=== PATIENT | male | born 1950 | race Caucasian/White ===

== ENCOUNTER 2025-01-19 19:59 | Emergency (ER) | payer OTHER ==
[~2025-01-19] VITALS: Ht 175.3 cm; Wt 90.9 kg
--- NOTE | 2025-01-19 20:23 | ED.PDOC ---
HPI (NEURO) HPI Comments 74-year-old male came to ER via EMS for altered level of consciousness. Per EMS, patient was found unresponsive, altered, lying in the floor of his house. Patient was last seen normal by family members 2 days ago. On arrival paramedics, patient was seen lying on the ground, urinary incontinent, with left-sided weakness/numbness, left facial asymmetry, slurred speech, appears confused and disoriented. Blood sugar on scene was 168. Per family patient has no history of seizures or strokes. Chief Complaint: Altered level of consciousness Time Seen by MD: 20:22 Reviewed Notes: Trekking Guide Notes Information Source: Emergency Med Personnel Mode of Arrival: EMS Severity: Moderate Dizziness/Weakness Severity: Unable to do activities Timing: Days Duration: Since onset Prehospital treatment: Accucheck Weakness Location: (L) Sided Numbness Location: (L) Sided Circumstances: Spontaneous History of: Hypertension Associated Signs and Symptoms: Altered Mental Status, Weakness, Numbness Past Medical History PAST MEDICAL HISTORY: HTN Surgical History: Pacemaker Family History Family History: Pt Confused Social History Smoker: Pt Confused Alcohol: Pt Confused Drugs: Pt Confused Lives In: Home Constitutional: denies: chills, diaphoresis, fatigue, fever, malaise, sweats, weakness, others EENTM: denies: blurred vision, double vision, ear bleeding, ear discharge, ear drainage, ear pain, ear ringing, eye pain, eye redness, hearing loss, mouth pain, mouth swelling, nasal discharge, nose bleeding, nose congestion, nose pain, photophobia, tearing, throat pain, throat swelling, voice changes, others Respiratory: denies: cough, hemoptysis, orthopnea, SOB at rest, shortness of breath, SOB with excertion, stridor, wheezing, others Cardiovascular: denies: chest pain, dizzy spells, diaphoresis, Dyspnea on exertion, edema, irregular heart beat, left arm pain, lightheadedness, pal pitations, PND, syncope, others Gastrointestinal: denies: abdomen distended, abdominal pain, blood streaked bowels, constipated, diarrhea, dysphagia, difficulty swallowing, hematemesis, melena, nausea, poor appetite, poor fluid intake, rectal bleeding, rectal pain, vomiting, others Genitourinary: denies: burning, dysuria, flank pain, frequency, hematuria, incontinence, penile discharge, penile sore, pain, testicle pain, testicle swelling, urgency, others Neurological: reports: left sided numbness, left sided weakness, speech problems, others (Left facial asymmetry); denies: dizziness, fainting, headache, numbness, paresthesia, pre-existing deficit, right sided numbness, right sided weakness, seizure, tingling, tremors, weakness Musculoskeletal: denies: back pain, gout, joint pain, joint swelling, muscle pain, muscle stiffness, neck pain, others Integumetry: denies: bruises, change in color, change in hair/nails, dryness, laceration, lesions, lumps, rash, wounds, others Allergic/Immunocompromised: denies: Difficulty Healing, Frequent Infections, Hives, Itching, others Hematologic/Lymphatic: denies: anemia, blood clots, easy bleeding, easy bruising, swollen glands, others Endocrine: denies: excessive hunger, excessive sweating, excessive thirst, excessive urination, flushing, intolerance to cold, intolerance to heat, unexplained weight gain, unexplained weight loss, others Psychiatric: denies: anxiety, bipolar disorder, depression, hopeless, panic disorder, schizophrenia, sleepless, suicidal, others Physical Exam General Appearance: No Apparent Distress, Normal HEENT: Normal ENT Inspection, Pharynx Normal, TMs Normal Neck: Full Range of Motion, Non-Tender, Normal, Normal Inspection Respiratory: Chest Non-Tender, Lungs Clear, No Accessory Muscle Use, No Respiratory Distress, Normal Breath Sounds Cardiovascular: No Edema, No JVD, No Murmur, No Gallop, Normal Peripheral Pu lses, Regular Rate/Rhythm Breast Exam: Deferred Gastrointestinal: No Organomegaly, Non Tender, No Pulsatile Mass, Normal Bowel Sounds, Soft Genitalia: Deferred Pelvic: Deferred Rectal: Deferred Extremities: No calf tenderness, Normal capillary refill, Normal inspection, Normal range of motion, Non-tender, No pedal edema Musculoskeletal : Apperance: Normal Neurologic: Alert, deputy manager II-XII nml as Tested, No Motor Deficits, Normal Affect, Normal Mood, No Sensory Deficits Cerebellar Function: Normal Reflexes: Normal Skin: Dry, Normal Color, Warm Lymphatic: No Adenopathy Was a procedure done? Was a procedure done?: No Differential Diagnosis (SZ) Seizure: CVA/TIA, Hypoxemia, Idiopathic, Mass Lesion, Syncope, Encephalopathy, Epilepsy-Break Through, Epilepsy-Status CVA: CVA, Encephalopathy X-Ray, Labs, Meds, VS Vital Signs Date Time Temp Pulse Resp B/P (MAP) Pulse Ox O2 Delivery O2 Flow Rate FiO2 01/19/25 20:10 62 01/19/25 20:08 99.0 90 22 130/59 (82) 90 99.0 Lab Test 01/19/25 22:53 01/19/25 21:48 01/19/25 21:11 01/19/25 20:15 Range/Units Troponin I High Sensitivity 813 *H 839 *H 757 *H </=54 ng/L Urine Color Light-orange Yellow Urine Clarity Turbid H Clear Urine pH 5.5 5.0-9.0 Urine Specific [place] 1.032 1.001-1.035 Urine Protein 1+ H Negative Urine Ketones Trace Negative Urine Blood 3+ H Negative /uL Urine Nitrite Negative Negative Urine Bilirubin Negative Negative Urine Urobilinogen Normal Negative mg/dL Urine Leukocyte Esterase Negative Negative /uL Urine RBC 16 0 - 3 /hpf Urine Microscopic WBC 7 H 0-3 /HPF Urine Squamous Epithelial Cells Few <5 /hpf Urine Bacteria None seen None Seen /hpf Urine Mucus Few None Seen Urine Glucose Normal Normal mg/dL Urine Opiates Screen Neg NEGATIVE Urine Fentanyl Screen Neg NEGATIVE Urine Barbiturates Screen Neg NEGATIVE Urine Phencyclidine Screen Neg NEGATIVE Urine Amphetamines Screen Neg NEGATIVE Urine Benzodiazepines Screen Neg NEGATIVE Urine Cocaine Screen Neg NEGATIVE Urine Cannabinoids Screen Neg NEGATIVE Prothrombin Time 11.6 9.3-11.8 sec Prothrombin Time INR 1.11 0.9-1.15 Activated Partial Thromboplast Time 24.2 L 24.5-34.5 SEC Creatine Kinase 10316 H 46-171 U/L White Blood Count 15.2 H 4.4-10.8 10^3/uL Red Blood Count 4.93 4.5-5.90 10^6/uL Hemoglobin 13.7 13.5-17.5 g/dL Hematocrit 42.9 41.0-53.0 % Mean Corpuscular Volume 87.0 80.0-100.0 fL Mean Corpuscular Hemoglobin 27.8 L 28.0-32.0 pg Mean Corpuscular Hemoglobin Concent 31.9 L 32.0-36.0 g/dL Red Cell Distribution Width 16.6 H 11.8-14.3 % Platelet Count 165 140-450 10^3/uL Mean Platelet Volume 8.2 6.9-10.8 fL Neutrophils (%) (Auto) 88.2 H 37.0-80.0 % Lymphocytes (%) (Auto) 4.2 L 10.0-50.0 % Monocytes (%) (Auto) 6.8 0.0-12.0 % Eosinophils (%) (Auto) 0.1 0.0-7.0 % Basophils (%) (Auto) 0.7 0.0-2.0 % Neutrophils # (Auto) 13.4 H 1.6-8.6 10 ^3/uL Lymphocytes # (Auto) 0.6 0.4-5.4 10 ^3/uL Monocytes # (Auto) 1.0 0-1.3 10 ^3/uL Eosinophils # (Auto) 0 0-0.8 10 ^3/uL Basophils # (Auto) 0.1 0-0.2 10 ^3/uL Nucleated Red Blood Cells 0.0 % Sodium Level 141 136-145 mmol/L Potassium Level 5.5 H 3.5-5.1 mmol/L Chloride Level 109 H 98-107 mmol/L Carbon Dioxide Level 21 20-31 mmol/L Anion Gap 11 5-15 Blood Urea Nitrogen 25 H 9-23 mg/dL Creatinine 1.36 H 0.700-1.30 mg/dL Glomerular Filtration Rate Calc 55 >90 mL/min BUN/Creatinine Ratio 18.4 10.0-20.0 Serum Glucose 133 H 74-106 mg/dL Calcium Level 9.6 8.7-10.4 mg/dL Magnesium Level 1.9 1.6-2.6 mg/dL Total Bilirubin 0.8 0.2-1.0 mg/dL Aspartate Amino Transferase (AST) 300 H 13-40 U/L Alanine Aminotransferase (ALT) 67 H 7-40 U/L Alkaline Phosphatase 105 46-116 U/L B-Type Natriuretic Peptide 1687.35 0-100 pg/mL Total Protein 7.0 5.7-8.2 g/dL Albumin 4.3 3.2-4.8 g/dL Plasma/Serum Blood Alcohol < 3.0 <10 mg/dL Current Medications Medications (Trade) Dose Ordered Sig/[place] Route Start Time Stop Time Status Last Admin Aspirin 300 mg ONCE ONCE [place] 01/19/25 22:00 01/19/25 22:01 DC 01/19/25 22:00 Sodium Chloride 1,000 ml @ 1,000 mls/hr Q1H ONCE IV 01/19/25 22:00 01/19/25 22:59 DC 01/19/25 22:00 EXAM: CT STROKE CTH HISTORY: left sided weakness, left facial droop COMPARISON: None TECHNIQUE: Axial images were obtained and reformatted in coronal and sagittal planes. All CT scans at this medical facility are performed using dose modulation techniques as appropriate to a performed exam including the following: Automated exposure control was utilized; adjustment of the MA and/or KV according to patient size; and use of iterative reconstruction technique. CT Dose: CTDI volume is 55 mGy. Dose-length product is 968 mGy*cm FINDINGS: Supratentorial Region: Large right MCA territorial infarcts involving the frontal, parietal and temporal lobes as well as the right caudate head and lentiform nucleus. 5 mm [id number] midline shift noted. Mild subfalcine herniation. No intracranial hemorrhage is noted. Posterior Fossa: No acute abnormality. Brainstem: Unremarkable. Sellar/Suprasellar Region: Unremarkable. Ventricles, Cisterns, Sulci: Age-appropriate. Orbits: Unremarkable. Paranasal Sinuses: Unremarkable. Mastoid Air Cells: Unremarkable. Vasculature: Dense right MCA reflecting thrombosis. Bones/Soft Tissues: No acute abnormality. Other: None. IMPRESSION: 1. Large acute right MCA territorial infarct involving the right frontal, parietal and temporal lobes as well as the right caudate head and lentiform nucleus with evidence of thrombosis of the M1 segment of the right MCA. 5 mm [id number] midline shift and mild subfalcine herniation noted. No intracranial hemorrhage. CHEST RADIOGRAPH Indication: weakness Technique: Single frontal view of the chest was obtained Comparison: None FINDINGS: Lines and Tubes: Dual-chamber pacemaker in place with pulse generator over the left chest. Lungs: No focal consolidation. Pleura: No effusion. No pneumothorax. Cardiomediastinal contours: Cardiac size enlarged. Bones: No acute osseous abnormality. IMPRESSION: 1. No acute cardiopulmonary disease. Time of 1ST Reevaluation: 20:19 Reevaluation 1ST: Unchanged Patient Education/Counseling: Diagnosis, Treatment Family Education/Counseling: No Family Present Departure 1 Departure Time of Disposition: 23:45 Impression: Primary Impression: Ischemic stroke Additional Impressions: Rhabdomyolysis Dehydration Intermediate coronary syndrome Disposition: 09 ADMITTED INPATIENT Admit to: Tele Condition: Critical Comments Acute Right MCA Stroke with Left-sided Weakness Chief Complaint: Found down with left-sided weakness and facial droop History of Present Illness: 74-year-old male with history of hypertension and prior pacemaker placement who was found down at his residence by family members. Patient was last known well approximately two days ago. Upon discovery, patient was noted to have new onset left facial droop, left-sided weakness, and expressive aphasia. Due to unknown time of onset exceeding tPA window (last known well >48 hours ago), patient was not a candidate for thrombolytic therapy. Initial evaluation revealed evidence of large acute right MCA stroke on imaging, accompanied by laboratory abnormalities including elevated troponins and acute kidney injury, likely related to prolonged down time. Review of Systems: Constitutional: Found down for prolonged period Neurological: Positive for left facial droop, left-sided weakness, expressive aphasia Other systems: Limited by patient's communication difficulties Medications: Not available due to patient's condition Allergies: Not available due to patient's condition Past Medical History: 1. Hypertension 2. Cardiac history requiring pacemaker Physical Exam: Neurological: - Left facial droop present - Left-sided weakness - Expressive aphasia noted Lab Results: WBC: 15.2, elevated Troponin trend: 757 ? 839 ? 813 Creatinine: 25.1 (severely elevated) Potassium: 5.5 (elevated) Evidence of rhabdomyolysis noted Imaging and Other Relevant Results: CT Head: Large acute right MCA stroke Chest X-ray: No acute pathology Medical Decision Making: Summary Statement: 74-year-old male with history of hypertension and pacemaker found down after approximately 48 hours with evidence of large right MCA stroke, complicated by acute kidney injury and rhabdomyolysis. Problem List: 1. Acute right MCA stroke 2. Acute kidney injury 3. Rhabdomyolysis 4. Hyperkalemia 5. Elevated troponin Differential Diagnosis: 1. Cardioembolic stroke 2. Large vessel atherosclerotic disease 3. Watershed infarct 4. Hemorrhagic conversion ED Course: Patient received IV fluids and rectal aspirin. Not a candidate for tPA due to unknown time of onset >48 hours. Admission planned for further management. Assessment and Plan: 1. Acute Right MCA Stroke: - Admit to Stroke Unit - Neurology consultation - Continue aspirin - Initiate stroke workup 2. Acute Kidney Injury and Rhabdomyolysis: - Aggressive IV fluid hydration - Serial creatinine and CK monitoring - Nephrology consultation 3. Hyperkalemia (K 5.5): - Close monitoring - Medical management as per nephrology recommendations 4. Elevated Troponin: - Cardiology consultation - Serial troponin monitoring - Evaluate for acute coronary syndrome vs. demand ischemia Billing Information: ICD-10: I63.411 - Cerebral infarction due to embolism of right middle cerebral artery ICD-10: N17.9 - Acute kidney failure, unspecified ICD-10: M62.82 - Rhabdomyolysis ICD-10: E87.5 - Hyperkalemia Critical Care Note Critical Care Time?: Yes (35 min-critical care time only) Critical care comment: CVA Total critical care time: Approximately 36 minutes Due to a high probability of clinically significant, life threatening deterioration, the patient required my highest level of preparedness to intervene emergently and I personally spent this critical care time directly and personally managing the patient. This critical care time included obtaining a history; examining the patient; pulse oximetry; ordering and review of studies; arranging urgent treatment with development of a management plan; evaluation of patient's response to treatment; frequent reassessment; and, discussions with other providers. This critical care time was performed to assess and manage the high probability of imminent, life-threatening deterioration that could result in multi-organ failure. It was exclusive of separately billable procedures and treating other patients. Stability Stability form required: No Heart Score Heart Score: Heart Score Response (Comments) Value History Slightly Suspicious 0 EKG Repolarization Disturb 1 Age >65 2 Risk Factors 1 or 2 risk factors 1 Troponin >3 x's Normal limit 2 Total 6 I personally scribed for MATILDA WISEMAN MD ([email or web address]) on 01/19/25 at 20:23. Electronically submitted by Vincent Rolle ([email or web address]). I personally scribed for MATILDA WISEMAN MD ([email or web address]) on 01/19/25 at 22:33. Electronically submitted by Vincent Rolle ([email or web address]). MATILDA WISEMAN MD January 19, 2025 20:23
[2025-01-19 20:42] LABS: Basophils # (auto) 0.1 10 ^3/uL (0-0.2); Basophils % (auto) 0.7 % (0.0-2.0); Eosinophils # (auto) 0 10 ^3/uL (0-0.8); Eosinophils % (auto) 0.1 % (0.0-7.0); Hematocrit 42.9 % (41.0-53.0); Hemoglobin 13.7 g/dL (13.5-17.5); Lymphocytes # (auto) 0.6 10 ^3/uL (0.4-5.4); Lymphocytes % (auto) 4.2 % (10.0-50.0); Mean Corpuscular Hemoglobin 27.8 pg (28.0-32.0); Mean Corpuscular Hgb Conc. 31.9 g/dL (32.0-36.0); Monocytes % (auto) 6.8 % (0.0-12.0); Neutrophils # (auto) 13.4 10 ^3/uL (1.6-8.6); Neutrophils % (auto) 88.2 % (37.0-80.0); Platelet Count (auto) 165 10^3/uL (140-450); Red Blood Cells 4.93 10^6/uL (4.5-5.90); Red Cell Distribution Width 16.6 % (11.8-14.3); White Blood Cell 15.2 10^3/uL (4.4-10.8)
[2025-01-19 20:52] LABS: Albumin 4.3 g/dL (3.2-4.8); Alkaline Phosphatase 105 U/L (46-116); Anion Gap 11 (5-15); BUN/Creatinine Ratio 18.4 (10.0-20.0); Bilirubin, Total 0.8 mg/dL (0.2-1.0); Calcium 9.6 mg/dL (8.7-10.4); Carbon Dioxide 21 mmol/L (20-31); Magnesium 1.9 mg/dL (1.6-2.6); Sodium 141 mmol/L (136-145)
[2025-01-19 20:55] LABS: Alanine Aminotransferase 67 U/L (7-40); Aspartate Aminotransferase 300 U/L (13-40); Blood Urea Nitrogen 25 mg/dL (9-23); Chloride 109 mmol/L (98-107); Glucose 133 mg/dL (74-106); Potassium 5.5 mmol/L (3.5-5.1)
--- NOTE | 2025-01-19 21:13 | DVH ---
CHEST RADIOGRAPH Indication: weakness Technique: Single frontal view of the chest was obtained Comparison: None FINDINGS: Lines and Tubes: Dual-chamber pacemaker in place with pulse generator over the left chest. Lungs: No focal consolidation. Pleura: No effusion. No pneumothorax. Cardiomediastinal contours: Cardiac size enlarged. Bones: No acute osseous abnormality. IMPRESSION: 1. No acute cardiopulmonary disease.
--- NOTE | 2025-01-19 21:21 | DVH ---
EXAM: CT STROKE CTH HISTORY: left sided weakness, left facial droop COMPARISON: None TECHNIQUE: Axial images were obtained and reformatted in coronal and sagittal planes. All CT scans at this medical facility are performed using dose modulation techniques as appropriate t o a performed exam including the following: Automated exposure control was utilized; adjustment of th e MA and/or KV according to patient size; and use of iterative reconstruction technique. CT Dose: CTDI volume is 55 mGy. Dose-length product is 968 mGy*cm FINDINGS: Supratentorial Region: Large right MCA territorial infarcts involving the frontal, parietal and temp oral lobes as well as the right caudate head and lentiform nucleus. 5 mm [id number] midline shift noted. Mild subfalcine herniation. No intracranial hemorrhage is noted. Posterior Fossa: No acute abnormality. Brainstem: Unremarkable. Sellar/Suprasellar Region: Unremarkable. Ventricles, Cisterns, Sulci: Age-appropriate. Orbits: Unremarkable. Paranasal Sinuses: Unremarkable. Mastoid Air Cells: Unremarkable. Vasculature: Dense right MCA reflecting thrombosis. Bones/Soft Tissues: No acute abnormality. Other: None. IMPRESSION: 1. Large acute right MCA territorial infarct involving the right frontal, parietal and temporal lobes as well as the right caudate head and lentiform nucleus with evidence of thrombosis of the M1 segmen t of the right MCA. 5 mm [id number] midline shift and mild subfalcine herniation noted. No intracr anial hemorrhage. Critical Result: Stroke Alert Findings discussed with Dr. Robertson , at 01/19/2025 09:15 PM, and acknowledged receipt and understandi ng of the findings. ..
[2025-01-19 21:34] LABS: INR 1.11 (0.9-1.15); Partial Thromboplastin Time 24.2 SEC (24.5-34.5); Prothrombin Time 11.6 sec (9.3-11.8)
[2025-01-19 21:50] VITALS: PULSE 60; RESP 30; O2SAT 95
[2025-01-19] MEDS: SODIUM CHLORIDE 0.9% 1,000 ML IV ONE (22:00)
[2025-01-19] MEDS: ASPirin 300 MG RECTAL SUPP PR ONE ×2 (22:00→22:03)
[2025-01-19 22:01] LABS: Urine Bacteria None Seen /hpf (None Seen)
[2025-01-19 22:15] LABS: Urine Blood 3+ /uL (Negative); Urine Clarity Turbid (Clear); Urine Color Light-Orange (Yellow); Urine Mucus FEW (None Seen); Urine Protein, UAD 1+ (Negative); Urine Specific Gravity 1.032 (1.001-1.035); Urine Squamous Epithelial Cell FEW /hpf (<5); Urine Urobilinogen Normal (Negative); Urine WBC 7 /HPF (0-3); Urine pH 5.5 (5.0-9.0)
[2025-01-19 22:27] LABS: Amphetamine Screen, Urine Neg (NEGATIVE); Barbiturate Scree,Urine Neg (NEGATIVE); Benzodiazephine Screen, Urine Neg (NEGATIVE); Cannabinoid Screen, Urine Neg (NEGATIVE); Cocaine Screen, Urine Neg (NEGATIVE); Opiate Scree,Urine Neg (NEGATIVE); Phencyclidine Screen, Urine Neg (NEGATIVE)
[2025-01-20] MEDS: IOHEXOL 350 MG/ML 100ML IJ ONE (00:10)
--- NOTE | 2025-01-20 00:53 | DVH ---
INDICATION: left sided weakness COMPARISON: None TECHNIQUE: CTA head without and with intravenous contrast. CTA neck with intravenous contrast. 3D image postprocessing was performed on a dedicated workstation and images were used for interpretation and reporting. Radiation Dose Information: CT Dose: CTDI volume is 22 mGy. Dose-length product is 871 mGy*cm FINDINGS: Left-sided cardiac device with partially visualized leads. CTA head: There is normal enhancement of the visualized distal internal carotid, anterior and middle cerebral a rteries. There is a normal anterior communicating artery complex. There are bilateral posterior com municating arteries. The vertebral, basilar, cerebellar and posterior cerebral arteries are within n ormal limits. The early parenchymal enhancement is grossly unremarkable. The visualized intracrania l venous structures are grossly unremarkable. CTA neck: The visualized thoracic aortic arch and proximal great vessels are unremarkable. The left common, internal and external carotid arteries are within normal limits. The right common, internal and external carotid arteries are within normal limits. The cervical segments of the right and left vertebral arteries are within normal limits. The biapical lungs demonstrate prominent interstitial opacities diffusely which may represent pulmona ry edema versus chronic interstitial disease. The surrounding soft tissues and osseous structures ar e otherwise unremarkable. IMPRESSION: No evidence of hemodynamically significant intracranial stenosis, proximal occlusion or aneurysm. No evidence of hemodynamically significant cervical stenosis or dissection. All CT scans at this medical facility are performed using dose modulation techniques as appropriate t o a performed exam including the following: Automated exposure control was utilized; adjustment of th e MA and/or KV according to patient size; and use of iterative reconstruction technique.
[2025-01-20 02:20] VITALS: BP 162/56; PULSE 60; RESP 27; TEMP 98.2; O2SAT 97
--- NOTE | 2025-01-20 06:09 | ECG ---
[facility] Test Date: 2025-01-19 Test Time: 20:10:29 Pat Name: DENTON GOYAL Department: ED Room: Gender: M Systems Architect: : [id number] Requested By: MATILDA WISEMAN Order Number: [id number] Reading MD: Rufino Hendricks Measurements Intervals [place] Rate: 62 P: 0 [place]: 53 QRS: -69 QRSD: 151 T: 81 QT: 456 QTc: 463 Interpretive Statements Ventricular-paced rhythm No further analysis attempted due to paced rhythm Electronically Signed On 01-20-2025 21:04:19 PDT by Rufino Hendricks Please click the below link to view image of tracing.
== END 2025-01-20 01:18 | disposition short-term general hospital (02) ==
LOC: ER 19:59 → EDBD 19:59 → ER 01-20 01:18
DX: M62.82 Rhabdomyolysis (principal); I63.9 Cerebral infarction, unspecified; E86.0 Dehydration; I20.0 Unstable angina; I10 Essential (primary) hypertension; Z95.0 Presence of cardiac pacemaker
CPT/HCPCS: 36415; 70450; 70496; 70498; 71045; 80053; 80307; 80320; 81001; 82550; 83735; 83880; 84484; 85025; 85610; 85730; 93005; 96360; 96361; 99285; J7030; Q9967

== ENCOUNTER 2025-07-10 18:20 | Inpatient (IN) | payer OTHER ==
[~2025-07-10] VITALS: Ht 170.2 cm; Wt 93.5 kg
[2025-07-10 18:44] VITALS: PULSE 79; RESP 27; O2SAT 94
--- NOTE | 2025-07-10 19:00 | ED.PDOC ---
Altered Mental Status HPI Comments 74-year-old male with a history of prior CVA resides at home with family but is on a trach and vent at baseline now brought in by ambulance after decreased mental status over the last 2 days. Family stated to EMS that the patient is usually alert and interactive but over the last couple of days his then somnolent and not responding well Chief Complaint: ALOC Time Seen by MD: 18:47 Allergies: Coded Allergies: NO KNOWN ALLERGIES (Unverified , 01/19/25) Information Source: Emergency Med Personnel Mode of Arrival: EMS Severity: Severe Timing: Days Duration: Since onset Past Medical History PAST MEDICAL HISTORY: CVA, HTN Surgical History: Pacemaker Surgical History (Other): Tracheostomy Family History Family History: Pt Confused Social History Smoker: Pt Confused Alcohol: Pt Confused Drugs: Pt Confused Lives In: Home Unable to Obtain due to: Altered Mental Status Physical Exam Exam Comments Appears chronically ill and bed-bound General Appearance: Mild Distress HEENT: Normal ENT Inspection, Pharynx Normal, TMs Normal Neck: Other (Trach in place, currently on vent with no air leaks noted) Respiratory: Chest Non-Tender, Lungs Clear, No Accessory Muscle Use, No Respiratory Distress, Normal Breath Sounds Cardiovascular: No Edema, No JVD, No Murmur, No Gallop, Normal Peripheral Pulses, Regular Rate/Rhythm Breast Exam: Deferred Gastrointestinal: No Organomegaly, Non Tender, No Pulsatile Mass, Normal Bowel Sounds, Soft Genitalia: Deferred Pelvic: Deferred Rectal: Deferred Extremities: No calf tenderness, Normal capillary refill, Normal inspection, Normal range of motion, Non-tender, No pedal edema Musculoskeletal : Apperance: Normal Neurologic: Other (Obtunded, nonverbal) Cerebellar Function: NOT DONE Reflexes: Normal Skin: Dry, Normal Color, Warm Lymphatic: No Adenopathy EKG EKG : Cardiac Rhythm: Aflutter Comments A flutter noted, normal rate Was a procedure done? Was a procedure done?: No Differential Diagnosis (ALOC) Differential Diagnosis: Dehydration, Hypoglycemia, Encephalopathy, Meningitis, Sepsis, Seizure, CVA, SAH, Drug Overdose, ETOH Intoxication, Heart Failure, Renal Failure, Other X-Ray, Labs, Meds, VS Vital Signs Date Time Temp Pulse Resp B/P (MAP) Pulse Ox O2 Delivery O2 Flow Rate FiO2 07/10/25 23:54 60 18 100/43 (62) 99 07/10/25 23:13 60 18 125/32 (63) 99 07/10/25 22:51 62 15 98 Trach Collar 10 100 100 07/10/25 22:43 60 14 111/39 (63) 100 07/10/25 22:30 60 18 127/31 (63) 98 35 07/10/25 22:00 70 122/40 (67) 100 07/10/25 21:45 62 18 122/40 (67) 07/10/25 21:30 60 18 120/40 (66) 100 07/10/25 21:15 60 18 121/29 (59) 100 07/10/25 21:00 60 18 127/31 (63) 100 07/10/25 20:45 61 18 119/40 (66) 100 07/10/25 20:30 60 18 82/37 (52) 98 07/10/25 20:15 60 15 94/43 (60) 97 07/10/25 20:00 60 18 96/45 (62) 100 50 07/10/25 20:00 63 07/10/25 19:45 61 13 96/45 (62) 100 07/10/25 19:30 61 18 100 Mechanical Ventilator+ 100 100 07/10/25 19:30 61 18 81/39 (53) 100 07/10/25 19:00 98.4 59 13 79/26 (43) 100 98.4 07/10/25 18:56 60 07/10/25 18:44 79 27 94 Trach Collar 10 100 100 07/10/25 18:44 79 27 86/47 (60) 94 07/10/25 18:25 62 18 86/47 (60) 100 100 Lab Test 07/10/25 23:48 07/10/25 23:45 07/10/25 22:11 07/10/25 20:45 Range/Units Urine Color Yellow Yellow Urine Clarity Clear Clear Urine pH 6.5 5.0-9.0 Urine Specific [place] 1.027 1.001-1.035 Urine Protein Negative Negative Urine Ketones Negative Negative Urine Blood Negative Negative /uL Urine Nitrite Negative Negative Urine Bilirubin Negative Negative Urine Urobilinogen 2 H Negative mg/dL Urine Leukocyte Esterase Negative Negative /uL Urine RBC None seen 0 - 3 /hpf Urine Microscopic WBC 1 0-3 /HPF Urine Squamous Epithelial Cells Few <5 /hpf Urine Bacteria None seen None Seen /hpf Urine Hyaline Casts Few 0 - 2 /lpf Urine Glucose Normal Normal mg/dL Urine Opiates Screen Pos NEGATIVE Urine Fentanyl Screen Neg NEGATIVE Urine Barbiturates Screen Neg NEGATIVE Urine Phencyclidine Screen Neg NEGATIVE Urine Amphetamines Screen Neg NEGATIVE Urine Benzodiazepines Screen Neg NEGATIVE Urine Cocaine Screen Neg NEGATIVE Urine Cannabinoids Screen Neg NEGATIVE Troponin I High Sensitivity 463 *H </=54 ng/L White Blood Count 7.2 4.4-10.8 10^3/uL Red Blood Count 3.82 L 4.5-5.90 10^6/uL Hemoglobin 10.7 L 13.5-17.5 g/dL Hematocrit 34.5 L 41.0-53.0 % Mean Corpuscular Volume 90.3 80.0-100.0 fL Mean Corpuscular Hemoglobin 28.0 28.0-32.0 pg Mean Corpuscular Hemoglobin Concent 31.0 L 32.0-36.0 g/dL Red Cell Distribution Width 18.3 H 11.8-14.3 % Platelet Count 68 L 140-450 10^3/uL Mean Platelet Volume 12.2 H 6.9-10.8 fL Neutrophils (%) (Auto) 76.7 37.0-80.0 % Lymphocytes (%) (Auto) 13.7 10.0-50.0 % Monocytes (%) (Auto) 7.5 0.0-12.0 % Eosinophils (%) (Auto) 1.9 0.0-7.0 % Basophils (%) (Auto) 0.2 0.0-2.0 % Neutrophils # (Auto) 5.5 1.6-8.6 10 ^3/uL Lymphocytes # (Auto) 1.0 0.4-5.4 10 ^3/uL Monocytes # (Auto) 0.5 0-1.3 10 ^3/uL Eosinophils # (Auto) 0.1 0-0.8 10 ^3/uL Basophils # (Auto) 0 0-0.2 10 ^3/uL Nucleated Red Blood Cells 0.1 % Platelet Estimate Decreased Large Platelets Few Anisocytosis (manual) Slight Test 07/10/25 20:07 07/10/25 19:22 07/10/25 19:15 Range/Units Troponin I High Sensitivity 445 *H 455 *H </=54 ng/L Blood Gas Specimen Type Arterial Blood Gas Sample Site Right radial Blood Gas Patient Temperature 37.0 Arterial Blood Date Drawn [id number] Arterial Blood pH 7.472 H 7.350-7.450 Arterial Blood Partial Pressure CO2 42.3 35.0-48.0 mmHg Arterial Blood Partial Pressure O2 402.6 *H 83.0-108.0 mmHg Arterial Blood HCO3 30.2 H 21.0-28.0 mmol/L Arterial Blood Oxygen Saturation 99.8 H 94.0-98.0 % Arterial Blood Base Excess 6.0 H -2.0-3.0 mmol/L Arterial Blood Oxyhemoglobin 98.7 H 94.0-98.0 % Arterial Blood Carboxyhemoglobin 0.6 0.5-1.5 % Arterial Blood Methemoglobin 0.5 0.0-1.5 % Shawn Test Modified Blood Gas Total Hemoglobin 13.30 L 13.5-17.5 g/dL Blood Gas Set Respiration Rate 18.0 Blood Gas Modality Vent - ac Blood Gas Spontaneous Rate 18 FiO2 % 100.0 Blood Gas Tidal Volume 500.0 Blood Gas Spontaneous Tidal Volume 582 Blood Gas Inspiratory Pressure 22.0 Blood Gas PEEP or CPAP 5.0 Bl Gas Inspiratory/Expiratory Ratio 1:2 Blood Gas Critical Value Read Back Yes Blood Gas Notified Whom katty Loyola Blood Gas Notified Time [id number] Blood Gas Notified By michelle Melissa Prothrombin Time 11.4 9.3-11.8 sec Prothrombin Time INR 1.08 0.9-1.15 Activated Partial Thromboplast Time 24.6 24.5-34.5 SEC Sodium Level 171 *H 136-145 mmol/L Potassium Level 4.7 3.5-5.1 mmol/L Chloride Level 125 H 98-107 mmol/L Carbon Dioxide Level 35 H 20-31 mmol/L Anion Gap 11 5-15 Blood Urea Nitrogen 58 H 9-23 mg/dL Creatinine 1.17 0.700-1.30 mg/dL Glomerular Filtration Rate Calc 66 >90 mL/min BUN/Creatinine Ratio 49.6 H 10.0-20.0 Serum Glucose 121 H 74-106 mg/dL Lactic Acid Level 1.9 0.4-2.0 mmol/L Calcium Level 9.1 8.7-10.4 mg/dL Magnesium Level 2.7 H 1.6-2.6 mg/dL Total Bilirubin 0.2 0.2-1.0 mg/dL Aspartate Amino Transferase (AST) 157 H 13-40 U/L Alanine Aminotransferase (ALT) 363 H 7-40 U/L Alkaline Phosphatase 133 H 46-116 U/L Total Protein 6.4 5.7-8.2 g/dL Albumin 3.5 3.2-4.8 g/dL Plasma/Serum Blood Alcohol < 3.0 <10 mg/dL Current Medications Medications (Trade) Dose Ordered Sig/Dayna Route Start Time Stop Time Status Last Admin Sodium Chloride 1,000 ml @ 1,000 mls/hr Q1H ONCE IVB 07/10/25 19:00 07/10/25 19:59 DC 07/10/25 19:36 Sodium Chloride 1,000 ml @ 1,000 mls/hr Q1H ONCE IV 07/10/25 20:45 07/10/25 21:44 DC 07/10/25 20:30 Piperacillin Sod/ Tazobactam Sod 100 ml @ 100 mls/hr ONCE ONCE IV 07/10/25 20:45 07/10/25 21:44 DC 07/11/25 00:00 Vancomycin HCl 250 ml @ 250 mls/hr ONCE ONCE IV 07/10/25 20:45 07/10/25 21:44 DC 07/10/25 21:02 Time of 1ST Reevaluation: 18:58 Reevaluation 1ST: Unchanged Patient Education/Counseling: Other, Pt Unresponsive Family Education/Counseling: No Family Present SEPSIS Sepsis Screen Date sepsis recognized/suspect: Jul 10, 2025 Time Sepsis recognized/suspect: 1824 Recent Procedure: No On Antibiotic Therapy: No Respiratory Rate >20: Yes Heart Rate >90: No Temp<36 C (96.8 F) or >38.3 C: No SBP <90 or MAP <65 mmHG: No New Acute Mental Status Change: Yes Is the patient on CPAP, BIPAP,: Yes Physician Orders Chest Portable (07/10/25 18:51) Head Without Contrast (07/10/25 18:51) Antique Repairer (07/10/25 18:51) Blood Culture (07/10/25 18:51) Ventilator Orders (07/10/25 19:30) Abg W/ Co-Ox (07/10/25 19:30) Respiratory Culture W/ Gs (07/10/25 19:30) Norepinephrine 8 Mg/250ml Kit (Levophed) (07/10/25 20:45) Insert/Manage Urinary Catheter QSHIFT (07/10/25 20:57) Vital Signs Date Time Temp Pulse Resp B/P (MAP) Pulse Ox O2 Delivery O2 Flow Rate FiO2 07/10/25 23:54 60 18 100/43 (62) 99 07/10/25 23:13 60 18 125/32 (63) 99 07/10/25 22:51 62 15 98 Trach Collar 10 100 100 07/10/25 22:43 60 14 111/39 (63) 100 07/10/25 22:30 60 18 127/31 (63) 98 35 07/10/25 22:00 70 122/40 (67) 100 07/10/25 21:45 62 18 122/40 (67) 07/10/25 21:30 60 18 120/40 (66) 100 07/10/25 21:15 60 18 121/29 (59) 100 07/10/25 21:00 60 18 127/31 (63) 100 07/10/25 20:45 61 18 119/40 (66) 100 07/10/25 20:30 60 18 82/37 (52) 98 07/10/25 20:15 60 15 94/43 (60) 97 07/10/25 20:00 60 18 96/45 (62) 100 50 07/10/25 20:00 63 07/10/25 19:45 61 13 96/45 (62) 100 07/10/25 19:30 61 18 100 Mechanical Ventilator+ 100 100 07/10/25 19:30 61 18 81/39 (53) 100 07/10/25 19:00 98.4 59 13 79/26 (43) 100 98.4 07/10/25 18:56 60 07/10/25 18:44 79 27 94 Trach Collar 10 100 100 07/10/25 18:44 79 27 86/47 (60) 94 07/10/25 18:25 62 18 86/47 (60) 100 100 Laboratory Tests Test 07/10/25 19:15 07/10/25 20:45 Lactic Acid Level 1.9 mmol/L (0.4-2.0) White Blood Count 7.2 10^3/uL (4.4-10.8) Medications Medications Dose Ordered Sig/Dayna Route Start Time Stop Time Status Last Admin Dose Admin Piperacillin Sod/ Tazobactam Sod 100 ml @ 100 mls/hr ONCE ONCE IV 07/10/25 20:45 07/10/25 21:44 DC 07/11/25 00:00 Sodium Chloride 1,000 ml @ 1,000 mls/hr Q1H ONCE IV 07/10/25 20:45 07/10/25 21:44 DC 07/10/25 20:30 Sodium Chloride 1,000 ml @ 1,000 mls/hr Q1H ONCE IVB 07/10/25 19:00 07/10/25 19:59 DC 07/10/25 19:36 Vancomycin HCl 250 ml @ 250 mls/hr ONCE ONCE IV 07/10/25 20:45 07/10/25 21:44 DC 07/10/25 21:02 Departure 1 Departure Time of Disposition: 21:00 Impression: Primary Impression: Metabolic encephalopathy Additional Impressions: Altered mental status Severe dehydration Hypernatremia Hypotension Disposition: ADMITTED INPATIENT Admit to: Tele Condition: Guarded Comments 74-year-old male with a history of prior stroke on a vent at home now with decreased mental status. On lab review the patient appears very dehydrated with a severe hypernatremia 167. Troponin elevated at 455. BUN creatinine and elevated 38 and 1.03. Patient was given IV fluids and IV antibiotics. His blood pressure improved. Patient will need to be admitted for supportive care and further workup. Critical Care Note Critical Care Time?: Yes (35 min-critical care time only) Critical care comment: Total critical care time: Approximately 36 minutes Due to a high probability of clinically significant, life threatening deterioration, the patient required my highest level of preparedness to intervene emergently and I personally spent this critical care time directly and personally managing the patient. This critical care time included obtaining a history; examining the patient; pulse oximetry; ordering and review of studies; arranging urgent treatment with development of a management plan; evaluation of patient's response to treatment; frequent reassessment; and, discussions with other providers. This critical care time was performed to assess and manage the high probability of imminent, life-threatening deterioration that could result in multi-organ failure. It was exclusive of separately billable procedures and treating other patients. Stability Stability form required: No Heart Score Heart Score: Heart Score Response (Comments) Value History Slightly Suspicious 0 EKG Repolarization Disturb 1 Age >65 2 Risk Factors 1 or 2 risk factors 1 Troponin Normal limit 0 Total 4 MATILDA WISEMAN MD Jul 10, 2025 19:00
--- NOTE | 2025-07-10 19:04 | ECG ---
[facility] Test Date: 2025-07-10 Test Time: 18:56:46 Pat Name: DENTON GOYAL Department: ED Room: 0204T Gender: M Bradder: gary : 1950 Requested By: MATILDA WISEMAN Order Number: [id number] Reading MD: Rufino Hendricks Measurements Intervals [place] Rate: 60 P: 0 CT: 0 QRS: 264 QRSD: 143 T: 98 QT: 503 QTc: 503 Interpretive Statements Afib/flutter and ventricular-paced rhythm No further analysis attempted due to paced rhythm Baseline wander in lead(s) II,III,aVF Electronically Signed On 07-16-2025 10:06:40 PST by Rufino Hendricks Please click the below link to view image of tracing.
[2025-07-10 19:30] VITALS: PULSE 61; RESP 18; O2SAT 100
[2025-07-10] MEDS: SODIUM CHLORIDE 0.9% 1,000 ML IVB ONE (19:36)
[2025-07-10 19:42] LABS: INR 1.08 (0.9-1.15); Partial Thromboplastin Time 24.6 SEC (24.5-34.5); Prothrombin Time 11.4 sec (9.3-11.8)
[2025-07-10 19:45] LABS: Albumin 3.5 g/dL (3.2-4.8); Anion Gap 11 (5-15); BUN/Creatinine Ratio 49.6 (10.0-20.0); Calcium 9.1 mg/dL (8.7-10.4); Potassium 4.7 mmol/L (3.5-5.1); Total Protein 6.4 g/dL (5.7-8.2)
[2025-07-10 20:00] VITALS: BP 96/45; PULSE 60; RESP 18; O2SAT 100
[2025-07-10 20:01] LABS: Base Excess 6.0 mmol/L (-2.0-3.0)
[2025-07-10] MEDS: SODIUM CHLORIDE 0.9% 1,000 ML IV ONE (20:30)
[2025-07-10 20:37] LABS: Alanine Aminotransferase 363 U/L (7-40); Alkaline Phosphatase 133 U/L (46-116); Bilirubin, Total 0.2 mg/dL (0.2-1.0); Blood Urea Nitrogen 58 mg/dL (9-23); Carbon Dioxide 35 mmol/L (20-31); Chloride 125 mmol/L (98-107); Glucose 121 mg/dL (74-106); Magnesium 2.7 mg/dL (1.6-2.6)
[2025-07-10 20:40] LABS: Sodium 171 mmol/L (136-145)
[2025-07-10] MEDS: NOREPINEPHRINE 8 MG/250ML KIT 250 ML IV SCH (20:45)
[2025-07-10] MEDS: PIPERACILLIN-TAZOB 3.375GM 100 ML IV ONE ×2 (20:45)
--- NOTE | 2025-07-10 20:51 | DVH ---
CHEST RADIOGRAPH Indication: SOB Technique: Single frontal view of the chest was obtained Comparison: XY CHEST XRAY 1 VIEW on DOS: 01/19/25 FINDINGS: Lines and Tubes: Tracheostomy tube in place. Pacemaker in place Lungs: No focal consolidation. Pleura: No effusion. No pneumothorax. Cardiomediastinal contours: Cardiomegaly with small left pleural effusion Bones: No acute osseous abnormality. IMPRESSION: 1. Stable cardiomegaly with pulse generator over the left chest. 2. Tracheostomy tube in place. 3. Small left pleural effusion.
[2025-07-10] MEDS: VANCOMYCIN 1GM/250ML KIT 250 ML IV ONE ×2 (21:02→21:06)
[2025-07-10 21:38] LABS: Hematocrit 34.5 % (41.0-53.0); Hemoglobin 10.7 g/dL (13.5-17.5); Mean Corpuscular Hemoglobin 28.0 pg (28.0-32.0); Mean Corpuscular Volume 90.3 fL (80.0-100.0); Nucleated Red Blood Cells % 0.1 %
[2025-07-10 21:54] LABS: Anisocytosis Slight
[2025-07-10 22:30] VITALS: BP 127/31; PULSE 60; RESP 18; O2SAT 98
[2025-07-10 22:51] VITALS: PULSE 62; RESP 15; O2SAT 98
--- NOTE | 2025-07-10 23:07 | DVH ---
EXAM: CT HEAD WITHOUT CONTRAST INDICATION: ALOC TECHNIQUE: CT of the head without intravenous contrast. Radiation Dose Information: CT Dose: CTDI volume is 53.54 mGy. Dose-length product is 967.11 mGy*cm The dose indicators for CT are the volume Computed Tomography (CT) Dose Index (CTDIvol) and the Dose Length Product (DLP), and are measured in units of mGy and mGy-cm, respectively. These indicators are not patient dose, but values generated from the CT scanner acquisition factors. The report includes radiation exposure data for exposures received during this examination. COMPARISON: CT ANGIO HEAD/NECK on DOS: 01/20/25, CT STROKE CTH on DOS: 01/19/25 FINDINGS: There is no evidence of acute intracranial hemorrhage, extra-axial collection, mass effect, midline shift, herniation or hydrocephalus. The ventricles, sulci and cisterns are age appropriate. Large remote infarct throughout of the right temporal lobe extending into the inferior frontal and inferior parietal lobes. Patchy periventricular and subcortical white matter hypoattenuation is nonspecific but may be related to small vessel ischemic disease. The visualized paranasal sinuses and mastoid air cells are clear. The surrounding soft tissues and osseous structures are unremarkable. IMPRESSION: No acute intracranial abnormality.
[2025-07-11] VITALS (42 sets, daily range): BP systolic 97–125; BP diastolic 40–78; PULSE 60–71; RESP 8–21; TEMP 97.9–98.4; O2SAT 97–100
[2025-07-11] MEDS ORDERED: MORPHINE SULFATE INJ 2 MG/ml SYRG IV PRN
[2025-07-11] MEDS ORDERED: NITROGLYCERIN 0.4 MG SL TAB SL PRN
[2025-07-11 00:14] LABS: Amphetamine Screen, Urine Neg (NEGATIVE); Barbiturate Scree,Urine Neg (NEGATIVE); Benzodiazephine Screen, Urine Neg (NEGATIVE); Cannabinoid Screen, Urine Neg (NEGATIVE); Cocaine Screen, Urine Neg (NEGATIVE); Opiate Scree,Urine Pos (NEGATIVE); Phencyclidine Screen, Urine Neg (NEGATIVE)
[2025-07-11 00:27] LABS: Urine Protein, UAD Negative (Negative)
[2025-07-11] MEDS ORDERED: ALBUTEROL SULF 2.5 MG/0.5ML(0.5%) NEB SOLN NEB PRN (00:30)
[2025-07-11] MEDS ORDERED: ONDANSETRON HCL 4 MG/2 ML VIAL IV PRN (00:30)
[2025-07-11] MEDS ORDERED: ACETAMINOPHEN 325 MG TAB PO PRN (00:30)
[2025-07-11] MEDS: D5W/SOD CHL 0.45% 1,000 ML IV SCH (03:00)
[2025-07-11 04:40] LABS: Potassium 4.0 mmol/L (3.5-5.1)
[2025-07-11 04:41] LABS: Calcium 9.3 mg/dL (8.7-10.4); Chloride 127 mmol/L (98-107)
[2025-07-11 04:42] LABS: Sodium 167 mmol/L (136-145)
[2025-07-11 04:46] LABS: BUN/Creatinine Ratio 36.9 (10.0-20.0); Blood Urea Nitrogen 38 mg/dL (9-23); Glucose 112 mg/dL (74-106)
--- NOTE | 2025-07-11 05:01 | DVHHP2 ---
Review of Systems Allergies: Coded Allergies: NO KNOWN ALLERGIES (Unverified , 01/19/25) Medications Current Medications Medications Dose Ordered Sig/Dayna Route Start Time Stop Time Status Last Admin Dose Admin Norepinephrine Bitartrate 250 ml @ 3.75 mls/hr Q24H IV 07/10/25 20:45 Nitroglycerin 0.4 mg Q5MINP PRN SL 07/11/25 00:00 Morphine Sulfate 2 mg Q30M PRN IV 07/11/25 00:00 Dextrose/Sodium Chloride 1,000 ml @ 85 mls/hr [id number] IV 07/11/25 00:30 07/11/25 03:00 85 MLS/HR Albuterol 2.5 mg Q6HPRN PRN NEB 07/11/25 00:30 Ceftriaxone Sodium 50 ml @ 100 mls/hr DAILY@09 IV 07/11/25 09:00 Exam Vital Signs Vital Signs Date Time Temp Pulse Resp B/P (MAP) Pulse Ox O2 Delivery O2 Flow Rate FiO2 07/11/25 04:36 60 21 104/41 (62) 97 30 07/11/25 04:36 Mechanical Ventilator+ 07/11/25 01:00 98.4 98.4 07/10/25 22:51 10 Labs/Xrays Labs Test 07/11/25 04:12 07/10/25 23:48 07/10/25 23:45 07/10/25 22:11 Range/Units Sodium Level 167 *H 136-145 mmol/L Potassium Level 4.0 3.5-5.1 mmol/L Chloride Level 127 H 98-107 mmol/L Blood Urea Nitrogen 38 #H 9-23 mg/dL Creatinine 1.03 0.700-1.30 mg/dL Glomerular Filtration Rate Calc 77 >90 mL/min BUN/Creatinine Ratio 36.9 H 10.0-20.0 Serum Glucose 112 H 74-106 mg/dL Calcium Level 9.3 8.7-10.4 mg/dL Urine Color Yellow Yellow Urine Clarity Clear Clear Urine pH 6.5 5.0-9.0 Urine Specific [place] 1.027 1.001-1.035 Urine Protein Negative Negative Urine Ketones Negative Negative Urine Blood Negative Negative /uL Urine Nitrite Negative Negative Urine Bilirubin Negative Negative Urine Urobilinogen 2 H Negative mg/dL Urine Leukocyte Esterase Negative Negative /uL Urine RBC None seen 0 - 3 /hpf Urine Microscopic WBC 1 0-3 /HPF Urine Squamous Epithelial Cells Few <5 /hpf Urine Bacteria None seen None Seen /hpf Urine Hyaline Casts Few 0 - 2 /lpf Urine Glucose Normal Normal mg/dL Urine Opiates Screen Pos NEGATIVE Urine Fentanyl Screen Neg NEGATIVE Urine Barbiturates Screen Neg NEGATIVE Urine Phencyclidine Screen Neg NEGATIVE Urine Amphetamines Screen Neg NEGATIVE Urine Benzodiazepines Screen Neg NEGATIVE Urine Cocaine Screen Neg NEGATIVE Urine Cannabinoids Screen Neg NEGATIVE Troponin I High Sensitivity 463 *H </=54 ng/L Test 07/10/25 20:45 07/10/25 19:22 07/10/25 19:15 Range/Units White Blood Count 7.2 4.4-10.8 10^3/uL Red Blood Count 3.82 L 4.5-5.90 10^6/uL Hemoglobin 10.7 L 13.5-17.5 g/dL Hematocrit 34.5 L 41.0-53.0 % Mean Corpuscular Volume 90.3 80.0-100.0 fL Mean Corpuscular Hemoglobin 28.0 28.0-32.0 pg Mean Corpuscular Hemoglobin Concent 31.0 L 32.0-36.0 g/dL Red Cell Distribution Width 18.3 H 11.8-14.3 % Platelet Count 68 L 140-450 10^3/uL Mean Platelet Volume 12.2 H 6.9-10.8 fL Neutrophils (%) (Auto) 76.7 37.0-80.0 % Lymphocytes (%) (Auto) 13.7 10.0-50.0 % Monocytes (%) (Auto) 7.5 0.0-12.0 % Eosinophils (%) (Auto) 1.9 0.0-7.0 % Basophils (%) (Auto) 0.2 0.0-2.0 % Neutrophils # (Auto) 5.5 1.6-8.6 10 ^3/uL Lymphocytes # (Auto) 1.0 0.4-5.4 10 ^3/uL Monocytes # (Auto) 0.5 0-1.3 10 ^3/uL Eosinophils # (Auto) 0.1 0-0.8 10 ^3/uL Basophils # (Auto) 0 0-0.2 10 ^3/uL Nucleated Red Blood Cells 0.1 % Platelet Estimate Decreased Large Platelets Few Anisocytosis (manual) Slight Blood Gas Specimen Type Arterial Blood Gas Sample Site Right radial Blood Gas Patient Temperature 37.0 Arterial Blood Date Drawn [id number] Arterial Blood pH 7.472 H 7.350-7.450 Arterial Blood Partial Pressure CO2 42.3 35.0-48.0 mmHg Arterial Blood Partial Pressure O2 402.6 *H 83.0-108.0 mmHg Arterial Blood HCO3 30.2 H 21.0-28.0 mmol/L Arterial Blood Oxygen Saturation 99.8 H 94.0-98.0 % Arterial Blood Base Excess 6.0 H -2.0-3.0 mmol/L Arterial Blood Oxyhemoglobin 98.7 H 94.0-98.0 % Arterial Blood Carboxyhemoglobin 0.6 0.5-1.5 % Arterial Blood Methemoglobin 0.5 0.0-1.5 % Shawn Test Modified Blood Gas Total Hemoglobin 13.30 L 13.5-17.5 g/dL Blood Gas Set Respiration Rate 18.0 Blood Gas Modality Vent - ac Blood Gas Spontaneous Rate 18 FiO2 % 100.0 Blood Gas Tidal Volume 500.0 Blood Gas Spontaneous Tidal Volume 582 Blood Gas Inspiratory Pressure 22.0 Blood Gas PEEP or CPAP 5.0 Bl Gas Inspiratory/Expiratory Ratio 1:2 Blood Gas Critical Value Read Back Yes Blood Gas Notified Whom katty [place] Blood Gas Notified Time [id number] Blood Gas Notified By michelle Melissa Prothrombin Time 11.4 9.3-11.8 sec Prothrombin Time INR 1.08 0.9-1.15 Activated Partial Thromboplast Time 24.6 24.5-34.5 SEC Lactic Acid Level 1.9 0.4-2.0 mmol/L Magnesium Level 2.7 H 1.6-2.6 mg/dL Total Bilirubin 0.2 0.2-1.0 mg/dL Aspartate Amino Transferase (AST) 157 H 13-40 U/L Alanine Aminotransferase (ALT) 363 H 7-40 U/L Alkaline Phosphatase 133 H 46-116 U/L Total Protein 6.4 5.7-8.2 g/dL Albumin 3.5 3.2-4.8 g/dL Plasma/Serum Blood Alcohol < 3.0 <10 mg/dL SEPSIS Sepsis Screen Date sepsis recognized/suspect: Jul 10, 2025 Time Sepsis recognized/suspect: 2250 Recent Procedure: No On Antibiotic Therapy: Yes Respiratory Rate >20: No Heart Rate >90: No Temp<36 C (96.8 F) or >38.3 C: No SBP <90 or MAP <65 mmHG: No New Acute Mental Status Change: No Is the patient on CPAP, BIPAP,: Yes Physician Orders Admit (07/10/25 23:58) Nitroglycerin Sublingual (Ntrostat Subli (07/11/25 00:00) Morphine Sulfate Injection (07/11/25 00:00) Stat Ekg For Chest Pain (07/10/25 23:58) Notify Md Of Changes From Base (07/10/25 23:58) Station Captain For 24 Hours (07/10/25:58) Emergency Dysrhythmia Protocol (07/10/2558) Rhythm Strips Once Every Shift (07/10/25 23:58) Oxygen By Nasal Cannula (07/10/25 23:58) D5w/Sod Chl 0.45% (D5w 1/2ns) (07/11/25 00:30) * Cardiology Consult (07/11/25 00:18) Albuterol Medneb (Ventolin Medneb) (07/11/25 00:30) Basic Metabolic Panel (07/11/25 04:00) Ceftriaxone 1gm/50ml (Rocephin) (07/11/25 09:00) Complete Blood Count (07/12/25 04:00) Comprehensive Metabolic Panel (07/12/25 04:00) Condition: Unstable (07/11/25 00:18) Maintain Bed Rest (07/11/25 00:18) Sequential Compression Device (07/11/25 ) Sodium (07/11/25 12:00) Sodium (07/11/25 18:00) Transfer Orders (07/11/25 00:26) Ventilator Orders (07/11/25 00:36) Vital Signs Date Time Temp Pulse Resp B/P (MAP) Pulse Ox O2 Delivery O2 Flow Rate FiO2 07/11/25 04:36 60 21 104/41 (62) 97 30 07/11/25 04:36 97 Mechanical Ventilator+ 30 30 07/11/25 04:36 97 Mechanical Ventilator 07/11/25 02:01 60 17 98 Mechanical Ventilator+ 30 30 07/11/25 01:53 71 16 111/40 (63) 99 30 07/11/25 01:43 60 17 101/40 (60) 98 07/11/25 01:43 60 17 101/40 (60) 98 07/11/25 01:00 98.4 60 18 100/43 99 30 98.4 07/11/25 00:10 64 18 114/43 (66) 98 30 07/10/25 23:54 60 18 100/43 (62) 99 07/10/25 23:13 60 18 125/32 (63) 99 07/10/25 22:51 62 15 98 Trach Collar 10 100 100 07/10/25 22:43 60 14 111/39 (63) 100 07/10/25 22:30 60 18 127/31 (63) 98 35 07/10/25 22:00 70 122/40 (67) 100 07/10/25 21:45 62 18 122/40 (67) 07/10/25 21:30 60 18 120/40 (66) 100 07/10/25 21:15 60 18 121/29 (59) 100 Laboratory Tests Test 07/10/25 19:15 07/10/25 20:45 Lactic Acid Level 1.9 mmol/L (0.4-2.0) White Blood Count 7.2 10^3/uL (4.4-10.8) Medications Medications Dose Ordered Sig/Dayna Route Start Time Stop Time Status Last Admin Dose Admin Dextrose/Sodium Chloride 1,000 ml @ 85 mls/hr [id number] IV 07/11/25 00:30 07/11/25 03:00 85 MLS/HR Piperacillin Sod/ Tazobactam Sod 100 ml @ 100 mls/hr ONCE ONCE IV 07/10/25 20:45 07/10/25 21:44 DC 07/11/25 00:00 100 MLS/HR Sodium Chloride 1,000 ml @ 1,000 mls/hr Q1H ONCE IV 07/10/25 20:45 07/10/25 21:44 DC 07/10/25 20:30 1,000 MLS/HR Sodium Chloride 1,000 ml @ 1,000 mls/hr Q1H ONCE IVB 07/10/25 19:00 07/10/25 19:59 DC 07/10/25 19:36 1,000 MLS/HR Vancomycin HCl 250 ml @ 250 mls/hr ONCE ONCE IV 07/10/25 20:45 07/10/25 21:44 DC 07/10/25 21:02 250 MLS/HR Assessment/Plan My Orders Orders - SUYAPA QUINTERO Procedure Category Date Status Time Admit ADMIT 07/10/25 Transmitted 23:58 Nitroglycerin PHA 07/11/25 In Process Sublingual (Ntrostat 00:00 Morphine Sulfate PHA 07/11/25 In Process Injection 00:00 Stat Ekg For Chest [place] 07/10/25 In Process Pain 23:58 Notify Of Changes [facility] 07/10/25 In Process From Base 23:58 Station Captain For [facility] 07/10/25 In Process 24 Hours 23:58 Emergency Dysrhythmia [facility] 07/10/25 In Process Protocol 23:58 Rhythm Strips Once [facility] 07/10/25 In Process Every Shift 23:58 Oxygen By Nasal RT 07/10/25 Transmitted Cannula 23:58 D5w/Sod Chl 0.45% PHA 07/11/25 In Process (D5w 1/2ns) 00:30 * Cardiology Consult CONS 07/11/25 Transmitted 00:18 Albuterol Medneb PHA 07/11/25 In Process (Ventolin Medneb) 00:30 Basic Metabolic Panel LAB 07/11/25 In Process 04:00 Ceftriaxone 1gm/50ml PHA 07/11/25 In Process (Rocephin) 09:00 Complete Blood Count LAB 07/12/25 Verified 04:00 Comprehensive LAB 07/12/25 Verified Metabolic Panel 04:00 Condition: Unstable [place] 07/11/25 In Process 00:18 Maintain Bed Rest [facility] 07/11/25 In Process 00:18 Sequential [place] 07/11/25 In Process Compression Device Sodium LAB 07/11/25 Logged 12:00 Sodium LAB 07/11/25 Logged 18:00 Transfer Orders XFER 07/11/25 Transmitted 00:26 Date of Service: Jul 10, 2025 Billing Provider: SUYAPA QUINTERO Common Visit Codes: [id number] CARE 30-74 MIN SUYAPA QUINTERO Jul 11, 2025 05:01
--- NOTE | 2025-07-11 05:11 | DVHHP2 ---
History of Present Illness Reason for Visit: Altered mental status History of Present Illness 74-year-old male presents for evaluation of altered mental status. Patient with a history of CVAs bed ridden and nonverbal. Patient noted by family members to be less alert over the past couple of days. so they brought him in for further evaluation. No family at bedside to provide further history. Past Medical History CVA, hypertension Past Surgical History Pacemaker, tracheostomy Family History Noncontributory Smoke: No ALCOHOL: none Drugs: None Lives: with Family Review of Systems Review of Systems Review of systems can not be completed patient is nonverbal Allergies: Coded Allergies: NO KNOWN ALLERGIES (Unverified , 01/19/25) Medications Current Medications Medications Dose Ordered Sig/Dayna Route Start Time Stop Time Status Last Admin Dose Admin Norepinephrine Bitartrate 250 ml @ 3.75 mls/hr Q24H IV 07/10/25 20:45 Nitroglycerin 0.4 mg Q5MINP PRN SL 07/11/25 00:00 Morphine Sulfate 2 mg Q30M PRN IV 07/11/25 00:00 Dextrose/Sodium Chloride 1,000 ml @ 85 mls/hr [id number] IV 07/11/25 00:30 07/11/25 03:00 85 MLS/HR Albuterol 2.5 mg Q6HPRN PRN NEB 07/11/25 00:30 Ceftriaxone Sodium 50 ml @ 100 mls/hr DAILY@09 IV 07/11/25 09:00 Exam Vital Signs Vital Signs Date Time Temp Pulse Resp B/P (MAP) Pulse Ox O2 Delivery O2 Flow Rate FiO2 07/11/25 04:36 60 21 104/41 (62) 97 30 07/11/25 04:36 Mechanical Ventilator+ 07/11/25 01:00 98.4 98.4 07/10/25 22:51 10 Exam Gen: 74-year-old male in mild distress. Skin: Warm, dry, normal color and texture, no rash. HEENT: Normocephalic atraumatic, mucous membranes moist and pink. Neck: Cervical and supraclavicular nodes normal without enlargement, trachea is midline, thyroid gland is normal without masses. Pulmonary: Tracheostomy, diminished breath sounds Cardiac: Regular rate and rhythm. No murmur Abdomen: Soft, nontender, nondistended, bowel sounds present all 4 quadrants, no guarding, no rigidity, no organomegaly. Extremities: No cyanosis, clubbing, no edema Neuro: Cranial nerves II through XII grossly intact, normal affect and speech, no focal motor deficits. Labs/Xrays ORDERING PHYSICIAN: MATILDA WISEMAN MD PROCEDURE(s): CXRP - CHEST PORTABLE REASON: SOB ORDER NUMBER(s): [id number], ACCESSION NUMBER(s): [id number] CHEST RADIOGRAPH Indication: SOB Technique: Single frontal view of the chest was obtained Comparison: XY CHEST XRAY 1 VIEW on DOS: 01/19/25 FINDINGS: Lines and Tubes: Tracheostomy tube in place. Pacemaker in place Lungs: No focal consolidation. Pleura: No effusion. No pneumothorax. Cardiomediastinal contours: Cardiomegaly with small left pleural effusion Bones: No acute osseous abnormality. IMPRESSION: 1. Stable cardiomegaly with pulse generator over the left chest. 2. Tracheostomy tube in place. 3. Small left pleural effusion. Electronically Signed by: Demond Loomis at ORDERING PHYSICIAN: MATILDA WISEMAN MD PROCEDURE(s): HWOCT - HEAD WITHOUT CONTRAST REASON: ALOC ORDER NUMBER(s): [id number], ACCESSION NUMBER(s): [id number] EXAM: CT HEAD WITHOUT CONTRAST INDICATION: ALOC TECHNIQUE: CT of the head without intravenous contrast. Radiation Dose Information: CT Dose: CTDI volume is 53.54 mGy. Dose-length product is 967.11 mGy*cm The dose indicators for CT are the volume Computed Tomography (CT) Dose Index (CTDIvol) and the Dose Length Product (DLP), and are measured in units of mGy and mGy-cm, respectively. These indicators are not patient dose, but values generated from the CT scanner acquisition factors. The report includes radiation exposure data for exposures received during this examination. COMPARISON: CT ANGIO HEAD/NECK on DOS: 01/20/25, CT STROKE CTH on DOS: 01/19/25 FINDINGS: There is no evidence of acute intracranial hemorrhage, extra-axial collection, mass effect, midline shift, herniation or hydrocephalus. The ventricles, sulci and cisterns are age appropriate. Large remote infarct throughout of the right temporal lobe extending into the inferior frontal and inferior parietal lobes. Patchy periventricular and subcortical white matter hypoattenuation is nonspecific but may be related to small vessel ischemic disease. The visualized paranasal sinuses and mastoid air cells are clear. The surrounding soft tissues and osseous structures are unremarkable. IMPRESSION: No acute intracranial abnormality. Labs Test 07/11/25 04:12 07/10/25 23:48 07/10/25 23:45 07/10/25 22:11 Range/Units Sodium Level 167 *H 136-145 mmol/L Potassium Level 4.0 3.5-5.1 mmol/L Chloride Level 127 H 98-107 mmol/L Blood Urea Nitrogen 38 #H 9-23 mg/dL Creatinine 1.03 0.700-1.30 mg/dL Glomerular Filtration Rate Calc 77 >90 mL/min BUN/Creatinine Ratio 36.9 H 10.0-20.0 Serum Glucose 112 H 74-106 mg/dL Calcium Level 9.3 8.7-10.4 mg/dL Urine Color Yellow Yellow Urine Clarity Clear Clear Urine pH 6.5 5.0-9.0 Urine Specific [place] 1.027 1.001-1.035 Urine Protein Negative Negative Urine Ketones Negative Negative Urine Blood Negative Negative /uL Urine Nitrite Negative Negative Urine Bilirubin Negative Negative Urine Urobilinogen 2 H Negative mg/dL Urine Leukocyte Esterase Negative Negative /uL Urine RBC None seen 0 - 3 /hpf Urine Microscopic WBC 1 0-3 /HPF Urine Squamous Epithelial Cells Few <5 /hpf Urine Bacteria None seen None Seen /hpf Urine Hyaline Casts Few 0 - 2 /lpf Urine Glucose Normal Normal mg/dL Urine Opiates Screen Pos NEGATIVE Urine Fentanyl Screen Neg NEGATIVE Urine Barbiturates Screen Neg NEGATIVE Urine Phencyclidine Screen Neg NEGATIVE Urine Amphetamines Screen Neg NEGATIVE Urine Benzodiazepines Screen Neg NEGATIVE Urine Cocaine Screen Neg NEGATIVE Urine Cannabinoids Screen Neg NEGATIVE Troponin I High Sensitivity 463 *H </=54 ng/L Test 07/10/25 20:45 07/10/25 19:22 07/10/25 19:15 Range/Units White Blood Count 7.2 4.4-10.8 10^3/uL Red Blood Count 3.82 L 4.5-5.90 10^6/uL Hemoglobin 10.7 L 13.5-17.5 g/dL Hematocrit 34.5 L 41.0-53.0 % Mean Corpuscular Volume 90.3 80.0-100.0 fL Mean Corpuscular Hemoglobin 28.0 28.0-32.0 pg Mean Corpuscular Hemoglobin Concent 31.0 L 32.0-36.0 g/dL Red Cell Distribution Width 18.3 H 11.8-14.3 % Platelet Count 68 L 140-450 10^3/uL Mean Platelet Volume 12.2 H 6.9-10.8 fL Neutrophils (%) (Auto) 76.7 37.0-80.0 % Lymphocytes (%) (Auto) 13.7 10.0-50.0 % Monocytes (%) (Auto) 7.5 0.0-12.0 % Eosinophils (%) (Auto) 1.9 0.0-7.0 % Basophils (%) (Auto) 0.2 0.0-2.0 % Neutrophils # (Auto) 5.5 1.6-8.6 10 ^3/uL Lymphocytes # (Auto) 1.0 0.4-5.4 10 ^3/uL Monocytes # (Auto) 0.5 0-1.3 10 ^3/uL Eosinophils # (Auto) 0.1 0-0.8 10 ^3/uL Basophils # (Auto) 0 0-0.2 10 ^3/uL Nucleated Red Blood Cells 0.1 % Platelet Estimate Decreased Large Platelets Few Anisocytosis (manual) Slight Blood Gas Specimen Type Arterial Blood Gas Sample Site Right radial Blood Gas Patient Temperature 37.0 Arterial Blood Date Drawn [id number] Arterial Blood pH 7.472 H 7.350-7.450 Arterial Blood Partial Pressure CO2 42.3 35.0-48.0 mmHg Arterial Blood Partial Pressure O2 402.6 *H 83.0-108.0 mmHg Arterial Blood HCO3 30.2 H 21.0-28.0 mmol/L Arterial Blood Oxygen Saturation 99.8 H 94.0-98.0 % Arterial Blood Base Excess 6.0 H -2.0-3.0 mmol/L Arterial Blood Oxyhemoglobin 98.7 H 94.0-98.0 % Arterial Blood Carboxyhemoglobin 0.6 0.5-1.5 % Arterial Blood Methemoglobin 0.5 0.0-1.5 % Shawn Test Modified Blood Gas Total Hemoglobin 13.30 L 13.5-17.5 g/dL Blood Gas Set Respiration Rate 18.0 Blood Gas Modality Vent - ac Blood Gas Spontaneous Rate 18 FiO2 % 100.0 Blood Gas Tidal Volume 500.0 Blood Gas Spontaneous Tidal Volume 582 Blood Gas Inspiratory Pressure 22.0 Blood Gas PEEP or CPAP 5.0 Bl Gas Inspiratory/Expiratory Ratio 1:2 Blood Gas Critical Value Read Back Yes Blood Gas Notified Whom katty Loyola Blood Gas Notified Time [id number] Blood Gas Notified By Rt, michelle morales Prothrombin Time 11.4 9.3-11.8 sec Prothrombin Time INR 1.08 0.9-1.15 Activated Partial Thromboplast Time 24.6 24.5-34.5 SEC Lactic Acid Level 1.9 0.4-2.0 mmol/L Magnesium Level 2.7 H 1.6-2.6 mg/dL Total Bilirubin 0.2 0.2-1.0 mg/dL Aspartate Amino Transferase (AST) 157 H 13-40 U/L Alanine Aminotransferase (ALT) 363 H 7-40 U/L Alkaline Phosphatase 133 H 46-116 U/L Total Protein 6.4 5.7-8.2 g/dL Albumin 3.5 3.2-4.8 g/dL Plasma/Serum Blood Alcohol < 3.0 <10 mg/dL SEPSIS Sepsis Screen Date sepsis recognized/suspect: Jul 10, 2025 Time Sepsis recognized/suspect: 2249 Recent Procedure: No On Antibiotic Therapy: Yes Respiratory Rate >20: No Heart Rate >90: No Temp<36 C (96.8 F) or >38.3 C: No SBP <90 or MAP <65 mmHG: No New Acute Mental Status Change: No Is the patient on CPAP, BIPAP,: Yes Physician Orders Admit (07/10/25 23:58) Nitroglycerin Sublingual (Ntrostat Subli (07/11/25 00:00) Morphine Sulfate Injection (07/11/25 00:00) Stat Ekg For Chest Pain (07/10/25 23:58) Notify Of Changes From Base (07/10/25 23:58) Cnc Operator For 24 Hours (07/10/25 23:58) Emergency Dysrhythmia Protocol (07/10/25 23:58) Rhythm Strips Once Every Shift (07/10/25 23:58) Oxygen By Nasal Cannula (07/10/25 23:58) D5w/Sod Chl 0.45% (D5w 1/2ns) (07/11/25 00:30) * Cardiology Consult (07/11/25 00:18) Albuterol Medneb (Ventolin Medneb) (07/11/25 00:30) Basic Metabolic Panel (07/11/25 04:00) Ceftriaxone 1gm/50ml (Rocephin) (07/11/25 09:00) Complete Blood Count (07/12/25 04:00) Comprehensive Metabolic Panel (07/12/25 04:00) Condition: Unstable (07/11/25 00:18) Maintain Bed Rest (07/11/25 00:18) Sequential Compression Device (07/11/25 ) Sodium (07/11/25 12:00) Sodium (07/11/25 18:00) Transfer Orders (07/11/25 00:26) Ventilator Orders (07/11/25 00:36) Vital Signs Date Time Temp Pulse Resp B/P (MAP) Pulse Ox O2 Delivery O2 Flow Rate FiO2 07/11/25 04:36 60 21 104/41 (62) 97 30 07/11/25 04:36 97 Mechanical Ventilator+ 30 30 07/11/25 04:36 97 Mechanical Ventilator 07/11/25 02:01 60 17 98 Mechanical Ventilator+ 30 30 07/11/25 01:53 71 16 111/40 (63) 99 30 07/11/25 01:43 60 17 101/40 (60) 98 07/11/25 01:43 60 17 101/40 (60) 98 07/11/25 01:00 98.4 60 18 100/43 99 30 98.4 07/11/25 00:10 64 18 114/43 (66) 98 30 07/10/25 23:54 60 18 100/43 (62) 99 07/10/25 23:13 60 18 125/32 (63) 99 07/10/25 22:51 62 15 98 Trach Collar 10 100 100 07/10/25 22:43 60 14 111/39 (63) 100 07/10/25 22:30 60 18 127/31 (63) 98 35 07/10/25 22:00 70 122/40 (67) 100 07/10/25 21:45 62 18 122/40 (67) 07/10/25 21:30 60 18 120/40 (66) 100 07/10/25 21:15 60 18 121/29 (59) 100 Laboratory Tests Test 07/10/25 19:15 07/10/25 20:45 Lactic Acid Level 1.9 mmol/L (0.4-2.0) White Blood Count 7.2 10^3/uL (4.4-10.8) Medications Medications Dose Ordered Sig/Dayna Route Start Time Stop Time Status Last Admin Dose Admin Dextrose/Sodium Chloride 1,000 ml @ 85 mls/hr [id number] IV 07/11/25 00:30 07/11/25 03:00 85 MLS/HR Piperacillin Sod/ Tazobactam Sod 100 ml @ 100 mls/hr ONCE ONCE IV 07/10/25 20:45 07/10/25 21:44 DC 07/11/25 00:00 100 MLS/HR Sodium Chloride 1,000 ml @ 1,000 mls/hr Q1H ONCE IV 07/10/25 20:45 07/10/25 21:44 DC 07/10/25 20:30 1,000 MLS/HR Sodium Chloride 1,000 ml @ 1,000 mls/hr Q1H ONCE IVB 07/10/25 19:00 07/10/25 19:59 DC 07/10/25 19:36 1,000 MLS/HR Vancomycin HCl 250 ml @ 250 mls/hr ONCE ONCE IV 07/10/25 20:45 07/10/25 21:44 DC 07/10/25 21:02 250 MLS/HR Assessment/Plan Assessment/Plan Assessment Metabolic encephalopathy Hypernatremia Elevated troponin Plan Admit the patient to ICU to the hospitalist Continue Levophed Cardiology consultation Q.6 hours sodium checks Maintenance IV fluids Continue treatment per orders. Plan discussed with: Patient My Orders Orders - SUYAPA QUINTERO Procedure Category Date Status Time Admit ADMIT 07/10/25 Transmitted 23:58 Nitroglycerin PHA 07/11/25 In Process Sublingual (Ntrostat 00:00 Morphine Sulfate PHA 07/11/25 In Process Injection 00:00 Stat Ekg For Chest FEDERICO 07/10/25 In Process Pain 23:58 Notify Of Changes FEDERICO 07/10/25 In Process From Base 23:58 Cnc Operator For FEDERICO 07/10/25 In Process 24 Hours 23:58 Emergency Dysrhythmia FEDERICO 07/10/25 In Process Protocol 23:58 Rhythm Strips Once [facility] 07/10/25 In Process Every Shift 23:58 Oxygen By Nasal RT 07/10/25 Transmitted Cannula 23:58 D5w/Sod Chl 0.45% PHA 07/11/25 In Process (D5w 1/2ns) 00:30 * Cardiology Consult CONS 07/11/25 Transmitted 00:18 Albuterol Medneb PHA 07/11/25 In Process (Ventolin Medneb) 00:30 Basic Metabolic Panel LAB 07/11/25 In Process 04:00 Ceftriaxone 1gm/50ml PHA 07/11/25 In Process (Rocephin) 09:00 Complete Blood Count LAB 07/12/25 Verified 04:00 Comprehensive LAB 07/12/25 Verified Metabolic Panel 04:00 Condition: Unstable FEDERICO 07/11/25 In Process 00:18 Maintain Bed Rest FEDERICO 07/11/25 In Process 00:18 Sequential FEDERICO 07/11/25 In Process Compression Device Sodium LAB 07/11/25 Logged 12:00 Sodium LAB 07/11/25 Logged 18:00 Transfer Orders XFER 07/11/25 Transmitted 00:26 Date of Service: Jul 10, 2025 Billing Provider: SUYAPA QUINTERO Common Visit Codes: [id number] CARE 30-74 MIN SUYAPA QUINTERO Jul 11, 2025 05:11
[2025-07-11 05:30] LABS: Anion Gap 11 (5-15); Carbon Dioxide 29 mmol/L (20-31)
--- NOTE | 2025-07-11 07:31 | ED.PDOC ---
Was a procedure done? Was a procedure done?: Yes Sedation Sedation?: No Central Line Recorder of insertion practice: Gauge Maker Occupation of battery vent plug inserter: Attending Physician Indication: Hypotension, Volume resuscitation Room prepared for procedure: Yes Gauge Maker performed hand hygien: Yes Maximal sterile barrier precau: Mask/Eye shield, Sterile gown, Sterlie gloves, Large sterlie drape Skin Preparation: Chlorhexidine gluconate Skin preparation completely dr: Yes Insertion site: Right, Femoral Central line catheter type: [id number] dialysis Number of lumens: 3 Central line exchanged over a: Yes Antiseptic ointment applied to: Yes Post Assessment: Proper placement Informed consent obtained: No Risks/benefits/alt described: No KALA DYKES MD Jul 11, 2025 07:31
[2025-07-11] MEDS ORDERED: ENOXAPARIN SOD 40 MG/0.4 ML SYRINGE SC SCH (10:00)
--- NOTE | 2025-07-11 10:26 | DVHCONRES ---
Date Seen: Jul 11, 2025 Resident Creating Document: ELSA CARRILLO RESIDENT Referring Physician Ezra KIM History of Present Illness This is a 74-year-old male was was BIBA to the ER for the evaluation of altered level of consciousness. Patient is nonverbal, bed-bound since 01/2025. Per granddaughter at bedside, patient was on hospice and started deteriorating for the past week, became unresponsive, lethargic, fatigue, patient usually communicates with of alphabetic board, but he has not been doing that, also has been having productive cough with increasing secretions, bloody through trach collar. His oxygen requirement increased from 2 L to the maximum available. Family did not notice any fever or chills, diarrhea or constipation. Patient feeds through G-tube. On arrival to the ER, patient was afebrile, blood pressure 86/47 mmHg, 27 per minute, saturating 94 and his trach was connected to a vent. Sodium was noted to be elevated at 170. 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 Opening eyes to verbal commands and painful stimuli, otherwise not following commands. Lung sounds coarse and decreased. Abdomen normoactive. Mucous membranes dry. No pitting edema. Family requesting to be full code. Was on Levophed 2mcg earlier in the morning. Allergies: Coded Allergies: NO KNOWN ALLERGIES (Unverified , 01/19/25) Current Medications Current Medications Medications (Trade) Dose Ordered Sig/Dayna Route PRN Reason Start Time Stop Time Status Last Admin Norepinephrine Bitartrate 250 ml @ 3.75 mls/hr Q24H IV 07/10/25 20:45 Nitroglycerin (Ntrostat Sublingual) 0.4 mg Q5MINP PRN SL FOR CHEST PAIN 07/11/25 00:00 Morphine Sulfate 2 mg Q30M PRN IV FOR CHEST PAIN 07/11/25 00:00 Dextrose/Sodium Chloride 1,000 ml @ 85 mls/hr [id number] IV 07/11/25 00:30 07/11/25 03:00 Albuterol (Ventolin Medneb) 2.5 mg Q6HPRN PRN NEB SHORTNESS OF BREATH 07/11/25 00:30 07/11/25 10:06 DC Ceftriaxone Sodium 50 ml @ 100 mls/hr DAILY@09 IV 07/11/25 09:00 Ondansetron HCl (Zofran) 4 mg Q4HP PRN IV NAUSEA / VOMITING 07/11/25 00:30 07/11/25 00:46 DC Enoxaparin Sodium (Lovenox) 40 mg DAILY SC 07/11/25 10:00 07/11/25 00:46 DC Acetaminophen (Tylenol Tablet) 650 mg Q6HP PRN PO PAIN SCALE 1-3 OR TEMP>100.4 07/11/25 00:30 07/11/25 00:46 DC Albuterol (Ventolin Medneb) 2.5 mg Q4HR NEB 07/11/25 14:00 UNV Ipratropium Pingree (Atrovent Medneb) 0.5 mg Q4HR NEB 07/11/25 14:00 UNV Review of Systems Could not be obtained as patient is nonverbal Vital Signs Vital Signs Date Time Temp Pulse Resp B/P (MAP) Pulse Ox O2 Delivery O2 Flow Rate FiO2 07/11/25 09:40 68 8 104/44 (64) 100 30 07/11/25 06:01 Mechanical Ventilator+ 55 Trach Collar 07/11/25 02:01 98.4 98.4 Physical Exam Elderly male patient lying in the bed, mechanically ventilated via trach General: Well-built, afebrile, palor, mucosae are dry Cardiovascular: Regular S1 and S2. No murmurs, gallops or rubs. No JVD elevation. No pedal edema Respiratory: Decreased bilateral air entry, coarse crackles, mechanically ventilated with trach Abdomen: Soft, nontender, nondistended, normoactive bowel sounds, no rebound tenderness, no organomegaly, no masses Genitourinary: Navarro seen draining 50 cc of urine MSK/skin: Skin is dry and warm Neurological: Pupils are isocoric and reactive. Left-sided hemiparesis and hemiplegia Psych/Mental Status: A/Ox0 Labs/Diagnostic Data Labs Test 07/11/25 04:12 11/4/25 23:48 07/10/25 23:45 07/10/25 20:45 Range/Units Sodium Level 167 *H 136-145 mmol/L Potassium Level 4.0 3.5-5.1 mmol/L Chloride Level 127 H 98-107 mmol/L Carbon Dioxide Level 29 20-31 mmol/L Anion Gap 11 5-15 Blood Urea Nitrogen 38 #H 9-23 mg/dL Creatinine 1.03 0.700-1.30 mg/dL Glomerular Filtration Rate Calc 77 >90 mL/min BUN/Creatinine Ratio 36.9 H 10.0-20.0 Serum Glucose 112 H 74-106 mg/dL Hemoglobin A1c 6.1 H <5.7 % A1C Calcium Level 9.3 8.7-10.4 mg/dL Creatine Kinase 97 46-171 U/L Thyroid Stimulating Hormone (TSH) 4.33 0.55-4.78 uIU/mL Urine Color Yellow Yellow Urine Clarity Clear Clear Urine pH 6.5 5.0-9.0 Urine Specific [place] 1.027 1.001-1.035 Urine Protein Negative Negative Urine Ketones Negative Negative Urine Blood Negative Negative /uL Urine Nitrite Negative Negative Urine Bilirubin Negative Negative Urine Urobilinogen 2 H Negative mg/dL Urine Leukocyte Esterase Negative Negative /uL Urine RBC None seen 0 - 3 /hpf Urine Microscopic WBC 1 0-3 /HPF Urine Squamous Epithelial Cells Few <5 /hpf Urine Bacteria None seen None Seen /hpf Urine Hyaline Casts Few 0 - 2 /lpf Urine Glucose Normal Normal mg/dL Urine Opiates Screen Pos NEGATIVE Urine Fentanyl Screen Neg NEGATIVE Urine Barbiturates Screen Neg NEGATIVE Urine Phencyclidine Screen Neg NEGATIVE Urine Amphetamines Screen Neg NEGATIVE Urine Benzodiazepines Screen Neg NEGATIVE Urine Cocaine Screen Neg NEGATIVE Urine Cannabinoids Screen Neg NEGATIVE White Blood Count 7.2 4.4-10.8 10^3/uL Red Blood Count 3.82 L 4.5-5.90 10^6/uL Hemoglobin 10.7 L 13.5-17.5 g/dL Hematocrit 34.5 L 41.0-53.0 % Mean Corpuscular Volume 90.3 80.0-100.0 fL Mean Corpuscular Hemoglobin 28.0 28.0-32.0 pg Mean Corpuscular Hemoglobin Concent 31.0 L 32.0-36.0 g/dL Red Cell Distribution Width 18.3 H 11.8-14.3 % Platelet Count 68 L 140-450 10^3/uL Mean Platelet Volume 12.2 H 6.9-10.8 fL Neutrophils (%) (Auto) 76.7 37.0-80.0 % Lymphocytes (%) (Auto) 13.7 10.0-50.0 % Monocytes (%) (Auto) 7.5 0.0-12.0 % Eosinophils (%) (Auto) 1.9 0.0-7.0 % Basophils (%) (Auto) 0.2 0.0-2.0 % Neutrophils # (Auto) 5.5 1.6-8.6 10 ^3/uL Lymphocytes # (Auto) 1.0 0.4-5.4 10 ^3/uL Monocytes # (Auto) 0.5 0-1.3 10 ^3/uL Eosinophils # (Auto) 0.1 0-0.8 10 ^3/uL Basophils # (Auto) 0 0-0.2 10 ^3/uL Nucleated Red Blood Cells 0.1 % Platelet Estimate Decreased Large Platelets Few Anisocytosis (manual) Slight Test 07/10/25 19:22 07/10/25 19:15 Range/Units Blood Gas Specimen Type Arterial Blood Gas Sample Site Right radial Blood Gas Patient Temperature 37.0 Arterial Blood Date Drawn [id number] Arterial Blood pH 7.472 H 7.350-7.450 Arterial Blood Partial Pressure CO2 42.3 35.0-48.0 mmHg Arterial Blood Partial Pressure O2 402.6 *H 83.0-108.0 mmHg Arterial Blood HCO3 30.2 H 21.0-28.0 mmol/L Arterial Blood Oxygen Saturation 99.8 H 94.0-98.0 % Arterial Blood Base Excess 6.0 H -2.0-3.0 mmol/L Arterial Blood Oxyhemoglobin 98.7 H 94.0-98.0 % Arterial Blood Carboxyhemoglobin 0.6 0.5-1.5 % Arterial Blood Methemoglobin 0.5 0.0-1.5 % Shawn Test Modified Blood Gas Total Hemoglobin 13.30 L 13.5-17.5 g/dL Blood Gas Set Respiration Rate 18.0 Blood Gas Modality Vent - ac Blood Gas Spontaneous Rate 18 FiO2 % 100.0 Blood Gas Tidal Volume 500.0 Blood Gas Spontaneous Tidal Volume 582 Blood Gas Inspiratory Pressure 22.0 Blood Gas PEEP or CPAP 5.0 Bl Gas Inspiratory/Expiratory Ratio 1:2 Blood Gas Critical Value Read Back Yes Blood Gas Notified Whom katty [place] Blood Gas Notified Time [id number] Blood Gas Notified By Rt, michelle morales Prothrombin Time 11.4 9.3-11.8 sec Prothrombin Time INR 1.08 0.9-1.15 Activated Partial Thromboplast Time 24.6 24.5-34.5 SEC Lactic Acid Level 1.9 0.4-2.0 mmol/L Magnesium Level 2.7 H 1.6-2.6 mg/dL Total Bilirubin 0.2 0.2-1.0 mg/dL Aspartate Amino Transferase (AST) 157 H 13-40 U/L Alanine Aminotransferase (ALT) 363 H 7-40 U/L Alkaline Phosphatase 133 H 46-116 U/L Total Protein 6.4 5.7-8.2 g/dL Albumin 3.5 3.2-4.8 g/dL Plasma/Serum Blood Alcohol < 3.0 <10 mg/dL Assessment NSTEMI type 1 versus type 2 Underlying Afib / A flutter - ChadsVAsc 7 Congestive heart failure-unspecified History of aortic valve replacement Unspecified other valvular disorder Status post pacemaker placement Symptomatic hypernatremia likely dehydration Likely aspiration pneumonia CVA with residual left-sided weakness Bed-bound status Failure to thrive status post G-tube Prediabetes mellitus Former nicotine dependence EKG shows paced rhythm, saw waves resembling a flutter BNP 92 Troponins 450-460-440 Plan/Recommendation Elevated troponinemia is likely in the setting of systemic illness. Patient is unstable for any acute cardiological intervention at this time given the comorbidities. Medical management advised. Follow up with the echocardiogram Recommend fluid resuscitation given hyponatremia and elevated urine specific gravity, likely dehydration Hold anticoagulation given bloody secretions from trach, low platelets Continue aspirin 81 mg daily, resume Lipitor once LFTs downtrend Patient is currently off Levophed Duo nebs and antibiotics for pneumonia per primary team Keep Mag greater than 2, K greater than 4 Continue telemetry monitoring Continue Strict I&Os Drips: Off Levophed We will continue to follow up Plan discussed with patient's daughter, granddaughter at bedside in which all questions have been answered. Case discussed with Dr. Perdomo Plan discussed with: Daughter, Other (Granddaughter at the bedside, nurse Nik) Visit Coding Cardiology RES Date of Service: Jul 11, 2025 Billing Provider: DARRELL PERDOMO Sr., MD Cardiology Common Codes: CONSULT ONLY ELSA CARRILLO RESIDENT Jul 11, 2025 10:25
[2025-07-11 11:10] LABS: Triglycerides 108 mg/dL (< 150)
[2025-07-11 11:12] LABS: Cholesterol 105 mg/dL (< 200)
[2025-07-11 11:24] LABS: HDL Cholesterol 23 mg/dL (40-59)
--- NOTE | 2025-07-11 12:36 | DVHPN2 ---
Reviewed: H&P Changes from previous H/P or p: No Changes General: Per HPI Objective Vitals Vital Signs Date Time Temp Pulse Resp B/P (MAP) Pulse Ox O2 Delivery O2 Flow Rate FiO2 07/11/25 12:00 13 98 Mechanical Ventilator+ 55 30 Trach Collar 30 07/11/25 11:49 64 125/47 (73) 07/11/25 02:01 98.4 98.4 Intake/Output Intake and Output 07/11/25 07:00 Intake Total 2775 ml Output Total 300 ml Balance 2475 ml Intake IV Total 2775 ml Output Urine Total 300 ml Exam Gen: 74-year-old male in mild distress. Skin: Warm, dry, normal color and texture, no rash. HEENT: Normocephalic atraumatic, mucous membranes moist and pink. Neck: Cervical and supraclavicular nodes normal without enlargement, trachea is midline, thyroid gland is normal without masses. Pulmonary: Tracheostomy, diminished breath sounds Cardiac: Regular rate and rhythm. No murmur Abdomen: Soft, nontender, nondistended, bowel sounds present all 4 quadrants, no guarding, no rigidity, no organomegaly. Extremities: No cyanosis, clubbing, no edema Neuro: Grossly brainstem reflexes intact, unable to assess nerve 7 and 5, patient nonobstructive interview, reflexes present, in apparent left-sided deficits from prior stroke. Medications Current Medications Medications Dose Ordered Sig/Dayna Route Start Time Stop Time Status Last Admin Dose Admin Norepinephrine Bitartrate 250 ml @ 3.75 mls/hr Q24H IV 07/10/25 20:45 Nitroglycerin 0.4 mg Q5MINP PRN SL 07/11/25 00:00 Morphine Sulfate 2 mg Q30M PRN IV 07/11/25 00:00 Dextrose/Sodium Chloride 1,000 ml @ 85 mls/hr [id number] IV 07/11/25 00:30 07/11/25 03:00 85 MLS/HR Ceftriaxone Sodium 50 ml @ 100 mls/hr DAILY@09 IV 07/11/25 09:00 07/11/25 10:49 100 MLS/HR Albuterol 2.5 mg Q4HR NEB 07/11/25 14:00 Ipratropium [place] 0.5 mg Q4HR NEB 07/11/25 14:00 Aspirin 81 mg DAILY PO 07/12/25 10:00 Laboratory Results Laboratory Tests 07/10/25 20:45 07/11/25 04:12 Chemistry Test 07/10/25 19:15 07/11/25 04:12 Albumin 3.5 g/dL (3.2-4.8) Calcium Level 9.1 mg/dL (8.7-10.4) 9.3 mg/dL (8.7-10.4) Magnesium Level 2.7 mg/dL (1.6-2.6) H Total Protein 6.4 g/dL (5.7-8.2) Coagulation Test 07/10/25 19:15 Prothrombin Time 11.4 sec (9.3-11.8) Prothrombin Time INR 1.08 (0.9-1.15) Activated Partial Thromboplast Time 24.6 SEC (24.5-34.5) Lipid panel Test 07/11/25 04:12 Cholesterol Level 105 mg/dL (< 200) HDL Cholesterol 23 mg/dL (40-59) L Triglycerides Level 108 mg/dL (< 150) Cardiac Markers Test 07/11/25 04:12 B-Type Natriuretic Peptide 92.12 pg/mL (0-100) LFT Test 07/10/25 19:15 Alanine Aminotransferase (ALT) 363 U/L (7-40) H Alkaline Phosphatase 133 U/L (46-116) H Aspartate Amino Transferase (AST) 157 U/L (13-40) H Total Bilirubin 0.2 mg/dL (0.2-1.0) HgA1c, TSH Test 07/11/25 04:12 Hemoglobin A1c 6.1 % A1C (<5.7) H Thyroid Stimulating Hormone (TSH) 4.33 uIU/mL (0.55-4.78) Urinalysis Test 07/10/25 23:48 07/11/25 04:12 07/11/25 11:00 Urine Color Yellow (Yellow) Urine Clarity Clear (Clear) Urine pH 6.5 (5.0-9.0) Urine Specific [place] 1.027 (1.001-1.035) Urine Protein Negative (Negative) Urine Ketones Negative (Negative) Urine Blood Negative /uL (Negative) Urine Nitrite Negative (Negative) Urine Bilirubin Negative (Negative) Urine Urobilinogen 2 mg/dL (Negative) H Urine Leukocyte Esterase Negative /uL (Negative) Urine RBC None seen /hpf (0 - 3) Urine Microscopic WBC 1 /HPF (0-3) Urine Squamous Epithelial Cells Few /hpf (<5) Urine Bacteria None seen /hpf (None Seen) Urine Hyaline Casts Few /lpf (0 - 2) Urine Glucose Normal mg/dL (Normal) Urine Osmolality 826 mOsm/kg Urine Sodium Pending Blood Gas Results Test 07/10/25 19:22 Arterial Blood pH 7.472 (7.350-7.450) FiO2 % 100.0 Labs and/or images reviewed: Labs reviewed by me, Image(s) reviewed by me Assessment/Plan Assessment/Plan 74-year-old male presents for evaluation of altered mental status. Patient with a history of CVAs bed ridden and nonverbal. Patient noted by family members to be less alert over the past couple of days. so they brought him in for further evaluation. No family at bedside to provide further history. 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 Presenting with ALOC,. Patient is bedridden nonverbal. Opacities less alert. On initial eval labs showing hypernatremia, azotemia, troponins up to 400s. Urine concentrated 1.027. Thrombocytopenia 68, anemia 10.7, RDW high 18.3. Normocytic anemia. Cardiology consulted. Patient currently on Levophed, antibiotics ceftriaxone/doxycycline. Continuing aspirin 81, D5 half-normal at 85 cc,. Patient is having more productive cough through trach collar, respiratory source for infection possible. Patient does not respond to verbal or physical stimuli. Eyes open, brainstem reflexes intact,. We will start hydrocortisone 100 mg IV b.i.d. for 5 days,, patient is off Levophed, we will monitor for 12 hours in D OU before deescalating patient no other sources of infection of the respiratory, continues to be hospice criteria. Family has patient full code right now, appears that family may not understand the severity of patient's condition. 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 for 5 days Respiratory tree trach collar suction q.4h IV antibiotics ceftriaxone/doxycycline D OU Full code Plan discussed with: Patient Date of Service: Jul 11, 2025 Billing Provider: JAVID BLACKBURN MD Common Visit Codes: [id number] CARE 30-74 MIN JAVID BLACKBURN MD Jul 11, 2025 12:36
[2025-07-11 13:51] LABS: Albumin 3.3 g/dL (3.2-4.8); Alkaline Phosphatase 100 U/L (46-116); Anion Gap 11 (5-15); BUN/Creatinine Ratio 42.0 (10.0-20.0); Calcium 8.8 mg/dL (8.7-10.4); Carbon Dioxide 30 mmol/L (20-31); Potassium 3.7 mmol/L (3.5-5.1); Total Protein 6.3 g/dL (5.7-8.2)
[2025-07-11 13:52] LABS: Bilirubin, Total 0.3 mg/dL (0.2-1.0)
[2025-07-11 14:06] LABS: Alanine Aminotransferase 236 U/L (7-40); Blood Urea Nitrogen 42 mg/dL (9-23); Chloride 126 mmol/L (98-107); Glucose 148 mg/dL (74-106)
[2025-07-11 14:10] LABS: Sodium 167 mmol/L (136-145)
[2025-07-11] MEDS: DOXYCYCLINE 100MG/100ML 100 ML IV SCH (14:18)
[2025-07-11] MEDS: IPRATROPIUM BROM 0.5 MG/2.5ML INH SOL NEB SCH (14:43)
[2025-07-11] MEDS: ALBUTEROL SULF 2.5 MG/0.5ML(0.5%) NEB SOLN NEB SCH (14:43)
[2025-07-11] MEDS: FREE WATER GT SCH (15:45)
[2025-07-11] MEDS: D5W 5% 1,000 ML IV SCH (15:45)
[2025-07-11] MEDS: HYDROCORTISONE SOD SUCC 100 MG/2ML INJ VIAL IV SCH (22:37)
[2025-07-12] VITALS (14 sets, daily range): BP systolic 99–150; BP diastolic 43–60; PULSE 60–65; RESP 14–28; O2SAT 94–100
[2025-07-12 04:15] LABS: Albumin 3.3 g/dL (3.2-4.8); Alkaline Phosphatase 95 U/L (46-116); Anion Gap 11 (5-15); BUN/Creatinine Ratio 33.3 (10.0-20.0); Calcium 9.2 mg/dL (8.7-10.4); Carbon Dioxide 27 mmol/L (20-31); Potassium 3.8 mmol/L (3.5-5.1); Total Protein 6.4 g/dL (5.7-8.2)
[2025-07-12 04:16] LABS: Bilirubin, Total 0.5 mg/dL (0.2-1.0)
[2025-07-12 04:20] LABS: Hematocrit 35.2 % (41.0-53.0); Hemoglobin 11.3 g/dL (13.5-17.5); Mean Corpuscular Hemoglobin 28.6 pg (28.0-32.0); Mean Corpuscular Volume 89.1 fL (80.0-100.0); Nucleated Red Blood Cells % 0.2 %
[2025-07-12 04:24] LABS: Alanine Aminotransferase 193 U/L (7-40); Blood Urea Nitrogen 30 mg/dL (9-23); Chloride 119 mmol/L (98-107); Glucose 181 mg/dL (74-106); Sodium 157 mmol/L (136-145)
[2025-07-12 08:00] LABS: Base Excess 2.8 mmol/L (-2.0-3.0)
--- NOTE | 2025-07-12 08:53 | DVHPN2 ---
Progress Note Date Seen: Jul 12, 2025 Resident Creating Document: ELSA CARRILLO RESIDENT Medical Necessity Reason Pt with a Central, PICC or Fol: Yes The following are medically ne: Navarro Catheter Subjective Review of Systems This is a 74-year-old male was was BIBA to the ER for the evaluation of altered level of consciousness. Patient is nonverbal, bed-bound since 01/2025. Per granddaughter at bedside, patient was on hospice and started deteriorating for the past week, became unresponsive, lethargic, fatigue, patient usually communicates with of alphabetic board, but he has not been doing that, also has been having productive cough with increasing secretions, bloody through trach collar. His oxygen requirement increased from 2 L to the maximum available. Family did not notice any fever or chills, diarrhea or constipation. Patient feeds through G-tube. On arrival to the ER, patient was afebrile, blood pressure 86/47 mmHg, 27 per minute, saturating 94 and his trach was connected to a vent. Sodium was noted to be elevated at 170. 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 Opening eyes to verbal commands and painful stimuli, otherwise not following commands. Lung sounds coarse and decreased. Abdomen normoactive. Mucous membranes dry. No pitting edema. Family requesting to be full code. Was on Levophed 2mcg earlier in the morning. 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, nonverbal Objective vital signs Vital Sign Date Time Temp Pulse Resp B/P (MAP) Pulse Ox O2 Delivery O2 Flow Rate FiO2 07/12/25 07:15 65 20 132/53 (79) 98 07/12/25 04:02 30 07/11/25 19:30 97.7 97.7 07/11/25 19:30 Trach Collar 10 Total Intake and Output 11/01/2807/11/25 07/12/25 15:00 23:00 07:00 Intake Total 780 ml 1255 ml 545 ml Output Total 350 ml 300 ml Balance 780 ml 905 ml 245 ml medications Current Medications Medications Dose Ordered Sig/Dayna Route Start Time Stop Time Status Last Admin Dose Admin Norepinephrine Bitartrate 250 ml @ 3.75 mls/hr Q24H IV 07/10/25 20:45 Nitroglycerin 0.4 mg Q5MINP PRN SL 07/11/25 00:00 Morphine Sulfate 2 mg Q30M PRN IV 07/11/25 00:00 Ceftriaxone Sodium 50 ml @ 100 mls/hr DAILY@09 IV 07/11/25 09:00 07/11/25 10:49 100 MLS/HR Albuterol 2.5 mg Q4HR NEB 07/11/25 14:00 07/12/25 02:41 2.5 MG Ipratropium [place] 0.5 mg Q4HR NEB 07/11/25 14:00 07/12/25 02:42 0.5 MG Aspirin 81 mg DAILY PO 07/12/25 10:00 Doxycycline Hyclate 100 ml @ 50 mls/hr Q12H IV 07/11/25 12:45 07/11/25 14:21 50 MLS/HR Hydrocortisone Sodium Succinate 100 mg Q12HR IV 07/11/25 22:00 07/11/25 22:37 100 MG Purified Water 400 ml Q8H GT 07/11/25 15:45 07/11/25 23:45 400 ML Dextrose 1,000 ml @ 75 mls/hr [id number] IV 07/11/25 15:45 07/12/25 05:08 75 MLS/HR Examination Elderly male patient lying in the bed, mechanically ventilated via trach General: Well-built, afebrile, palor, mucosae are dry Cardiovascular: Regular S1 and S2. No murmurs, gallops or rubs. No JVD elevation. No pedal edema Respiratory: Decreased bilateral air entry, coarse crackles, mechanically ventilated with trach Abdomen: Soft, nontender, nondistended, normoactive bowel sounds, no rebound tenderness, no organomegaly, no masses Genitourinary: Navarro seen draining 50 cc of urine MSK/skin: Skin is dry and warm Neurological: Pupils are isocoric and reactive. Left-sided hemiparesis and hemiplegia Psych/Mental Status: A/Ox0 laboratory and microbiology Laboratory Tests 07/12/25 03:35 Test 07/12/25 03:35 Range/Units Serum Glucose 181 H 74-106 mg/dL Microbiology Date/Time Source Procedure Growth Status 07/10/25 19:15 Blood Blood Culture - Preliminary Resulted Labs and/or images reviewed: Labs reviewed by me, Image(s) reviewed by me Problem List/Assessment/Plan Problem List/Assessment/Plan NSTEMI type 1 versus type 2 Underlying Afib / A flutter - ChadsVAsc 7 Congestive heart failure-unspecified History of aortic valve replacement Unspecified other valvular disorder Status post pacemaker placement Symptomatic hypernatremia likely dehydration Likely aspiration pneumonia CVA with residual left-sided weakness Bed-bound status Failure to thrive status post G-tube Prediabetes mellitus Former nicotine dependence EKG shows paced rhythm, saw waves resembling a flutter BNP 92 Troponins [phone] Plan/Recommendation Urine output improving, Hyponatremia improving, overall condition slightly better. Elevated troponinemia is likely in the setting of systemic illness. Patient is unstable for any acute cardiological intervention at this time given the comorbidities. Medical management advised. Follow up with the echocardiogram Recommend fluid resuscitation given hyponatremia and elevated urine specific gravity, likely dehydration Platelets improving to 74, Hold anticoagulation given bloody secretions from trach, low platelets Continue aspirin 81 mg daily, resume Lipitor once LFTs downtrend Patient is currently off Levophed Duo nebs and antibiotics for pneumonia per primary team Keep Mag greater than 2, K greater than 4 Continue telemetry monitoring Continue Strict I&Os Drips: Off Levophed We will continue to follow up Plan discussed with patient's daughter, granddaughter at bedside in which all questions have been answered. Case discussed with Dr. Perdomo Plan discussed with: Other (nurse) My Orders My Orders Orders - ELSA CARRILLO Procedure Category Date Status Time Stool Occult Blood LAB 07/11/25 Logged 09:04 Urine Sodium LAB 07/11/25 Logged 09:04 Albuterol Medneb PHA 07/11/25 In Process (Ventolin Medneb) 14:00 Ipratropium Medneb PHA 07/11/25 In Process (Atrovent Medneb) 14:00 Aspirin Tablet PHA 07/12/25 In Process 10:00 Visit Coding Cardiology RES Date of Service: Jul 12, 2025 Billing Provider: DARRELL PERDOMO Sr., MD Cardiology Common Codes: [id number] HOSP CARE(ELSA Toussaint RESIDENT Jul 12, 2025 08:53
--- NOTE | 2025-07-12 10:31 | DVHPN2 ---
Reviewed: H&P Changes from previous H/P or p: No Changes General: Per HPI Objective Vitals Vital Signs Date Time Temp Pulse Resp B/P (MAP) Pulse Ox O2 Delivery O2 Flow Rate FiO2 07/12/25 09:43 60 24 126/50 (75) 98 30 07/12/25 07:15 Mechanical Ventilator+ 07/11/25 19:30 97.7 97.7 07/11/25 19:30 10 Intake/Output Intake and Output 07/12/25 07:00 Intake Total 2580 ml Output Total 650 ml Balance 1930 ml Intake IV Total 1980 ml Other 600 ml Output Urine Total 650 ml Exam Gen: 74-year-old male in mild distress. Skin: Warm, dry, normal color and texture, no rash. HEENT: Normocephalic atraumatic, mucous membranes moist and pink. Neck: Cervical and supraclavicular nodes normal without enlargement, trachea is midline, thyroid gland is normal without masses. Pulmonary: Tracheostomy, diminished breath sounds Cardiac: Regular rate and rhythm. No murmur Abdomen: Soft, nontender, nondistended, bowel sounds present all 4 quadrants, no guarding, no rigidity, no organomegaly. Extremities: No cyanosis, clubbing, no edema Neuro: Grossly brainstem reflexes intact, unable to assess nerve 7 and 5, patient nonobstructive interview, reflexes present, in apparent left-sided deficits from prior stroke. Medications Current Medications Medications Dose Ordered Sig/Dayna Route Start Time Stop Time Status Last Admin Dose Admin Norepinephrine Bitartrate 250 ml @ 3.75 mls/hr Q24H IV 07/10/25 20:45 Nitroglycerin 0.4 mg Q5MINP PRN SL 07/11/25 00:00 Morphine Sulfate 2 mg Q30M PRN IV 07/11/25 00:00 Ceftriaxone Sodium 50 ml @ 100 mls/hr DAILY@09 IV 07/11/25 09:00 07/12/25 09:34 100 MLS/HR Albuterol 2.5 mg Q4HR NEB 07/11/25 14:00 07/12/25 09:43 2.5 MG Ipratropium [place] 0.5 mg Q4HR NEB 07/11/25 14:00 07/12/25 09:43 0.5 MG Aspirin 81 mg DAILY PO 07/12/25 10:00 Doxycycline Hyclate 100 ml @ 50 mls/hr Q12H IV 07/11/25 12:45 07/11/25 14:21 50 MLS/HR Purified Water 400 ml Q8H GT 07/11/25 15:45 07/12/25 09:00 400 ML Dextrose 1,000 ml @ 75 mls/hr [id number] IV 07/11/25 15:45 07/12/25 05:08 75 MLS/HR Hydrocortisone Sodium Succinate 100 mg Q12HR IV 07/12/25 22:00 07/16/25 21:59 Laboratory Results Laboratory Tests 07/12/25 03:35 Chemistry Test 07/11/25 13:01 07/12/25 03:35 Albumin 3.3 g/dL (3.2-4.8) 3.3 g/dL (3.2-4.8) Calcium Level 8.8 mg/dL (8.7-10.4) 9.2 mg/dL (8.7-10.4) Total Protein 6.3 g/dL (5.7-8.2) 6.4 g/dL (5.7-8.2) LFT Test 07/11/25 13:01 07/12/25 03:35 Alanine Aminotransferase (ALT) 236 U/L (7-40) H 193 U/L (7-40) H Alkaline Phosphatase 100 U/L (46-116) 95 U/L (46-116) Aspartate Amino Transferase (AST) 61 U/L (13-40) H 42 U/L (13-40) H Total Bilirubin 0.3 mg/dL (0.2-1.0) 0.5 mg/dL (0.2-1.0) Urinalysis Test 07/10/25 23:48 07/11/25 04:12 07/11/25 11:00 Urine Color Yellow (Yellow) Urine Clarity Clear (Clear) Urine pH 6.5 (5.0-9.0) Urine Specific [place] 1.027 (1.001-1.035) Urine Protein Negative (Negative) Urine Ketones Negative (Negative) Urine Blood Negative /uL (Negative) Urine Nitrite Negative (Negative) Urine Bilirubin Negative (Negative) Urine Urobilinogen 2 mg/dL (Negative) H Urine Leukocyte Esterase Negative /uL (Negative) Urine RBC None seen /hpf (0 - 3) Urine Microscopic WBC 1 /HPF (0-3) Urine Squamous Epithelial Cells Few /hpf (<5) Urine Bacteria None seen /hpf (None Seen) Urine Hyaline Casts Few /lpf (0 - 2) Urine Glucose Normal mg/dL (Normal) Urine Osmolality 826 mOsm/kg Urine Sodium Pending Blood Gas Results Test 07/12/25 06:29 Arterial Blood pH 7.452 (7.350-7.450) FiO2 % 30.0 Microbiology Microbiology Date/Time Source Procedure Growth Status 07/10/25 19:15 Blood Blood Culture - Preliminary Resulted Labs and/or images reviewed: Labs reviewed by me, Image(s) reviewed by me Assessment/Plan Assessment/Plan 74-year-old male presents for evaluation of altered mental status. Patient with a history of CVAs bed ridden and nonverbal. Patient noted by family members to be less alert over the past couple of days. so they brought him in for further evaluation. No family at bedside to provide further history. 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 Presenting with ALOC,. Patient is bedridden nonverbal. Opacities less alert. On initial eval labs showing hypernatremia, azotemia, troponins up to 400s. Urine concentrated 1.027. Thrombocytopenia 68, anemia 10.7, RDW high 18.3. Normocytic anemia. Cardiology consulted. Patient currently on Levophed, antibiotics ceftriaxone/doxycycline. Continuing aspirin 81, D5 half-normal at 85 cc,. Patient is having more productive cough through trach collar, respiratory source for infection possible. Patient does not respond to verbal or physical stimuli. Eyes open, brainstem reflexes intact,. We will start hydrocortisone 100 mg IV b.i.d. for 5 days,, patient is off Levophed, we will monitor for 12 hours in D OU before deescalating patient no other sources of infection of the respiratory, continues to be hospice criteria. Family has patient full code right now, appears that family may not understand the severity of patient's condition. 07/12: Patient looks more awake. Hypernatremia improving, creatinine improving,. Patient was severely dehydrated. We will continue to give IV antibiotics ceftriaxone doxycycline. Patient is off vasopressors, on ventilator on trach collar SIMV, can deescalate care to tele. Continue D5W for hypernatremia. Hydrocortisone to stop in 4 days. Patient remains eligible for hospice, we will have to discuss with family. 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 for 5 days Respiratory tree trach collar suction q.4h IV antibiotics ceftriaxone/doxycycline D OU Full code Plan discussed with: Patient My Orders Orders - JAVID BLACKBURN MD Procedure Category Date Status Time Doxycycline PHA 07/11/25 In Process 100mg/100ml 12:45 Free Water PHA 07/11/25 In Process 15:45 D5w 5% (Dextrose 5%) PHA 07/11/25 In Process 15:45 Abg W/ Co-Ox RT 07/12/25 Logged 07:00 Hydrocortisone PHA 07/12/25 In Process Succinate Inj 22:00 Date of Service: Jul 12, 2025 Billing Provider: JAVID BLACKBURN MD Common Visit Codes: [id number] CARE 30-74 MIN JAVID BLACKBURN MD Jul 12, 2025 10:31
[2025-07-12] MEDS: HYDROCORTISONE SOD SUCC 100 MG/2ML INJ VIAL IV SCH (23:05)
[2025-07-13] VITALS (27 sets, daily range): BP systolic 96–120; BP diastolic 42–59; PULSE 57–80; RESP 10–25; TEMP 98.1–98.6; O2SAT 96–99
[2025-07-13 07:18] LABS: Hematocrit 34.7 % (41.0-53.0); Hemoglobin 11.1 g/dL (13.5-17.5); Mean Corpuscular Hemoglobin 28.0 pg (28.0-32.0); Mean Corpuscular Volume 87.7 fL (80.0-100.0); Nucleated Red Blood Cells % 0.1 %
[2025-07-13 07:34] LABS: Alkaline Phosphatase 85 U/L (46-116); Anion Gap 12 (5-15); BUN/Creatinine Ratio 32.5 (10.0-20.0); Carbon Dioxide 28 mmol/L (20-31); Potassium 3.6 mmol/L (3.5-5.1); Total Protein 5.8 g/dL (5.7-8.2)
[2025-07-13 07:35] LABS: Bilirubin, Total 0.4 mg/dL (0.2-1.0)
[2025-07-13 07:37] LABS: Alanine Aminotransferase 127 U/L (7-40); Albumin 3.1 g/dL (3.2-4.8); Blood Urea Nitrogen 26 mg/dL (9-23); Calcium 8.6 mg/dL (8.7-10.4); Chloride 112 mmol/L (98-107); Glucose 141 mg/dL (74-106); Sodium 152 mmol/L (136-145)
[2025-07-13] MEDS: POTASSIUM EFFERVESENT TAB 25 MEQ GT ONE (09:30)
--- NOTE | 2025-07-13 09:35 | DVHPN2 ---
Consult Progress Note Date Seen: Jul 13, 2025 Subjective Other Systems: No overnight cardiac events reported Objective vital signs Vital Sign Date Time Temp Pulse Resp B/P (MAP) Pulse Ox O2 Delivery O2 Flow Rate FiO2 07/13/25 08:38 80 10 97 30 07/13/25 05:00 98.1 98.1 07/12/25 09:45 Mechanical Ventilator+ 07/11/25 19:30 10 Total Intake and Output 07/12/25 07/12/25 07/13/25 15:00 23:00 07:00 Intake Total 212.5 ml 100 ml Output Total 625 ml Balance 212.5 ml -525 ml medications Current Medications Medications Dose Ordered Sig/Dayna Route Start Time Stop Time Status Last Admin Dose Admin Norepinephrine Bitartrate 250 ml @ 3.75 mls/hr Q24H IV 07/10/25 20:45 Nitroglycerin 0.4 mg Q5MINP PRN SL 07/11/25 00:00 Morphine Sulfate 2 mg Q30M PRN IV 07/11/25 00:00 Ceftriaxone Sodium 50 ml @ 100 mls/hr DAILY@09 IV 07/11/25 09:00 07/12/25 09:34 100 MLS/HR Albuterol 2.5 mg Q4HR NEB 07/11/25 14:00 07/13/25 05:53 2.5 MG Ipratropium [place] 0.5 mg Q4HR NEB 07/11/25 14:00 07/13/25 05:53 0.5 MG Aspirin 81 mg DAILY PO 07/12/25 10:00 Doxycycline Hyclate 100 ml @ 50 mls/hr Q12H IV 07/11/25 12:45 07/13/25 01:05 50 MLS/HR Purified Water 400 ml Q8H GT 07/11/25 15:45 07/12/25 23:45 400 ML Dextrose 1,000 ml @ 75 mls/hr [id number] IV 07/11/25 15:45 07/12/25 18:40 75 MLS/HR Hydrocortisone Sodium Succinate 100 mg Q12HR IV 07/12/25 22:00 07/16/25 21:59 07/12/25 23:05 100 MG Examination: GENERAL:Abnormal (Chronically ill), LUNGS:Abnormal (Tracheostomy tube in place with 30% FiO2), CVS:Normal (V-paced rhythm), NEURO:Abnormal laboratory and microbiology Laboratory Tests 07/13/25 04:51 Test 07/13/25 04:51 Range/Units Serum Glucose 141 H 74-106 mg/dL Problem List/Assessment/Plan Problem List/Assessment/Plan Symptomatic hypernatremia likely dehydration Possible aspiration pneumonia/UTI NSTEMI Type 2 secondary to above Atrial fibrillation/Atrial-flutter - [id number] Score7 Chronic compensated HFrEF History of aortic valve replacement Presence of permanent dual-chamber pacemaker ([employer]) CVA with residual left-sided weakness Failure to thrive status post G-tube Prediabetes mellitus Thrombocytopenia Former nicotine dependence Tracheostomy dependance Bed-bound status Recent hospice care * Transthoracic echocardiogram, pending reading. Preliminary LVEF <40% * 12-lead electrocardiogram revealed a paced rhythm with saw waves resembling atrial flutter * Troponin levels peaked at 839 ng/L. BNP 92 Plan (Dr. Hendricks) Preliminary transthoracic echocardiogram revealed a reduced LV function. Initiate GDMT for CHF as tolerated. Add mineralocorticoid with optimal BP and renal function. Replete electrolytes as necessary, potassium >4 and magnesium >2. Unable to initiate full anticoagulation given thrombocytopenia, initiate DOAC therapy when appropriate (per hospice paperwork on Eliquis). At high-risk for an acute CVA. Consider discontinuation of ASA. Unstable for any acute cardiological intervention at this time given the comorbidities. Medical management advised. Cardiac stable. Signing off at this time. Kindly call if any further recommendation needed. Thank you for allowing us to care for this patient. Critical care time: 30 min. This medical document was created using an electronic medical record system with voice recognition software and computerized dictation system. Although this document has been carefully reviewed, there might still be some phonetic and typographical errors. Occasional wrong-word or ``sound-alike substitutions may have occurred due to the inherent limitations of voice recognition software. These areas are purely typographical due to imperfections of the software programs and do not reflect any compromise in the patient's medical care. Please read the chart carefully and recognize, using context, where these substitutions have occurred. Plan discussed with: Other Dietary Evaluation Review Comments: Nutrition Recommendation: 1) EN Glucerna 1.2 @ 60ml/hr x 24hr (goal). TF at goal volume provides 1728 kcal (100%), 86 gm protein (100%), and 1159 ml free water. 2) Consider TPN/PN if NPO>7 days 3) Monitor NPO status, lab values, weight trend, and I/O Expected Outcomes/Goals: Intake to meet >75% estimated needs Lab values to improve FU 2-3 days Date of Service: Jul 13, 2025 Billing Provider: YOUNG REAGAN Cardiology Common Codes: [id number] CARE 30-74 MIN YOUNG REAGAN Jul 13, 2025 09:35
[2025-07-13] MEDS: METOPROLOL TARTRATE 25 MG TAB GT SCH (10:00)
[2025-07-13] MEDS: LISINOPRIL 5 MG TAB GT SCH (10:00)
[2025-07-13] MEDS ORDERED: EMPAGLIFLOZIN 10 MG TAB GT SCH (10:00)
--- NOTE | 2025-07-13 12:24 | DVHPN2 ---
Reviewed: H&P Changes from previous H/P or p: No Changes General: Per HPI Objective Vitals Vital Signs Date Time Temp Pulse Resp B/P (MAP) Pulse Ox O2 Delivery O2 Flow Rate FiO2 07/13/25 10:00 98 Mechanical Ventilator 3.0 07/13/25 10:00 30 30 07/13/25 09:35 80 24 07/13/25 09:00 98.6 98.6 Intake/Output Intake and Output 07/13/25 07:00 Intake Total 312.5 ml Output Total 625 ml Balance -312.5 ml Intake Oral 0 ml IV Total 312.5 ml Output Urine Total 625 ml # Bowel Movements 5 Exam Gen: 74-year-old male in mild distress. Skin: Warm, dry, normal color and texture, no rash. HEENT: Normocephalic atraumatic, mucous membranes moist and pink. Neck: Cervical and supraclavicular nodes normal without enlargement, trachea is midline, thyroid gland is normal without masses. Pulmonary: Tracheostomy, diminished breath sounds Cardiac: Regular rate and rhythm. No murmur Abdomen: Soft, nontender, nondistended, bowel sounds present all 4 quadrants, no guarding, no rigidity, no organomegaly. Extremities: No cyanosis, clubbing, no edema Neuro: Grossly brainstem reflexes intact, unable to assess nerve 7 and 5, patient nonobstructive interview, reflexes present, in apparent left-sided deficits from prior stroke. Medications Current Medications Medications Dose Ordered Sig/Dayna Route Start Time Stop Time Status Last Admin Dose Admin Nitroglycerin 0.4 mg Q5MINP PRN SL 07/11/25 00:00 Morphine Sulfate 2 mg Q30M PRN IV 07/11/25 00:00 Ceftriaxone Sodium 50 ml @ 100 mls/hr DAILY@09 IV 07/11/25 09:00 07/13/25 09:34 100 MLS/HR Albuterol 2.5 mg Q4HR NEB 07/11/25 14:00 07/13/25 09:34 2.5 MG Ipratropium [place] 0.5 mg Q4HR NEB 07/11/25 14:00 07/13/25 09:34 0.5 MG Aspirin 81 mg DAILY PO 07/12/25 10:00 Doxycycline Hyclate 100 ml @ 50 mls/hr Q12H IV 07/11/25 12:45 07/13/25 01:05 50 MLS/HR Purified Water 400 ml Q8H GT 07/11/25 15:45 07/13/25 07:45 400 ML Dextrose 1,000 ml @ 75 mls/hr [id number] IV 07/11/25 15:45 07/12/25 18:40 75 MLS/HR Hydrocortisone Sodium Succinate 100 mg Q12HR IV 07/12/25 22:00 07/16/25 21:59 07/13/25 09:34 100 MG Empaglifozin 10 mg DAILY GT 07/13/25 10:00 Metoprolol Tartrate 12.5 mg BID GT 07/13/25 10:00 Lisinopril 2.5 mg DAILY GT 07/13/25 10:00 Laboratory Results Laboratory Tests 07/13/25 04:51 Chemistry Test 07/13/25 04:51 Albumin 3.1 g/dL (3.2-4.8) L Calcium Level 8.6 mg/dL (8.7-10.4) L Total Protein 5.8 g/dL (5.7-8.2) LFT Test 07/13/25 04:51 Alanine Aminotransferase (ALT) 127 U/L (7-40) H Alkaline Phosphatase 85 U/L (46-116) Aspartate Amino Transferase (AST) 38 U/L (13-40) Total Bilirubin 0.4 mg/dL (0.2-1.0) Urinalysis Test 07/10/25 23:48 07/11/25 04:12 07/11/25 11:00 Urine Color Yellow (Yellow) Urine Clarity Clear (Clear) Urine pH 6.5 (5.0-9.0) Urine Specific [place] 1.027 (1.001-1.035) Urine Protein Negative (Negative) Urine Ketones Negative (Negative) Urine Blood Negative /uL (Negative) Urine Nitrite Negative (Negative) Urine Bilirubin Negative (Negative) Urine Urobilinogen 2 mg/dL (Negative) H Urine Leukocyte Esterase Negative /uL (Negative) Urine RBC None seen /hpf (0 - 3) Urine Microscopic WBC 1 /HPF (0-3) Urine Squamous Epithelial Cells Few /hpf (<5) Urine Bacteria None seen /hpf (None Seen) Urine Hyaline Casts Few /lpf (0 - 2) Urine Glucose Normal mg/dL (Normal) Urine Osmolality 826 mOsm/kg Urine Sodium Pending Microbiology Microbiology Date/Time Source Procedure Growth Status 07/10/25 19:15 Blood Blood Culture - Preliminary Resulted Labs and/or images reviewed: Labs reviewed by me, Image(s) reviewed by me Assessment/Plan Assessment/Plan 74-year-old male presents for evaluation of altered mental status. Patient with a history of CVAs bed ridden and nonverbal. Patient noted by family members to be less alert over the past couple of days. so they brought him in for further evaluation. No family at bedside to provide further history. 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 Presenting with ALOC,. Patient is bedridden nonverbal. Opacities less alert. On initial eval labs showing hypernatremia, azotemia, troponins up to 400s. Urine concentrated 1.027. Thrombocytopenia 68, anemia 10.7, RDW high 18.3. Normocytic anemia. Cardiology consulted. Patient currently on Levophed, antibiotics ceftriaxone/doxycycline. Continuing aspirin 81, D5 half-normal at 85 cc,. Patient is having more productive cough through trach collar, respiratory source for infection possible. Patient does not respond to verbal or physical stimuli. Eyes open, brainstem reflexes intact,. We will start hydrocortisone 100 mg IV b.i.d. for 5 days,, patient is off Levophed, we will monitor for 12 hours in D OU before deescalating patient no other sources of infection of the respiratory, continues to be hospice criteria. Family has patient full code right now, appears that family may not understand the severity of patient's condition. 07/12: Patient looks more awake. Hypernatremia improving, creatinine improving,. Patient was severely dehydrated. We will continue to give IV antibiotics ceftriaxone doxycycline. Patient is off vasopressors, on ventilator on trach collar SIMV, can deescalate care to tele. Continue D5W for hypernatremia. Hydrocortisone to stop in 4 days. Patient remains eligible for hospice, we will have to discuss with family. 07/13: on tele now. wound care is seeing today, treating DTI that were found upon admission , will continue woundcare recs and q2h turns. . HNa improving, cont d5w and free water 300 q8h. pneumonia improving and continue suction by RT atleast bid. continue mycomyst and iv abx. restart feeds glucerna with goal 20cc (or per refrigerated company driver), stop for residuals >300. will focus on completing iv abx therapy for likely source pulmonary. 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 for 5 days Respiratory tree trach collar suction q.4h IV antibiotics ceftriaxone/doxycycline D OU Full code Plan discussed with: Other My Orders Orders - JAVID BLACKBURN MD Procedure Category Date Status Time Code Status CODE 07/12/25 Transmitted 17:17 * Wound Consult CONS 07/13/25 Transmitted Date of Service: Jul 13, 2025 Billing Provider: JAVID BLACKBURN MD Common Visit Codes: [id number] INP/OBS CARE(HIGH) JAVID BLACKBURN MD Jul 13, 2025 12:24
[2025-07-14] VITALS (17 sets, daily range): BP systolic 94–117; BP diastolic 49–65; PULSE 57–67; RESP 11–25; TEMP 97.3–98.8; O2SAT 94–99
[2025-07-14 05:18] LABS: Hematocrit 29.2 % (41.0-53.0); Hemoglobin 9.7 g/dL (13.5-17.5); Mean Corpuscular Hemoglobin 28.7 pg (28.0-32.0); Mean Corpuscular Volume 86.8 fL (80.0-100.0); Nucleated Red Blood Cells % 0.1 %
[2025-07-14 05:38] LABS: Alkaline Phosphatase 73 U/L (46-116); BUN/Creatinine Ratio 23.1 (10.0-20.0); Bilirubin, Total 0.4 mg/dL (0.2-1.0); Blood Urea Nitrogen 18 mg/dL (9-23); Carbon Dioxide 27 mmol/L (20-31)
[2025-07-14 06:02] LABS: Alanine Aminotransferase 89 U/L (7-40); Albumin 2.9 g/dL (3.2-4.8); Calcium 8.2 mg/dL (8.7-10.4); Glucose 154 mg/dL (74-106); Total Protein 5.5 g/dL (5.7-8.2)
[2025-07-14 06:09] LABS: Anion Gap 9 (5-15); Sodium 145 mmol/L (136-145)
[2025-07-14 06:10] LABS: Chloride 109 mmol/L (98-107); Potassium 3.4 mmol/L (3.5-5.1)
--- NOTE | 2025-07-14 09:26 | DVHPN2 ---
Reviewed: H&P Changes from previous H/P or p: No Changes General: Per HPI Objective Vitals Vital Signs Date Time Temp Pulse Resp B/P (MAP) Pulse Ox O2 Delivery O2 Flow Rate FiO2 07/14/25 09:08 60 11 97 30 07/14/25 05:00 97.8 97.8 07/13/25 10:00 Mechanical Ventilator 3.0 Intake/Output Intake and Output 07/14/25 07:00 Intake Total 200 ml Output Total 850 ml Balance -650 ml Intake Oral 0 ml IV Total 200 ml Output Urine Total 850 ml # Bowel Movements 3 Exam Gen: 74-year-old male in mild distress. Skin: Warm, dry, normal color and texture, no rash. HEENT: Normocephalic atraumatic, mucous membranes moist and pink. Neck: Cervical and supraclavicular nodes normal without enlargement, trachea is midline, thyroid gland is normal without masses. Pulmonary: Tracheostomy, diminished breath sounds Cardiac: Regular rate and rhythm. No murmur Abdomen: Soft, nontender, nondistended, bowel sounds present all 4 quadrants, no guarding, no rigidity, no organomegaly. Extremities: No cyanosis, clubbing, no edema Neuro: Grossly brainstem reflexes intact, unable to assess nerve 7 and 5, patient nonobstructive interview, reflexes present, in apparent left-sided deficits from prior stroke. Medications Current Medications Medications Dose Ordered Sig/Dayna Route Start Time Stop Time Status Last Admin Dose Admin Nitroglycerin 0.4 mg Q5MINP PRN SL 07/11/25 00:00 Morphine Sulfate 2 mg Q30M PRN IV 07/11/25 00:00 Ceftriaxone Sodium 50 ml @ 100 mls/hr DAILY@09 IV 07/11/25 09:00 07/14/25 08:40 100 MLS/HR Albuterol 2.5 mg Q4HR NEB 07/11/25 14:00 07/14/25 09:07 2.5 MG Ipratropium [place] 0.5 mg Q4HR NEB 07/11/25 14:00 07/14/25 09:07 0.5 MG Aspirin 81 mg DAILY PO 07/12/25 10:00 07/14/25 08:40 81 MG Doxycycline Hyclate 100 ml @ 50 mls/hr Q12H IV 07/11/25 12:45 07/14/25 00:34 50 MLS/HR Purified Water 400 ml Q8H GT 07/11/25 15:45 07/14/25 09:00 400 ML Dextrose 1,000 ml @ 75 mls/hr [id number] IV 07/11/25 15:45 07/13/25 21:05 75 MLS/HR Hydrocortisone Sodium Succinate 100 mg Q12HR IV 07/12/25 22:00 07/16/25 21:59 07/14/25 08:41 100 MG Laboratory Results Laboratory Tests 07/14/25 05:08 Chemistry Test 07/14/25 05:08 Albumin 2.9 g/dL (3.2-4.8) L Calcium Level 8.2 mg/dL (8.7-10.4) L Total Protein 5.5 g/dL (5.7-8.2) L LFT Test 07/14/25 05:08 Alanine Aminotransferase (ALT) 89 U/L (7-40) H Alkaline Phosphatase 73 U/L (46-116) Aspartate Amino Transferase (AST) 27 U/L (13-40) Total Bilirubin 0.4 mg/dL (0.2-1.0) Urinalysis Test 07/10/25 23:48 07/11/25 04:12 Urine Color Yellow (Yellow) Urine Clarity Clear (Clear) Urine pH 6.5 (5.0-9.0) Urine Specific [place] 1.027 (1.001-1.035) Urine Protein Negative (Negative) Urine Ketones Negative (Negative) Urine Blood Negative /uL (Negative) Urine Nitrite Negative (Negative) Urine Bilirubin Negative (Negative) Urine Urobilinogen 2 mg/dL (Negative) H Urine Leukocyte Esterase Negative /uL (Negative) Urine RBC None seen /hpf (0 - 3) Urine Microscopic WBC 1 /HPF (0-3) Urine Squamous Epithelial Cells Few /hpf (<5) Urine Bacteria None seen /hpf (None Seen) Urine Hyaline Casts Few /lpf (0 - 2) Urine Glucose Normal mg/dL (Normal) Urine Osmolality 826 mOsm/kg Microbiology Microbiology Date/Time Source Procedure Growth Status 07/10/25 19:15 Blood Blood Culture - Final Staphylococcus epidermidis Complete Labs and/or images reviewed: Labs reviewed by me, Image(s) reviewed by me Assessment/Plan Assessment/Plan 74-year-old male presents for evaluation of altered mental status. Patient with a history of CVAs bed ridden and nonverbal. Patient noted by family members to be less alert over the past couple of days. so they brought him in for further evaluation. No family at bedside to provide further history. 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 Presenting with ALOC,. Patient is bedridden nonverbal. Opacities less alert. On initial eval labs showing hypernatremia, azotemia, troponins up to 400s. Urine concentrated 1.027. Thrombocytopenia 68, anemia 10.7, RDW high 18.3. Normocytic anemia. Cardiology consulted. Patient currently on Levophed, antibiotics ceftriaxone/doxycycline. Continuing aspirin 81, D5 half-normal at 85 cc,. Patient is having more productive cough through trach collar, respiratory source for infection possible. Patient does not respond to verbal or physical stimuli. Eyes open, brainstem reflexes intact,. We will start hydrocortisone 100 mg IV b.i.d. for 5 days,, patient is off Levophed, we will monitor for 12 hours in D OU before deescalating patient no other sources of infection of the respiratory, continues to be hospice criteria. Family has patient full code right now, appears that family may not understand the severity of patient's condition. 07/12: Patient looks more awake. Hypernatremia improving, creatinine improving,. Patient was severely dehydrated. We will continue to give IV antibiotics ceftriaxone doxycycline. Patient is off vasopressors, on ventilator on trach collar SIMV, can deescalate care to tele. Continue D5W for hypernatremia. Hydrocortisone to stop in 4 days. Patient remains eligible for hospice, we will have to discuss with family. 07/13: on tele now. wound care is seeing today, treating DTI that were found upon admission , will continue woundcare recs and q2h turns. . HNa improving, cont d5w and free water 300 q8h. pneumonia improving and continue suction by RT atleast bid. continue mycomyst and iv abx. restart feeds glucerna with goal 20cc (or per application assistant), stop for residuals >300. will focus on completing iv abx therapy for likely source pulmonary. 07/14: Continue wound care for sacral DTI, start Mucomyst b.i.d., tracheal suctioning by trach collar b.i.d., continuing IV antibiotics. Patient is looking much improved. Hypernatremia improved. Stop D5 W, continue free water 300 cc q.8, restarting feeds Vital high-protein per dietary recommendations. 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 for 5 days Respiratory tree trach collar suction q.4h IV antibiotics ceftriaxone/doxycycline D OU Full code Plan discussed with: Patient My Orders Orders - JAVID BLACKBURN MD Procedure Category Date Status Time Order Specialty FEDERICO 07/13/25 In Process Mattress 13:19 Cleanse Wound With FEDERICO 07/13/25 In Process Wound Clean 11:45 * Dietary Consult CONS 07/13/25 Transmitted 15:32 Date of Service: Jul 14, 2025 Billing Provider: JAVID BLACKBURN MD Common Visit Codes: [id number] INP/OBS CARE(HIGH) JAVID BLACKBURN MD Jul 14, 2025 09:25
[2025-07-14] MEDS: ACETYLCYSTEINE 10 %(100MG/ML) SOL 4ML NEB SCH (13:10)
[2025-07-14] MEDS: Vital High Protein 1liter Bottle GT SCH (18:48)
[2025-07-15] VITALS (21 sets, daily range): BP systolic 102–119; BP diastolic 51–80; PULSE 59–80; RESP 10–24; TEMP 97.6–99.1; O2SAT 95–100
[2025-07-15 06:04] LABS: Anion Gap 12 (5-15); Carbon Dioxide 27 mmol/L (20-31); Chloride 104 mmol/L (98-107); Sodium 143 mmol/L (136-145)
[2025-07-15 06:10] LABS: BUN/Creatinine Ratio 20.8 (10.0-20.0); Blood Urea Nitrogen 16 mg/dL (9-23)
[2025-07-15 06:11] LABS: Hematocrit 30.7 % (41.0-53.0); Hemoglobin 10.3 g/dL (13.5-17.5); Mean Corpuscular Hemoglobin 28.8 pg (28.0-32.0); Mean Corpuscular Volume 85.5 fL (80.0-100.0); Nucleated Red Blood Cells % 0.1 %
[2025-07-15 06:33] LABS: Calcium 8.5 mg/dL (8.7-10.4); Glucose 152 mg/dL (74-106); Potassium 3.1 mmol/L (3.5-5.1)
--- NOTE | 2025-07-15 13:29 | DVHPN2 ---
Reviewed: H&P Changes from previous H/P or p: No Changes General: Per HPI Objective Vitals Vital Signs Date Time Temp Pulse Resp B/P (MAP) Pulse Ox O2 Delivery O2 Flow Rate FiO2 07/15/25 12:40 61 11 98 30 07/15/25 05:00 98.5 98.5 07/14/25 20:00 Mechanical Ventilator+ 07/13/25 10:00 3.0 Intake/Output Intake and Output 07/15/25 07:00 Intake Total 300 ml Output Total 1650 ml Balance -1350 ml Intake Oral 0 ml IV Total 300 ml Output Urine Total 1650 ml # Bowel Movements 2 Exam Gen: 74-year-old male in mild distress. Skin: Warm, dry, normal color and texture, no rash. HEENT: Normocephalic atraumatic, mucous membranes moist and pink. Neck: Cervical and supraclavicular nodes normal without enlargement, trachea is midline, thyroid gland is normal without masses. Pulmonary: Tracheostomy, diminished breath sounds Cardiac: Regular rate and rhythm. No murmur Abdomen: Soft, nontender, nondistended, bowel sounds present all 4 quadrants, no guarding, no rigidity, no organomegaly. Extremities: No cyanosis, clubbing, no edema Neuro: Grossly brainstem reflexes intact, unable to assess nerve 7 and 5, patient nonobstructive interview, reflexes present, in apparent left-sided deficits from prior stroke. Medications Current Medications Medications Dose Ordered Sig/Dayna Route Start Time Stop Time Status Last Admin Dose Admin Nitroglycerin 0.4 mg Q5MINP PRN SL 07/11/25 00:00 Morphine Sulfate 2 mg Q30M PRN IV 07/11/25 00:00 Ceftriaxone Sodium 50 ml @ 100 mls/hr DAILY@09 IV 07/11/25 09:00 07/15/25 09:03 100 MLS/HR Albuterol 2.5 mg Q4HR NEB 07/11/25 14:00 07/15/25 10:13 2.5 MG Ipratropium [place] 0.5 mg Q4HR NEB 07/11/25 14:00 07/15/25 10:13 0.5 MG Aspirin 81 mg DAILY PO 07/12/25 10:00 07/14/25 08:40 81 MG Doxycycline Hyclate 100 ml @ 50 mls/hr Q12H IV 07/11/25 12:45 11/9/25 12:51 50 MLS/HR Purified Water 400 ml Q8H GT 07/11/25 15:45 07/15/25 07:45 400 ML Hydrocortisone Sodium Succinate 100 mg Q12HR IV 07/12/25 22:00 07/16/25 21:59 07/15/25 09:32 100 MG Enteral Nutritional Formula 1,000 ml 55ML/HR GT 07/14/25 14:00 07/14/25 18:48 1,000 ML Acetylcysteine 100 mg BID NEB 07/15/25 18:00 Laboratory Results Laboratory Tests 07/15/25 05:15 Chemistry Test 07/15/25 05:15 Calcium Level 8.5 mg/dL (8.7-10.4) L Urinalysis Test 07/10/25 23:48 07/11/25 04:12 Urine Color Yellow (Yellow) Urine Clarity Clear (Clear) Urine pH 6.5 (5.0-9.0) Urine Specific [place] 1.027 (1.001-1.035) Urine Protein Negative (Negative) Urine Ketones Negative (Negative) Urine Blood Negative /uL (Negative) Urine Nitrite Negative (Negative) Urine Bilirubin Negative (Negative) Urine Urobilinogen 2 mg/dL (Negative) H Urine Leukocyte Esterase Negative /uL (Negative) Urine RBC None seen /hpf (0 - 3) Urine Microscopic WBC 1 /HPF (0-3) Urine Squamous Epithelial Cells Few /hpf (<5) Urine Bacteria None seen /hpf (None Seen) Urine Hyaline Casts Few /lpf (0 - 2) Urine Glucose Normal mg/dL (Normal) Urine Osmolality 826 mOsm/kg Microbiology Microbiology Date/Time Source Procedure Growth Status 07/10/25 19:15 Blood Blood Culture - Final Staphylococcus epidermidis Complete Labs and/or images reviewed: Labs reviewed by me, Image(s) reviewed by me Assessment/Plan Assessment/Plan 74-year-old male presents for evaluation of altered mental status. Patient with a history of CVAs bed ridden and nonverbal. Patient noted by family members to be less alert over the past couple of days. so they brought him in for further evaluation. No family at bedside to provide further history. 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 Presenting with ALOC,. Patient is bedridden nonverbal. Opacities less alert. On initial eval labs showing hypernatremia, azotemia, troponins up to 400s. Urine concentrated 1.027. Thrombocytopenia 68, anemia 10.7, RDW high 18.3. Normocytic anemia. Cardiology consulted. Patient currently on Levophed, antibiotics ceftriaxone/doxycycline. Continuing aspirin 81, D5 half-normal at 85 cc,. Patient is having more productive cough through trach collar, respiratory source for infection possible. Patient does not respond to verbal or physical stimuli. Eyes open, brainstem reflexes intact,. We will start hydrocortisone 100 mg IV b.i.d. for 5 days,, patient is off Levophed, we will monitor for 12 hours in D OU before deescalating patient no other sources of infection of the respiratory, continues to be hospice criteria. Family has patient full code right now, appears that family may not understand the severity of patient's condition. 07/12: Patient looks more awake. Hypernatremia improving, creatinine improving,. Patient was severely dehydrated. We will continue to give IV antibiotics ceftriaxone doxycycline. Patient is off vasopressors, on ventilator on trach collar SIMV, can deescalate care to tele. Continue D5W for hypernatremia. Hydrocortisone to stop in 4 days. Patient remains eligible for hospice, we will have to discuss with family. 07/13: on tele now. wound care is seeing today, treating DTI that were found upon admission , will continue woundcare recs and q2h turns. . HNa improving, cont d5w and free water 300 q8h. pneumonia improving and continue suction by RT atleast bid. continue mycomyst and iv abx. restart feeds glucerna with goal 20cc (or per bowl topper), stop for residuals >300. will focus on completing iv abx therapy for likely source pulmonary. 07/14: Continue wound care for sacral DTI, start Mucomyst b.i.d., tracheal suctioning by trach collar b.i.d., continuing IV antibiotics. Patient is looking much improved. Hypernatremia improved. Stop D5 W, continue free water 300 cc q.8, restarting feeds Vital high-protein per dietary recommendations. 07/15: Continuing care as per yesterday plan. Patient continues to improve. Labs stable vital signs stable. Continues to be dependent on the current/home vent settings SIMV. Likely we will finish antibiotic therapy tomorrow possible discharge tomorrow. Have already discussed with family in the wants to return to hospice at discharge. Likely discharge tomorrow, we will communicate with family. 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 for 5 days Respiratory tree trach collar suction q.4h IV antibiotics ceftriaxone/doxycycline D OU Full code Plan discussed with: Patient My Orders Orders - JAVID BLACKBURN MD Procedure Category Date Status Time Nutritional PHA 07/14/25 In Process Supplements (Vital 14:00 Acetylcysteine PHA 07/15/25 In Process Inhalation 10% 18:00 Date of Service: Jul 15, 2025 Billing Provider: JAVID BLACKBURN MD Common Visit Codes: [id number] INP/OBS CARE(HIGH) JAVID BLACKBURN MD Jul 15, 2025 13:29
[2025-07-15] MEDS: ACETYLCYSTEINE 10 %(100MG/ML) SOL 4ML NEB SCH (18:38)
[2025-07-15] MEDS: POTASSIUM CHL 20MEQ/100ML 100 ML IV ONE (20:36)
[2025-07-16] VITALS (23 sets, daily range): BP systolic 93–120; BP diastolic 42–67; PULSE 59–66; RESP 12–29; TEMP 98.3–98.8; O2SAT 95–100
[2025-07-16 05:51] LABS: Chloride 105 mmol/L (98-107); Sodium 142 mmol/L (136-145)
[2025-07-16 05:52] LABS: Anion Gap 11 (5-15); Carbon Dioxide 26 mmol/L (20-31)
[2025-07-16 05:53] LABS: Calcium 8.6 mg/dL (8.7-10.4); Potassium 3.2 mmol/L (3.5-5.1)
[2025-07-16 05:57] LABS: BUN/Creatinine Ratio 22.9 (10.0-20.0); Blood Urea Nitrogen 16 mg/dL (9-23)
[2025-07-16 05:58] LABS: Glucose 121 mg/dL (74-106)
--- NOTE | 2025-07-16 09:56 | DVHPN2 ---
Reviewed: H&P Changes from previous H/P or p: No Changes General: Per HPI Objective Vitals Vital Signs Date Time Temp Pulse Resp B/P (MAP) Pulse Ox O2 Delivery O2 Flow Rate FiO2 07/16/25 09:39 60 13 95 30 07/16/25 09:00 98.8 98.8 07/15/25 18:39 Mechanical Ventilator+ Intake/Output Intake and Output 07/16/25 07:00 Intake Total 650 ml Output Total 900 ml Balance -250 ml Intake Oral 0 ml IV Total 150 ml Tube Feeding 500 ml Output Urine Total 900 ml Exam Gen: 74-year-old male in mild distress. Skin: Warm, dry, normal color and texture, no rash. HEENT: Normocephalic atraumatic, mucous membranes moist and pink. Neck: Cervical and supraclavicular nodes normal without enlargement, trachea is midline, thyroid gland is normal without masses. Pulmonary: Tracheostomy, diminished breath sounds Cardiac: Regular rate and rhythm. No murmur Abdomen: Soft, nontender, nondistended, bowel sounds present all 4 quadrants, no guarding, no rigidity, no organomegaly. Extremities: No cyanosis, clubbing, no edema Neuro: Grossly brainstem reflexes intact, unable to assess nerve 7 and 5, patient nonobstructive interview, reflexes present, in apparent left-sided deficits from prior stroke. Medications Current Medications Medications Dose Ordered Sig/Dayna Route Start Time Stop Time Status Last Admin Dose Admin Nitroglycerin 0.4 mg Q5MINP PRN SL 07/11/25 00:00 Morphine Sulfate 2 mg Q30M PRN IV 07/11/25 00:00 Ceftriaxone Sodium 50 ml @ 100 mls/hr DAILY@09 IV 07/11/25 09:00 07/16/25 09:22 100 MLS/HR Albuterol 2.5 mg Q4HR NEB 07/11/25 14:00 07/16/25 09:39 2.5 MG Ipratropium Sulphur 0.5 mg Q4HR NEB 07/11/25 14:00 07/16/25 09:39 0.5 MG Aspirin 81 mg DAILY PO 07/12/25 10:00 07/14/25 08:40 81 MG Doxycycline Hyclate 100 ml @ 50 mls/hr Q12H IV 07/11/25 12:45 07/16/25 00:59 50 MLS/HR Purified Water 400 ml Q8H GT 07/11/25 15:45 07/16/25 07:45 400 ML Hydrocortisone Sodium Succinate 100 mg Q12HR IV 07/12/25 22:00 07/16/25 21:59 07/16/25 09:23 100 MG Enteral Nutritional Formula 1,000 ml 55ML/HR GT 07/14/25 14:00 07/16/25 01:58 1,000 ML Acetylcysteine 100 mg BID NEB 07/15/25 18:00 07/16/25 06:59 100 MG Laboratory Results Laboratory Tests 07/15/25 05:15 07/16/25 04:44 Chemistry Test 07/16/25 04:44 Calcium Level 8.6 mg/dL (8.7-10.4) L Urinalysis Test 07/10/25 23:48 07/11/25 04:12 Urine Color Yellow (Yellow) Urine Clarity Clear (Clear) Urine pH 6.5 (5.0-9.0) Urine Specific [place] 1.027 (1.001-1.035) Urine Protein Negative (Negative) Urine Ketones Negative (Negative) Urine Blood Negative /uL (Negative) Urine Nitrite Negative (Negative) Urine Bilirubin Negative (Negative) Urine Urobilinogen 2 mg/dL (Negative) H Urine Leukocyte Esterase Negative /uL (Negative) Urine RBC None seen /hpf (0 - 3) Urine Microscopic WBC 1 /HPF (0-3) Urine Squamous Epithelial Cells Few /hpf (<5) Urine Bacteria None seen /hpf (None Seen) Urine Hyaline Casts Few /lpf (0 - 2) Urine Glucose Normal mg/dL (Normal) Urine Osmolality 826 mOsm/kg Microbiology Microbiology Date/Time Source Procedure Growth Status 07/10/25 19:15 Blood Blood Culture - Final Staphylococcus epidermidis Complete Labs and/or images reviewed: Labs reviewed by me, Image(s) reviewed by me Assessment/Plan Assessment/Plan 74-year-old male presents for evaluation of altered mental status. Patient with a history of CVAs bed ridden and nonverbal. Patient noted by family members to be less alert over the past couple of days. so they brought him in for further evaluation. No family at bedside to provide further history. 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 Presenting with ALOC,. Patient is bedridden nonverbal. Opacities less alert. On initial eval labs showing hypernatremia, azotemia, troponins up to 400s. Urine concentrated 1.027. Thrombocytopenia 68, anemia 10.7, RDW high 18.3. Normocytic anemia. Cardiology consulted. Patient currently on Levophed, antibiotics ceftriaxone/doxycycline. Continuing aspirin 81, D5 half-normal at 85 cc,. Patient is having more productive cough through trach collar, respiratory source for infection possible. Patient does not respond to verbal or physical stimuli. Eyes open, brainstem reflexes intact,. We will start hydrocortisone 100 mg IV b.i.d. for 5 days,, patient is off Levophed, we will monitor for 12 hours in D OU before deescalating patient no other sources of infection of the respiratory, continues to be hospice criteria. Family has patient full code right now, appears that family may not understand the severity of patient's condition. 07/12: Patient looks more awake. Hypernatremia improving, creatinine improving,. Patient was severely dehydrated. We will continue to give IV antibiotics ceftriaxone doxycycline. Patient is off vasopressors, on ventilator on trach collar SIMV, can deescalate care to tele. Continue D5W for hypernatremia. Hydrocortisone to stop in 4 days. Patient remains eligible for hospice, we will have to discuss with family. 07/13: on tele now. wound care is seeing today, treating DTI that were found upon admission , will continue woundcare recs and q2h turns. . HNa improving, cont d5w and free water 300 q8h. pneumonia improving and continue suction by RT atleast bid. continue mycomyst and iv abx. restart feeds glucerna with goal 20cc (or per senior treasury analyst), stop for residuals >300. will focus on completing iv abx therapy for likely source pulmonary. 07/14: Continue wound care for sacral DTI, start Mucomyst b.i.d., tracheal suctioning by trach collar b.i.d., continuing IV antibiotics. Patient is looking much improved. Hypernatremia improved. Stop D5 W, continue free water 300 cc q.8, restarting feeds Vital high-protein per dietary recommendations. 07/15: Continuing care as per yesterday plan. Patient continues to improve. Labs stable vital signs stable. Continues to be dependent on the current/home vent settings SIMV. Likely we will finish antibiotic therapy tomorrow possible discharge tomorrow. Have already discussed with family in the wants to return to hospice at discharge. Likely discharge tomorrow, we will communicate with family. 07/16: Considering to re-evaluate patient's need for ventilator on the trach collar. We will discuss with family duration of trach, duration of vent dependence, and if patient has ever been tried weaning trial/LTAC weaning trial of vent dependence. Otherwise continue present management Diagnosis: Sepsis with septic shock , requiring vasopressor support Pneumonia, aspiration pneumonia possible , Gram-negative/Gram-positive possible Acute, toxic metabolic encephalopathy Thrombocytopenia Anemia , normocytic Hypernatremia Failure to thrive Pressure ulcer, DTI, stage1-2, POA CVA left weakness January 2025, failure to thrive with PEG tube,, hypertension, AVR 2021, pacemaker 2021 Plan: Aspirin 81, D5W 75 cc hour Holding any DVT prophylaxis Continue other home medications 400 cc free water q.8h D OU status, close monitoring Levophed, maintain map more than 65 Hydrocortisone 100 IV b.i.d. for 5 days Respiratory tree trach collar suction q.4h IV antibiotics ceftriaxone/doxycycline D OU Full code Plan discussed with: Patient Date of Service: Jul 16, 2025 Billing Provider: JAVID BLACKBURN MD Common Visit Codes: [id number] INP/OBS CARE(HIGH) JAVID BLACKBURN MD Jul 16, 2025 09:56
--- NOTE | 2025-07-16 11:08 | DVHSR ---
APPROVED REPORT EXAM: Two-dimensional and M-mode echocardiogram with Doppler and color Doppler. Blood Pressure: 84/40 mmHg INDICATION EF RISK FACTORS Height: 67, Weight: 185 DIMENSIONS LVDd 4.6 (3.8-5.7cm) LA (2D) 3.7 (1.9-4.0cm) Aortic Root (2.0-3.7cm) LVDs 3.9 (2.5-4.0cm) LA (MM) (1.9-4.0cm) Aortic Cusp Exc (1.5-2.0cm) EF (%) 32.0 (55-70%) Rt. Atrium 4.2 (1.9-4.0cm) Asc. Aorta cm Mitral Valve Mitral Mitral Stenosis E wave 0.91m/s MV Mean GR. mmHg A wave m/s MV Peak GR. 31mmHg E/A ratio 0.0 2D MVA cm2 Aortic Valve Aortic Valve Aortic Stenosis V1 1.21m/s AO Mean GR. 19mmHg V2 3.07m/s AO Peak GR. 38mmHg AI P 1/2 Time 630.38ms Tricuspid Valve TR Velocity 2.27m/s RVSP 30mmHg Other Information Technically limited study due to tracheostomy. Conclusion lvef 30% pacing lead in RV moderate , at least, mean gradient of 20 mmhg, cannot rule out low flow at least mild eccentric aortic regurg that is anteriorly directed
[2025-07-17] VITALS (19 sets, daily range): BP systolic 113–130; BP diastolic 50–78; PULSE 56–84; RESP 11–32; TEMP 97.6–98.6; O2SAT 92–100
[2025-07-17 06:28] LABS: Anion Gap 9 (5-15); Carbon Dioxide 29 mmol/L (20-31); Chloride 106 mmol/L (98-107); Sodium 144 mmol/L (136-145)
[2025-07-17 06:34] LABS: BUN/Creatinine Ratio 26.5 (10.0-20.0); Blood Urea Nitrogen 18 mg/dL (9-23)
[2025-07-17 06:35] LABS: Calcium 8.6 mg/dL (8.7-10.4); Glucose 114 mg/dL (74-106); Potassium 2.9 mmol/L (3.5-5.1)
[2025-07-17] MEDS: POTASSIUM EFFERVESENT TAB 25 MEQ PEG ONE (08:38)
[2025-07-17 10:57] LABS: Potassium 3.8 mmol/L (3.5-5.1)
[2025-07-17 11:02] LABS: Magnesium 1.8 mg/dL (1.6-2.6)
--- NOTE | 2025-07-17 15:40 | DVHPN2 ---
Reviewed: H&P Changes from previous H/P or p: No Changes General: Per HPI Objective Vitals Vital Signs Date Time Temp Pulse Resp B/P (MAP) Pulse Ox O2 Delivery O2 Flow Rate FiO2 07/17/25 14:39 60 24 92 30 07/17/25 13:18 98.2 98.2 07/16/25 10:00 Mechanical Ventilator 15.0 Intake/Output Intake and Output 07/17/25 07:00 Intake Total 1350 ml Output Total 1090 ml Balance 260 ml Intake Oral 0 ml IV Total 350 ml Tube Feeding 1000 ml Output Urine Total 1090 ml Exam Gen: 74-year-old male in mild distress. Skin: Warm, dry, normal color and texture, no rash. HEENT: Normocephalic atraumatic, mucous membranes moist and pink. Neck: Cervical and supraclavicular nodes normal without enlargement, trachea is midline, thyroid gland is normal without masses. Pulmonary: Tracheostomy, diminished breath sounds Cardiac: Regular rate and rhythm. No murmur Abdomen: Soft, nontender, nondistended, bowel sounds present all 4 quadrants, no guarding, no rigidity, no organomegaly. Extremities: No cyanosis, clubbing, no edema Neuro: Grossly brainstem reflexes intact, unable to assess nerve 7 and 5, patient nonobstructive interview, reflexes present, in apparent left-sided deficits from prior stroke. Medications Current Medications Medications Dose Ordered Sig/Dayna Route Start Time Stop Time Status Last Admin Dose Admin Nitroglycerin 0.4 mg Q5MINP PRN SL 07/11/25 00:00 Morphine Sulfate 2 mg Q30M PRN IV 07/11/25 00:00 Ceftriaxone Sodium 50 ml @ 100 mls/hr DAILY@09 IV 07/11/25 09:00 07/17/25 08:37 100 MLS/HR Albuterol 2.5 mg Q4HR NEB 07/11/25 14:00 07/17/25 14:39 2.5 MG Ipratropium Mobile 0.5 mg Q4HR NEB 07/11/25 14:00 07/17/25 14:39 0.5 MG Aspirin 81 mg DAILY PO 07/12/25 10:00 07/14/25 08:40 81 MG Doxycycline Hyclate 100 ml @ 50 mls/hr Q12H IV 07/11/25 12:45 07/17/25 13:54 50 MLS/HR Purified Water 400 ml Q8H GT 07/11/25 15:45 07/17/25 15:16 400 ML Enteral Nutritional Formula 1,000 ml 55ML/HR GT 07/14/25 14:00 07/17/25 00:02 1,000 ML Acetylcysteine 100 mg BID NEB 07/15/25 18:00 07/17/25 05:58 100 MG Laboratory Results Laboratory Tests 07/15/25 05:15 07/17/25 04:36 07/17/25 09:25 Chemistry Test 07/17/25 04:36 07/17/25 09:25 Calcium Level 8.6 mg/dL (8.7-10.4) L Magnesium Level 1.8 mg/dL (1.6-2.6) Urinalysis Test 07/10/25 23:48 07/11/25 04:12 Urine Color Yellow (Yellow) Urine Clarity Clear (Clear) Urine pH 6.5 (5.0-9.0) Urine Specific [place] 1.027 (1.001-1.035) Urine Protein Negative (Negative) Urine Ketones Negative (Negative) Urine Blood Negative /uL (Negative) Urine Nitrite Negative (Negative) Urine Bilirubin Negative (Negative) Urine Urobilinogen 2 mg/dL (Negative) H Urine Leukocyte Esterase Negative /uL (Negative) Urine RBC None seen /hpf (0 - 3) Urine Microscopic WBC 1 /HPF (0-3) Urine Squamous Epithelial Cells Few /hpf (<5) Urine Bacteria None seen /hpf (None Seen) Urine Hyaline Casts Few /lpf (0 - 2) Urine Glucose Normal mg/dL (Normal) Urine Osmolality 826 mOsm/kg Microbiology Microbiology Date/Time Source Procedure Growth Status 07/10/25 19:15 Blood Blood Culture - Final Staphylococcus epidermidis Complete Labs and/or images reviewed: Labs reviewed by me, Image(s) reviewed by me Assessment/Plan Assessment/Plan 74-year-old male presents for evaluation of altered mental status. Patient with a history of CVAs bed ridden and nonverbal. Patient noted by family members to be less alert over the past couple of days. so they brought him in for further evaluation. No family at bedside to provide further history. 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 Presenting with ALOC,. Patient is bedridden nonverbal. Opacities less alert. On initial eval labs showing hypernatremia, azotemia, troponins up to 400s. Urine concentrated 1.027. Thrombocytopenia 68, anemia 10.7, RDW high 18.3. Normocytic anemia. Cardiology consulted. Patient currently on Levophed, antibiotics ceftriaxone/doxycycline. Continuing aspirin 81, D5 half-normal at 85 cc,. Patient is having more productive cough through trach collar, respiratory source for infection possible. Patient does not respond to verbal or physical stimuli. Eyes open, brainstem reflexes intact,. We will start hydrocortisone 100 mg IV b.i.d. for 5 days,, patient is off Levophed, we will monitor for 12 hours in D OU before deescalating patient no other sources of infection of the respiratory, continues to be hospice criteria. Family has patient full code right now, appears that family may not understand the severity of patient's condition. 07/12: Patient looks more awake. Hypernatremia improving, creatinine improving,. Patient was severely dehydrated. We will continue to give IV antibiotics ceftriaxone doxycycline. Patient is off vasopressors, on ventilator on trach collar SIMV, can deescalate care to tele. Continue D5W for hypernatremia. Hydrocortisone to stop in 4 days. Patient remains eligible for hospice, we will have to discuss with family. 07/13: on tele now. wound care is seeing today, treating DTI that were found upon admission , will continue woundcare recs and q2h turns. . HNa improving, cont d5w and free water 300 q8h. pneumonia improving and continue suction by RT atleast bid. continue mycomyst and iv abx. restart feeds glucerna with goal 20cc (or per recruitment director), stop for residuals >300. will focus on completing iv abx therapy for likely source pulmonary. 07/14: Continue wound care for sacral DTI, start Mucomyst b.i.d., tracheal suctioning by trach collar b.i.d., continuing IV antibiotics. Patient is looking much improved. Hypernatremia improved. Stop D5 W, continue free water 300 cc q.8, restarting feeds Vital high-protein per dietary recommendations. 07/15: Continuing care as per yesterday plan. Patient continues to improve. Labs stable vital signs stable. Continues to be dependent on the current/home vent settings SIMV. Likely we will finish antibiotic therapy tomorrow possible discharge tomorrow. Have already discussed with family in the wants to return to hospice at discharge. Likely discharge tomorrow, we will communicate with family. 07/16: Considering to re-evaluate patient's need for ventilator on the trach collar. We will discuss with family duration of trach, duration of vent dependence, and if patient has ever been tried weaning trial/LTAC weaning trial of vent dependence. Otherwise continue present management 07/17: Pulmonology onboard RT aware CPAP trial today. Plan to hopefully wean off ventilator trach collar trial today. 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 for 5 days Respiratory tree trach collar suction q.4h IV antibiotics ceftriaxone/doxycycline D OU Full code Plan discussed with: Patient, Other My Orders Orders - JAVID BLACKBURN MD Procedure Category Date Status Time Cpap Trial For Am ORDERS 07/17/25 Transmitted 09:33 *Consult CONS 07/17/25 Transmitted 11:15 Date of Service: Jul 17, 2025 Billing Provider: JAVID BLACKBURN MD Common Visit Codes: [id number] DISCH DAY >30min JAVID BLACKBURN MD Jul 17, 2025 15:39
--- NOTE | 2025-07-17 23:16 | DVHINCON2 ---
Date of service: Jul 17, [address] Timoteo [facility] Reason for Consultation Acute hypoxic respiratory failure requiring mechanical ventilator, sepsis due to pneumonia. History of Present Illness A 74-year-old man with past medical history of CVA (bedridden, nonverbal) and hypertension who presented to the ED on 07/11/25 for evaluation of altered mental status. Per family, patient was on hospice and started deteriorating for the past week, became unresponsive, lethargic, increased fatigue. Patient usually communicates with use of alphabetic board, but he has not been doing that. He also has been having productive cough with increasing secretions, bloody through trach collar. His oxygen requirement increased from 2 L to the maximum available. Family did not notice any fever or chills, diarrhea or constipation. Patient gets feedings through G-tube. On arrival to the ER, patient was afebrile, blood pressure 86/47 mmHg, 27 per minute, saturating 94, and his trach was connected to a vent. Sodium was noted to be elevated at 170. Patient was admitted for further care. Pulmonary consultation is requested for evaluation and management of acute hypoxic respiratory failure requiring mechanical ventilator and sepsis due to pneumonia. Review of Systems: Unable to obtain d/t intubated status. 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 Medications: Reviewed. Allergies: No known drug allergies. Family History: No family history of premature CAD. No family history of lung disorders. Social History: Former smoker. No alcohol or illicit drug use. Family History: Patient reports no known family medical history. Allergies: Coded Allergies: NO KNOWN ALLERGIES (Unverified , 01/19/25) Vital Signs Vital Signs Date Time Temp Pulse Resp B/P (MAP) Pulse Ox O2 Delivery O2 Flow Rate FiO2 07/17/25 22:23 60 15 98 30 07/17/25 21:00 98.6 98.6 07/17/25 10:00 Mechanical Ventilator 07/16/25 10:00 15.0 Physical Exam Gen.: Patient lying in bed in medical ICU. On mechanical ventilator. S/p Trach Head: Normocephalic, atraumatic. Eyes: PERRLA. Ears: Normal external anatomy. Throat: Endotracheal tube and orogastric tube in place. Neck: Trach in place. Chest: Transmitted breath sounds bilaterally. Decreased air entry bilaterally. No wheezing. Bibasilar crackles. Cardiovascular: Positive S1, positive S2. Regular rate and rhythm. Abdomen: Positive bowel sounds in all 4 quadrants. Soft, nontender, nondistended. : Navarro in place. Normal external genitalia. Rectal: Deferred. Skin: Warm, dry. Intact. Extremities: 2+ radial pulses bilaterally. No lower extremity edema. Neuro: Awake, alert. Labs/Diagnostic Data Labs Test 07/17/25 09:25 07/17/25 04:36 07/15/25 05:15 07/14/25 05:08 Range/Units Potassium Level 3.8 3.5-5.1 mmol/L Magnesium Level 1.8 1.6-2.6 mg/dL Sodium Level 144 136-145 mmol/L Chloride Level 106 98-107 mmol/L Carbon Dioxide Level 29 20-31 mmol/L Anion Gap 9 5-15 Blood Urea Nitrogen 18 9-23 mg/dL Creatinine 0.68 L 0.700-1.30 mg/dL Glomerular Filtration Rate Calc 99 >90 mL/min BUN/Creatinine Ratio 26.5 H 10.0-20.0 Serum Glucose 114 H 74-106 mg/dL Calcium Level 8.6 L 8.7-10.4 mg/dL White Blood Count 8.6 # 4.4-10.8 10^3/uL Red Blood Count 3.60 L 4.5-5.90 10^6/uL Hemoglobin 10.3 L 13.5-17.5 g/dL Hematocrit 30.7 L 41.0-53.0 % Mean Corpuscular Volume 85.5 80.0-100.0 fL Mean Corpuscular Hemoglobin 28.8 28.0-32.0 pg Mean Corpuscular Hemoglobin Concent 33.7 32.0-36.0 g/dL Red Cell Distribution Width 16.4 H 11.8-14.3 % Platelet Count 80 L 140-450 10^3/uL Mean Platelet Volume 10.9 H 6.9-10.8 fL Neutrophils (%) (Auto) 85.7 H 37.0-80.0 % Lymphocytes (%) (Auto) 9.4 L 10.0-50.0 % Monocytes (%) (Auto) 4.8 0.0-12.0 % Eosinophils (%) (Auto) 0.0 0.0-7.0 % Basophils (%) (Auto) 0.1 0.0-2.0 % Neutrophils # (Auto) 7.3 1.6-8.6 10 ^3/uL Lymphocytes # (Auto) 0.8 0.4-5.4 10 ^3/uL Monocytes # (Auto) 0.4 0-1.3 10 ^3/uL Eosinophils # (Auto) 0 0-0.8 10 ^3/uL Basophils # (Auto) 0 0-0.2 10 ^3/uL Nucleated Red Blood Cells 0.1 % Total Bilirubin 0.4 0.2-1.0 mg/dL Aspartate Amino Transferase (AST) 27 13-40 U/L Alanine Aminotransferase (ALT) 89 H 7-40 U/L Alkaline Phosphatase 73 46-116 U/L Total Protein 5.5 L 5.7-8.2 g/dL Albumin 2.9 L 3.2-4.8 g/dL Test 07/12/25 06:29 07/11/25 22:42 07/11/25 04:12 07/10/25 23:48 Range/Units Blood Gas Specimen Type Arterial Blood Gas Sample Site Right radial Blood Gas Patient Temperature 37.0 Arterial Blood Date Drawn [id number] Arterial Blood pH 7.452 H 7.350-7.450 Arterial Blood Partial Pressure CO2 39.4 35.0-48.0 mmHg Arterial Blood Partial Pressure O2 117.3 H 83.0-108.0 mmHg Arterial Blood HCO3 26.9 21.0-28.0 mmol/L Arterial Blood Oxygen Saturation 98.3 H 94.0-98.0 % Arterial Blood Base Excess 2.8 -2.0-3.0 mmol/L Arterial Blood Oxyhemoglobin 96.8 94.0-98.0 % Arterial Blood Carboxyhemoglobin 1.1 0.5-1.5 % Arterial Blood Methemoglobin 0.4 0.0-1.5 % Shawn Test Modified Blood Gas Total Hemoglobin 12.70 L 13.5-17.5 g/dL Blood Gas Set Respiration Rate 6.0 Blood Gas Modality Vent - simv FiO2 % 30.0 Blood Gas Tidal Volume 570.0 Blood Gas Pressure Support 10 Blood Gas PEEP or CPAP 6.0 POC Glucose 137 H 70-106 mg/dl Urine Osmolality 826 mOsm/kg Hemoglobin A1c 6.1 H <5.7 % A1C Serum Osmolality 356 H 278-298 mOsm/kg Creatine Kinase 97 46-171 U/L Troponin I High Sensitivity 591 *H </=54 ng/L B-Type Natriuretic Peptide 92.12 0-100 pg/mL Triglycerides Level 108 < 150 mg/dL Cholesterol Level 105 < 200 mg/dL LDL Cholesterol 64 < 100 mg/dL HDL Cholesterol 23 L 40-59 mg/dL Thyroid Stimulating Hormone (TSH) 4.33 0.55-4.78 uIU/mL Urine Color Yellow Yellow Urine Clarity Clear Clear Urine pH 6.5 5.0-9.0 Urine Specific [place] 1.027 1.001-1.035 Urine Protein Negative Negative Urine Ketones Negative Negative Urine Blood Negative Negative /uL Urine Nitrite Negative Negative Urine Bilirubin Negative Negative Urine Urobilinogen 2 H Negative mg/dL Urine Leukocyte Esterase Negative Negative /uL Urine RBC None seen 0 - 3 /hpf Urine Microscopic WBC 1 0-3 /HPF Urine Squamous Epithelial Cells Few <5 /hpf Urine Bacteria None seen None Seen /hpf Urine Hyaline Casts Few 0 - 2 /lpf Urine Glucose Normal Normal mg/dL Test 07/10/25 23:45 07/10/25 20:45 07/10/25 19:22 07/10/25 19:15 Range/Units Urine Opiates Screen Pos NEGATIVE Urine Fentanyl Screen Neg NEGATIVE Urine Barbiturates Screen Neg NEGATIVE Urine Phencyclidine Screen Neg NEGATIVE Urine Amphetamines Screen Neg NEGATIVE Urine Benzodiazepines Screen Neg NEGATIVE Urine Cocaine Screen Neg NEGATIVE Urine Cannabinoids Screen Neg NEGATIVE Platelet Estimate Decreased Large Platelets Few Anisocytosis (manual) Slight Blood Gas Spontaneous Rate 18 Blood Gas Spontaneous Tidal Volume 582 Blood Gas Inspiratory Pressure 22.0 Bl Gas Inspiratory/Expiratory Ratio 1:2 Blood Gas Critical Value Read Back Yes Blood Gas Notified Whom katty [place] Blood Gas Notified Time [id number] Blood Gas Notified By Rtmichelle Prothrombin Time 11.4 9.3-11.8 sec Prothrombin Time INR 1.08 0.9-1.15 Activated Partial Thromboplast Time 24.6 24.5-34.5 SEC Lactic Acid Level 1.9 0.4-2.0 mmol/L Plasma/Serum Blood Alcohol < 3.0 <10 mg/dL Microbiology Date/Time Source Procedure Growth Status 07/10/25 19:15 Blood Blood Culture - Final Staphylococcus epidermidis Complete Assessment Impression: Acute hypoxic respiratory failure On mechanical ventilator S/p tracheostomy Sepsis 2/2 pneumonia Pneumonia, likely GNR Hypokalemia Hx of nicotine dependence Obesity, BMI 32.1 Plan: On mechanical ventilator. On SIMV mode; home vent settings. S/p tracheostomy, on trach collar On Medivent. Discussion with family on duration of vent dependence/LTAC-weaning trial off vent. Trach care CPAP trial today. Possible wean off ventilator, trach collar trial today. Recommend daily CPAP trials OK to increase PS to max 20 cmH2O to achieve tidal volume 400-500 mL. Continue antibiotics. Continue bronchodilators Pressors as necessary for hemodynamic support Titrate to keep mean arterial pressure greater than 65 mmHg. Monitor renal function Monitor electrolytes. Supplement as necessary. Monitor potassium d/t hypokalemia Monitor ins and outs. Maintain euvolemia. Wound care. DVT prophylaxis - SCDs. Prognosis: Poor given patient's multiple co-morbidities. Condition: Critical Rest of plan per hospitalist and other consultants. A total of 35 minutes of critical care time was spent reviewing the patient record, examining the patient, making a diagnostic and therapeutic plan, discussing this plan with the medical personnel, following up on diagnostic studies and following the patient for clinical stability excluding any and all procedures. At least 50% of this time was spent in direct, [id number] contact. Thank you, Dr. Mahmood, for allowing me to participate in this patient's care. Further recommendations will depend on the patient's clinical course. Please do not hesitate to contact me if you have any questions or concerns. This medical document was created using an electronic medical record system with [employer] dictation system. Although these documentations are being carefully reviewed, there may still be some phonetic and typographical changes. The errors are purely typographical, due to imperfection on the software progr am, and do not reflect any compromise in the patient's medical care. Plan discussed with: Other (EDA Flores/Dr. Mahmood) Visit Coding Pulmonary Billing Provider: NICHOLAS CONNELLY MD Date of Service if different f: Jul 17, 2025 Common Visit Codes: [id number] INP/OBS CARE (HIGH), [id number] CARE 30- 74 MIN NICHOLAS CONNELLY MD Jul 17, 2025 23:16
[2025-07-18] VITALS (22 sets, daily range): BP systolic 112–122; BP diastolic 42–62; PULSE 56–69; RESP 12–34; TEMP 98–99.4; O2SAT 90–98
[2025-07-18 09:56] LABS: Hematocrit 32.6 % (41.0-53.0); Hemoglobin 10.8 g/dL (13.5-17.5); Mean Corpuscular Hemoglobin 28.7 pg (28.0-32.0); Mean Corpuscular Volume 86.8 fL (80.0-100.0); Nucleated Red Blood Cells % 0.0 %
[2025-07-18 10:17] LABS: Alkaline Phosphatase 83 U/L (46-116); Anion Gap 11 (5-15); BUN/Creatinine Ratio 25.7 (10.0-20.0); Blood Urea Nitrogen 18 mg/dL (9-23); Carbon Dioxide 28 mmol/L (20-31); Chloride 104 mmol/L (98-107); Potassium 3.7 mmol/L (3.5-5.1); Sodium 143 mmol/L (136-145)
[2025-07-18 10:23] LABS: Alanine Aminotransferase 51 U/L (7-40); Albumin 3.0 g/dL (3.2-4.8); Calcium 8.5 mg/dL (8.7-10.4); Glucose 134 mg/dL (74-106); Total Protein 5.6 g/dL (5.7-8.2)
[2025-07-18 10:24] LABS: Bilirubin, Total 0.4 mg/dL (0.2-1.0)
--- NOTE | 2025-07-18 14:45 | DVHPN2 ---
Reviewed: H&P Changes from previous H/P or p: No Changes General: Per HPI Objective Vitals Vital Signs Date Time Temp Pulse Resp B/P (MAP) Pulse Ox O2 Delivery O2 Flow Rate FiO2 07/18/25 13:48 60 24 95 30 07/18/25 12:43 98.0 98.0 07/18/25 10:24 Nasal Cannula 2.0 Intake/Output Intake and Output 07/18/25 07:00 Intake Total 750 ml Output Total 1300 ml Balance -550 ml Intake Oral 0 ml IV Total 250 ml Tube Feeding 500 ml Output Urine Total 1300 ml Exam Gen: 74-year-old male in mild distress. Skin: Warm, dry, normal color and texture, no rash. HEENT: Normocephalic atraumatic, mucous membranes moist and pink. Neck: Cervical and supraclavicular nodes normal without enlargement, trachea is midline, thyroid gland is normal without masses. Pulmonary: Tracheostomy, diminished breath sounds Cardiac: Regular rate and rhythm. No murmur Abdomen: Soft, nontender, nondistended, bowel sounds present all 4 quadrants, no guarding, no rigidity, no organomegaly. Extremities: No cyanosis, clubbing, no edema Neuro: Grossly brainstem reflexes intact, unable to assess nerve 7 and 5, patient nonobstructive interview, reflexes present, in apparent left-sided deficits from prior stroke. Medications Current Medications Medications Dose Ordered Sig/Dayna Route Start Time Stop Time Status Last Admin Dose Admin Nitroglycerin 0.4 mg Q5MINP PRN SL 07/11/25 00:00 Morphine Sulfate 2 mg Q30M PRN IV 07/11/25 00:00 Ceftriaxone Sodium 50 ml @ 100 mls/hr DAILY@09 IV 07/11/25 09:00 07/18/25 09:41 100 MLS/HR Albuterol 2.5 mg Q4HR NEB 07/11/25 14:00 07/18/25 13:47 2.5 MG Ipratropium [place] 0.5 mg Q4HR NEB 07/11/25 14:00 07/18/25 13:47 0.5 MG Aspirin 81 mg DAILY PO 07/12/25 10:00 07/14/25 08:40 81 MG Doxycycline Hyclate 100 ml @ 50 mls/hr Q12H IV 07/11/25 12:45 07/18/25 12:33 50 MLS/HR Purified Water 400 ml Q8H GT 07/11/25 15:45 07/18/25 08:45 400 ML Enteral Nutritional Formula 1,000 ml 55ML/HR GT 07/14/25 14:00 07/17/25 19:40 1,000 ML Acetylcysteine 100 mg BID NEB 07/15/25 18:00 07/18/25 06:00 100 MG Laboratory Results Laboratory Tests 07/18/25 09:30 Chemistry Test 07/18/25 09:30 Albumin 3.0 g/dL (3.2-4.8) L Calcium Level 8.5 mg/dL (8.7-10.4) L Total Protein 5.6 g/dL (5.7-8.2) L LFT Test 07/18/25 09:30 Alanine Aminotransferase (ALT) 51 U/L (7-40) H Alkaline Phosphatase 83 U/L (46-116) Aspartate Amino Transferase (AST) 20 U/L (13-40) Total Bilirubin 0.4 mg/dL (0.2-1.0) Urinalysis Test 07/10/25 23:48 07/11/25 04:12 Urine Color Yellow (Yellow) Urine Clarity Clear (Clear) Urine pH 6.5 (5.0-9.0) Urine Specific [place] 1.027 (1.001-1.035) Urine Protein Negative (Negative) Urine Ketones Negative (Negative) Urine Blood Negative /uL (Negative) Urine Nitrite Negative (Negative) Urine Bilirubin Negative (Negative) Urine Urobilinogen 2 mg/dL (Negative) H Urine Leukocyte Esterase Negative /uL (Negative) Urine RBC None seen /hpf (0 - 3) Urine Microscopic WBC 1 /HPF (0-3) Urine Squamous Epithelial Cells Few /hpf (<5) Urine Bacteria None seen /hpf (None Seen) Urine Hyaline Casts Few /lpf (0 - 2) Urine Glucose Normal mg/dL (Normal) Urine Osmolality 826 mOsm/kg Microbiology Microbiology Date/Time Source Procedure Growth Status 07/10/25 19:15 Blood Blood Culture - Final Staphylococcus epidermidis Complete Labs and/or images reviewed: Labs reviewed by me, Image(s) reviewed by me Assessment/Plan Assessment/Plan 74-year-old male presents for evaluation of altered mental status. Patient with a history of CVAs bed ridden and nonverbal. Patient noted by family members to be less alert over the past couple of days. so they brought him in for further evaluation. No family at bedside to provide further history. 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 Presenting with ALOC,. Patient is bedridden nonverbal. Opacities less alert. On initial eval labs showing hypernatremia, azotemia, troponins up to 400s. Urine concentrated 1.027. Thrombocytopenia 68, anemia 10.7, RDW high 18.3. Normocytic anemia. Cardiology consulted. Patient currently on Levophed, antibiotics ceftriaxone/doxycycline. Continuing aspirin 81, D5 half-normal at 85 cc,. Patient is having more productive cough through trach collar, respiratory source for infection possible. Patient does not respond to verbal or physical stimuli. Eyes open, brainstem reflexes intact,. We will start hydrocortisone 100 mg IV b.i.d. for 5 days,, patient is off Levophed, we will monitor for 12 hours in D OU before deescalating patient no other sources of infection of the respiratory, continues to be hospice criteria. Family has patient full code right now, appears that family may not understand the severity of patient's condition. 07/12: Patient looks more awake. Hypernatremia improving, creatinine improving,. Patient was severely dehydrated. We will continue to give IV antibiotics ceftriaxone doxycycline. Patient is off vasopressors, on ventilator on trach collar SIMV, can deescalate care to tele. Continue D5W for hypernatremia. Hydrocortisone to stop in 4 days. Patient remains eligible for hospice, we will have to discuss with family. 07/13: on tele now. wound care is seeing today, treating DTI that were found upon admission , will continue woundcare recs and q2h turns. . HNa improving, cont d5w and free water 300 q8h. pneumonia improving and continue suction by RT atleast bid. continue mycomyst and iv abx. restart feeds glucerna with goal 20cc (or per java grails developer), stop for residuals >300. will focus on completing iv abx therapy for likely source pulmonary. 07/14: Continue wound care for sacral DTI, start Mucomyst b.i.d., tracheal suctioning by trach collar b.i.d., continuing IV antibiotics. Patient is looking much improved. Hypernatremia improved. Stop D5 W, continue free water 300 cc q.8, restarting feeds Vital high-protein per dietary recommendations. 07/15: Continuing care as per yesterday plan. Patient continues to improve. Labs stable vital signs stable. Continues to be dependent on the current/home vent settings SIMV. Likely we will finish antibiotic therapy tomorrow possible discharge tomorrow. Have already discussed with family in the wants to return to hospice at discharge. Likely discharge tomorrow, we will communicate with family. 07/16: Considering to re-evaluate patient's need for ventilator on the trach collar. We will discuss with family duration of trach, duration of vent dependence, and if patient has ever been tried weaning trial/LTAC weaning trial of vent dependence. Otherwise continue present management 07/17: Pulmonology onboard RT aware CPAP trial today. Plan to hopefully wean off ventilator trach collar trial today. 07/18: Yesterday tried weaning trach collar trial, patient became tachypneic significantly,. Continues to have significant secretions from tracheal suctioned. Continuing treatment for complicated pneumonia with IV antibiotics. Pulmonology consulted and following to assess for weaning potential. Diagnosis: Sepsis with septic shock , requiring vasopressor support Pneumonia, aspiration pneumonia possible , Gram-negative/Gram-positive possible , complicated with chronic tracheostomy, ventilator dependent Acute, toxic metabolic encephalopathy Thrombocytopenia Anemia , normocytic Hypernatremia Failure to thrive Pressure ulcer, DTI, stage1-2, POA CVA left weakness January 2025, failure to thrive with PEG tube,, hypertension, AVR 2021, pacemaker 2021 Plan: Aspirin 81, D5W 75 cc hour Holding any DVT prophylaxis Continue other home medications 400 cc free water q.8h D OU status, close monitoring Levophed, maintain map more than 65 Hydrocortisone 100 IV b.i.d. for 5 days Respiratory tree trach collar suction q.4h IV antibiotics ceftriaxone/doxycycline D OU Full code Plan discussed with: Patient My Orders Orders - JAVID BLACKBURN MD Procedure Category Date Status Time Basic Metabolic Panel LAB 07/19/25 Verified 04:00 Date of Service: Jul 18, 2025 Billing Provider: JAVID BLACKBURN MD Common Visit Codes: [id number] INP/OBS CARE(HIGH) JAVID BLACKBURN MD Jul 18, 2025 14:45
--- NOTE | 2025-07-18 23:47 | DVHPN2 ---
Subjective [facility] DOS: 07/18/2025 Patient seen and examined at bedside. S/p trach, on mechanical ventilator. Overnight events reviewed. Reviewed: H&P Changes from previous H/P or p: No Changes General: Per HPI Objective Vitals Vital Signs Date Time Temp Pulse Resp B/P (MAP) Pulse Ox O2 Delivery O2 Flow Rate FiO2 07/18/25 22:04 62 34 98 30 07/18/25 16:48 98.2 98.2 07/18/25 10:24 Nasal Cannula 2.0 Intake/Output Intake and Output 07/18/25 07:00 Intake Total 750 ml Output Total 1300 ml Balance -550 ml Intake Oral 0 ml IV Total 250 ml Tube Feeding 500 ml Output Urine Total 1300 ml Exam Gen.: Patient lying in bed in medical ICU. On mechanical ventilator. S/p Trach Head: Normocephalic, atraumatic. Eyes: PERRLA. Ears: Normal external anatomy. Throat: Endotracheal tube and orogastric tube in place. Neck: Trach in place. Chest: Transmitted breath sounds bilaterally. Decreased air entry bilaterally. No wheezing. Bibasilar crackles. Cardiovascular: Positive S1, positive S2. Regular rate and rhythm. Abdomen: Positive bowel sounds in all 4 quadrants. Soft, nontender, nondistended. : Navarro in place. Normal external genitalia. Rectal: Deferred. Skin: Warm, dry. Intact. Extremities: 2+ radial pulses bilaterally. No lower extremity edema. Neuro: Awake, alert. Medications Current Medications Medications Dose Ordered Sig/Dayna Route Start Time Stop Time Status Last Admin Dose Admin Nitroglycerin 0.4 mg Q5MINP PRN SL 07/11/25 00:00 Morphine Sulfate 2 mg Q30M PRN IV 07/11/25 00:00 Ceftriaxone Sodium 50 ml @ 100 mls/hr DAILY@09 IV 07/11/25 09:00 07/18/25 09:41 100 MLS/HR Albuterol 2.5 mg Q4HR NEB 07/11/25 14:00 07/18/25 22:04 2.5 MG Ipratropium [place] 0.5 mg Q4HR NEB 07/11/25 14:00 07/18/25 22:04 0.5 MG Aspirin 81 mg DAILY PO 07/12/25 10:00 07/14/25 08:40 81 MG Doxycycline Hyclate 100 ml @ 50 mls/hr Q12H IV 07/11/25 12:45 07/18/25 12:33 50 MLS/HR Purified Water 400 ml Q8H GT 07/11/25 15:45 07/18/25 15:20 400 ML Enteral Nutritional Formula 1,000 ml 55ML/HR GT 07/14/25 14:00 07/17/25 19:40 1,000 ML Acetylcysteine 100 mg BID NEB 07/15/25 18:00 07/18/25 22:04 100 MG Laboratory Results Laboratory Tests 07/18/25 09:30 Chemistry Test 07/18/25 09:30 Albumin 3.0 g/dL (3.2-4.8) L Calcium Level 8.5 mg/dL (8.7-10.4) L Total Protein 5.6 g/dL (5.7-8.2) L LFT Test 07/18/25 09:30 Alanine Aminotransferase (ALT) 51 U/L (7-40) H Alkaline Phosphatase 83 U/L (46-116) Aspartate Amino Transferase (AST) 20 U/L (13-40) Total Bilirubin 0.4 mg/dL (0.2-1.0) Urinalysis Test 07/10/25 23:48 07/11/25 04:12 Urine Color Yellow (Yellow) Urine Clarity Clear (Clear) Urine pH 6.5 (5.0-9.0) Urine Specific [place] 1.027 (1.001-1.035) Urine Protein Negative (Negative) Urine Ketones Negative (Negative) Urine Blood Negative /uL (Negative) Urine Nitrite Negative (Negative) Urine Bilirubin Negative (Negative) Urine Urobilinogen 2 mg/dL (Negative) H Urine Leukocyte Esterase Negative /uL (Negative) Urine RBC None seen /hpf (0 - 3) Urine Microscopic WBC 1 /HPF (0-3) Urine Squamous Epithelial Cells Few /hpf (<5) Urine Bacteria None seen /hpf (None Seen) Urine Hyaline Casts Few /lpf (0 - 2) Urine Glucose Normal mg/dL (Normal) Urine Osmolality 826 mOsm/kg Microbiology Microbiology Date/Time Source Procedure Growth Status 07/10/25 19:15 Blood Blood Culture - Final Staphylococcus epidermidis Complete Assessment/Plan Assessment/Plan Impression: Acute hypoxic respiratory failure On mechanical ventilator S/p tracheostomy Sepsis 2/2 pneumonia Pneumonia, likely GNR Hypokalemia Hx of nicotine dependence Obesity, BMI 32.1 Events: Patient failed CPAP. Increased secretions noted. Recommend bronchoscopy to clear suspected mucous plugs. Continue pulmonary toileting Trach care per RT. Continues on vent support Continue antibiotics Continue bronchodilators Monitor renal function Monitor electrolytes. Supplement as necessary. Monitor potassium d/t hypokalemia - K of 3.7 currently Labs and imaging reviewed. Rest of plan as noted below. Plan: On mechanical ventilator. On SIMV mode; home vent settings. S/p tracheostomy, on trach collar On Medivent. Discussion with family on duration of vent dependence/LTAC-weaning trial off vent. Trach care CPAP trial Possible wean off ventilator, trach collar trials Recommend daily CPAP trials OK to increase PS to max 20 cmH2O to achieve tidal volume 400-500 mL. Continue antibiotics. Continue bronchodilators Pressors as necessary for hemodynamic support Titrate to keep mean arterial pressure greater than 65 mmHg. Monitor renal function Monitor electrolytes. Supplement as necessary. Monitor ins and outs. Maintain euvolemia. Wound care. DVT prophylaxis - SCDs. Prognosis: Poor given patient's multiple co-morbidities. Condition: Critical Rest of plan per hospitalist and other consultants. A total of 35 minutes of critical care time was spent reviewing the patient record, examining the patient, making a diagnostic and therapeutic plan, discussing this plan with the medical personnel, following up on diagnostic studies and following the patient for clinical stability excluding any and all procedures. At least 50% of this time was spent in direct, [id number] contact. Thank you, Dr. Mahmood, for allowing me to participate in this patient's care. Further recommendations will depend on the patient's clinical course. Please do not hesitate to contact me if you have any questions or concerns. This medical document was created using an electronic medical record system with [employer] dictation system. Although these documentations are being carefully reviewed, there may still be some phonetic and typographical changes. The errors are purely typographical, due to imperfection on the software program, and do not reflect any compromise in the patient's medical care. Plan discussed with: Patient, Other (EDA Francis) Visit Coding Pulmonary Billing Provider: NICHOLAS CONNELLY MD Date of Service if different f: Jul 18, 2025 Common Visit Codes: [id number] INP/OBS CARE(HIGH), [id number] CARE 30-74 MIN NICHOLAS CONNELLY MD Jul 18, 2025 23:47
[2025-07-19] VITALS (22 sets, daily range): BP systolic 100–124; BP diastolic 44–59; PULSE 56–64; RESP 14–25; TEMP 98–100.6; O2SAT 92–99
[2025-07-19 07:09] LABS: Chloride 106 mmol/L (98-107); Potassium 3.8 mmol/L (3.5-5.1); Sodium 141 mmol/L (136-145)
[2025-07-19 07:10] LABS: Anion Gap 8 (5-15); Carbon Dioxide 27 mmol/L (20-31)
[2025-07-19 07:15] LABS: Calcium 8.5 mg/dL (8.7-10.4)
[2025-07-19 07:16] LABS: BUN/Creatinine Ratio 25.0 (10.0-20.0); Blood Urea Nitrogen 17 mg/dL (9-23)
[2025-07-19 07:25] LABS: Glucose 124 mg/dL (74-106)
--- NOTE | 2025-07-19 09:34 | DVHPN2 ---
Reviewed: H&P Changes from previous H/P or p: No Changes General: Per HPI Objective Vitals Vital Signs Date Time Temp Pulse Resp B/P (MAP) Pulse Ox O2 Delivery O2 Flow Rate FiO2 07/19/25 09:16 60 16 96 30 07/19/25 08:30 98.4 98.4 07/19/25 07:30 Mechanical Ventilator+ 07/18/25 10:24 2.0 Intake/Output Intake and Output 07/19/25 07:00 Intake Total 250 ml Output Total 925 ml Balance -675 ml Intake Oral 0 ml IV Total 250 ml Output Urine Total 925 ml Exam Gen: 74-year-old male in mild distress. Skin: Warm, dry, normal color and texture, no rash. HEENT: Normocephalic atraumatic, mucous membranes moist and pink. Neck: Cervical and supraclavicular nodes normal without enlargement, trachea is midline, thyroid gland is normal without masses. Pulmonary: Tracheostomy, diminished breath sounds Cardiac: Regular rate and rhythm. No murmur Abdomen: Soft, nontender, nondistended, bowel sounds present all 4 quadrants, no guarding, no rigidity, no organomegaly. Extremities: No cyanosis, clubbing, no edema Neuro: Grossly brainstem reflexes intact, unable to assess nerve 7 and 5, patient nonobstructive interview, reflexes present, in apparent left-sided deficits from prior stroke. Medications Current Medications Medications Dose Ordered Sig/Dayna Route Start Time Stop Time Status Last Admin Dose Admin Nitroglycerin 0.4 mg Q5MINP PRN SL 07/11/25 00:00 Morphine Sulfate 2 mg Q30M PRN IV 07/11/25 00:00 Ceftriaxone Sodium 50 ml @ 100 mls/hr DAILY@09 IV 07/11/25 09:00 07/19/25 08:30 100 MLS/HR Albuterol 2.5 mg Q4HR NEB 07/11/25 14:00 07/19/25 07:41 2.5 MG Ipratropium [place] 0.5 mg Q4HR NEB 07/11/25 14:00 07/19/25 07:41 0.5 MG Aspirin 81 mg DAILY PO 07/12/25 10:00 07/14/25 08:40 81 MG Doxycycline Hyclate 100 ml @ 50 mls/hr Q12H IV 07/11/25 12:45 07/19/25 00:32 50 MLS/HR Purified Water 400 ml Q8H GT 07/11/25 15:45 07/19/25 08:31 400 ML Enteral Nutritional Formula 1,000 ml 55ML/HR GT 07/14/25 14:00 07/17/25 19:40 1,000 ML Acetylcysteine 100 mg BID NEB 07/15/25 18:00 07/18/25 22:04 100 MG Laboratory Results Laboratory Tests 07/18/25 09:30 07/19/25 06:15 Chemistry Test 07/19/25 06:15 Calcium Level 8.5 mg/dL (8.7-10.4) L Urinalysis Test 07/10/25 23:48 07/11/25 04:12 Urine Color Yellow (Yellow) Urine Clarity Clear (Clear) Urine pH 6.5 (5.0-9.0) Urine Specific [place] 1.027 (1.001-1.035) Urine Protein Negative (Negative) Urine Ketones Negative (Negative) Urine Blood Negative /uL (Negative) Urine Nitrite Negative (Negative) Urine Bilirubin Negative (Negative) Urine Urobilinogen 2 mg/dL (Negative) H Urine Leukocyte Esterase Negative /uL (Negative) Urine RBC None seen /hpf (0 - 3) Urine Microscopic WBC 1 /HPF (0-3) Urine Squamous Epithelial Cells Few /hpf (<5) Urine Bacteria None seen /hpf (None Seen) Urine Hyaline Casts Few /lpf (0 - 2) Urine Glucose Normal mg/dL (Normal) Urine Osmolality 826 mOsm/kg Microbiology Microbiology Date/Time Source Procedure Growth Status 07/10/25 19:15 Blood Blood Culture - Final Staphylococcus epidermidis Complete Labs and/or images reviewed: Labs reviewed by me, Image(s) reviewed by me Assessment/Plan Assessment/Plan 74-year-old male presents for evaluation of altered mental status. Patient with a history of CVAs bed ridden and nonverbal. Patient noted by family members to be less alert over the past couple of days. so they brought him in for further evaluation. No family at bedside to provide further history. 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 Presenting with ALOC,. Patient is bedridden nonverbal. Opacities less alert. On initial eval labs showing hypernatremia, azotemia, troponins up to 400s. Urine concentrated 1.027. Thrombocytopenia 68, anemia 10.7, RDW high 18.3. Normocytic anemia. Cardiology consulted. Patient currently on Levophed, antibiotics ceftriaxone/doxycycline. Continuing aspirin 81, D5 half-normal at 85 cc,. Patient is having more productive cough through trach collar, respiratory source for infection possible. Patient does not respond to verbal or physical stimuli. Eyes open, brainstem reflexes intact,. We will start hydrocortisone 100 mg IV b.i.d. for 5 days,, patient is off Levophed, we will monitor for 12 hours in D OU before deescalating patient no other sources of infection of the respiratory, continues to be hospice criteria. Family has patient full code right now, appears that family may not understand the severity of patient's condition. 07/12: Patient looks more awake. Hypernatremia improving, creatinine improving,. Patient was severely dehydrated. We will continue to give IV antibiotics ceftriaxone doxycycline. Patient is off vasopressors, on ventilator on trach collar SIMV, can deescalate care to tele. Continue D5W for hypernatremia. Hydrocortisone to stop in 4 days. Patient remains eligible for hospice, we will have to discuss with family. 07/13: on tele now. wound care is seeing today, treating DTI that were found upon admission , will continue woundcare recs and q2h turns. . HNa improving, cont d5w and free water 300 q8h. pneumonia improving and continue suction by RT atleast bid. continue mycomyst and iv abx. restart feeds glucerna with goal 20cc (or per hospice registered nurse), stop for residuals >300. will focus on completing iv abx therapy for likely source pulmonary. 07/14: Continue wound care for sacral DTI, start Mucomyst b.i.d., tracheal suctioning by trach collar b.i.d., continuing IV antibiotics. Patient is looking much improved. Hypernatremia improved. Stop D5 W, continue free water 300 cc q.8, restarting feeds Vital high-protein per dietary recommendations. 07/15: Continuing care as per yesterday plan. Patient continues to improve. Labs stable vital signs stable. Continues to be dependent on the current/home vent settings SIMV. Likely we will finish antibiotic therapy tomorrow possible discharge tomorrow. Have already discussed with family in the wants to return to hospice at discharge. Likely discharge tomorrow, we will communicate with family. 07/16: Considering to re-evaluate patient's need for ventilator on the trach collar. We will discuss with family duration of trach, duration of vent dependence, and if patient has ever been tried weaning trial/LTAC weaning trial of vent dependence. Otherwise continue present management 07/17: Pulmonology onboard RT aware CPAP trial today. Plan to hopefully wean off ventilator trach collar trial today. 07/18: Yesterday tried weaning trach collar trial, patient became tachypneic significantly,. Continues to have significant secretions from tracheal suctioned. Continuing treatment for complicated pneumonia with IV antibiotics. Pulmonology consulted and following to assess for weaning potential. 07/19: Patient comfortable, we will continue daily trach collar trials. Appreciate pulmonology follow up. Diagnosis: Sepsis with septic shock , requiring vasopressor support Pneumonia, aspiration pneumonia possible , Gram-negative/Gram-positive possible , complicated with chronic tracheostomy, ventilator dependent Acute, toxic metabolic encephalopathy Thrombocytopenia Anemia , normocytic Hypernatremia Failure to thrive Pressure ulcer, DTI, stage1-2, POA CVA left weakness January 2025, failure to thrive with PEG tube,, hypertension, AVR 2021, pacemaker 2021 Plan: Aspirin 81, D5W 75 cc hour Holding any DVT prophylaxis Continue other home medications 400 cc free water q.8h D OU status, close monitoring Levophed, maintain map more than 65 Hydrocortisone 100 IV b.i.d. for 5 days Respiratory tree trach collar suction q.4h IV antibiotics ceftriaxone/doxycycline D OU Full code Plan discussed with: Patient Date of Service: Jul 19, 2025 Billing Provider: JAVID BLACKBURN MD Common Visit Codes: [id number] INP/OBS CARE(HIGH) JAVID BLACKBURN MD Jul 19, 2025 09:34
--- NOTE | 2025-07-19 21:31 | DVHPN2 ---
Subjective [facility] DOS: 07/19/2025 Patient seen and examined at bedside. S/p trach, on mechanical ventilator. Overnight events reviewed. Reviewed: H&P Changes from previous H/P or p: No Changes General: Per HPI Objective Vitals Vital Signs Date Time Temp Pulse Resp B/P (MAP) Pulse Ox O2 Delivery O2 Flow Rate FiO2 07/19/25 21:10 60 19 96 30 07/19/25 21:00 98.2 98.2 07/19/25 10:00 Mechanical Ventilator 07/18/25 10:24 2.0 Intake/Output Intake and Output 07/19/25 07:00 Intake Total 250 ml Output Total 925 ml Balance -675 ml Intake Oral 0 ml IV Total 250 ml Output Urine Total 925 ml Exam Gen.: Patient lying in bed in medical ICU. On mechanical ventilator. S/p Trach Head: Normocephalic, atraumatic. Eyes: PERRLA. Ears: Normal external anatomy. Throat: Endotracheal tube and orogastric tube in place. Neck: Trach in place. Chest: Transmitted breath sounds bilaterally. Decreased air entry bilaterally. No wheezing. Bibasilar crackles. Cardiovascular: Positive S1, positive S2. Regular rate and rhythm. Abdomen: Positive bowel sounds in all 4 quadrants. Soft, nontender, nondistended. : [place] in place. Normal external genitalia. Rectal: Deferred. Skin: Warm, dry. Intact. Extremities: 2+ radial pulses bilaterally. No lower extremity edema. Neuro: Awake, alert. Medications Current Medications Medications Dose Ordered Sig/Dayna Route Start Time Stop Time Status Last Admin Dose Admin Nitroglycerin 0.4 mg Q5MINP PRN SL 07/11/25 00:00 Morphine Sulfate 2 mg Q30M PRN IV 07/11/25 00:00 Ceftriaxone Sodium 50 ml @ 100 mls/hr DAILY@09 IV 07/11/25 09:00 07/19/25 08:30 100 MLS/HR Albuterol 2.5 mg Q4HR NEB 07/11/25 14:00 07/19/25 21:09 2.5 MG Ipratropium [place] 0.5 mg Q4HR NEB 07/11/25 14:00 07/19/25 21:09 0.5 MG Aspirin 81 mg DAILY PO 07/12/25 10:00 07/19/25 10:26 81 MG Doxycycline Hyclate 100 ml @ 50 mls/hr Q12H IV 07/11/25 12:45 07/19/25 12:45 50 MLS/HR Purified Water 400 ml Q8H GT 07/11/25 15:45 07/19/25 15:45 400 ML Enteral Nutritional Formula 1,000 ml 55ML/HR GT 07/14/25 14:00 07/19/25 17:40 1,000 ML Acetylcysteine 100 mg BID NEB 07/15/25 18:00 07/19/25 21:09 100 MG Laboratory Results Laboratory Tests 07/18/25 09:30 07/19/25 06:15 Chemistry Test 07/19/25 06:15 Calcium Level 8.5 mg/dL (8.7-10.4) L Urinalysis Test 07/10/25 23:48 07/11/25 04:12 Urine Color Yellow (Yellow) Urine Clarity Clear (Clear) Urine pH 6.5 (5.0-9.0) Urine Specific [place] 1.027 (1.001-1.035) Urine Protein Negative (Negative) Urine Ketones Negative (Negative) Urine Blood Negative /uL (Negative) Urine Nitrite Negative (Negative) Urine Bilirubin Negative (Negative) Urine Urobilinogen 2 mg/dL (Negative) H Urine Leukocyte Esterase Negative /uL (Negative) Urine RBC None seen /hpf (0 - 3) Urine Microscopic WBC 1 /HPF (0-3) Urine Squamous Epithelial Cells Few /hpf (<5) Urine Bacteria None seen /hpf (None Seen) Urine Hyaline Casts Few /lpf (0 - 2) Urine Glucose Normal mg/dL (Normal) Urine Osmolality 826 mOsm/kg Microbiology Microbiology Date/Time Source Procedure Growth Status 07/10/25 19:15 Blood Blood Culture - Final Staphylococcus epidermidis Complete Assessment/Plan Assessment/Plan Impression: Acute hypoxic respiratory failure On mechanical ventilator S/p tracheostomy Sepsis 2/2 pneumonia Pneumonia, likely GNR Hypokalemia Hx of nicotine dependence Obesity, BMI 32.1 Events: Continues on vent support via trach On SIMV mode; RR 6, VT 570, PS 10, PEEP 6, FiO2 30% ABG reviewed, notable for alkalemia. Continuing CPAP trials. Increased secretions noted. Recommend bronchoscopy to clear suspected mucous plugs. Continue pulmonary toileting Trach care per RT. Continue antibiotics Continue bronchodilators G-tube in place Tube feeds for nutritional support Wound care Labs and imaging reviewed. Rest of plan as noted below. Plan: On mechanical ventilator. On SIMV mode; RR 6, VT 570, PS 10, PEEP 6, FiO2 30% S/p tracheostomy, on trach collar On Medivent. Discussion with family on duration of vent dependence/LTAC-weaning trial off vent. Trach care CPAP trial Possible wean off ventilator, trach collar trials Recommend daily CPAP trials OK to increase PS to max 20 cmH2O to achieve tidal volume 400-500 mL. Continue antibiotics. Continue bronchodilators Pressors as necessary for hemodynamic support Titrate to keep mean arterial pressure greater than 65 mmHg. Monitor renal function Monitor electrolytes. Supplement as necessary. Hypokalemia resolved - K of 3.8 currently Monitor ins and outs. Maintain euvolemia. Wound care. DVT prophylaxis - SCDs. Prognosis: Poor given patient's multiple co-morbidities. Rest of plan per hospitalist and other consultants. Thank you, Dr. Mahmood, for allowing me to participate in this patient's care. Further recommendations will depend on the patient's clinical course. Please do not hesitate to contact me if you have any questions or concerns. This medical document was created using an electronic medical record system with [employer] dictation system. Although these documentations are being carefully reviewed, there may still be some phonetic and typographical changes. The errors are purely typographical, due to imperfection on the software program, and do not reflect any compromise in the patient's medical care. Plan discussed with: Other (EDA Francis) Visit Coding Pulmonary Billing Provider: NICHOLAS CONNELLY MD Date of Service if different f: Jul 19, 2025 Common Visit Codes: [id number] INP/OBS CARE(HIGH) NICHOLAS CONNELLY MD Jul 19, 2025 21:31
[2025-07-20] VITALS (21 sets, daily range): BP systolic 107–131; BP diastolic 52–62; PULSE 56–63; RESP 14–33; TEMP 97.6–99.1; O2SAT 93–100
--- NOTE | 2025-07-20 09:32 | DVHPN2 ---
Reviewed: H&P Changes from previous H/P or p: No Changes General: Per HPI Objective Vitals Vital Signs Date Time Temp Pulse Resp B/P (MAP) Pulse Ox O2 Delivery O2 Flow Rate FiO2 07/20/25 07:54 60 24 94 30 07/20/25 06:57 Mechanical Ventilator 07/20/25 05:00 97.6 97.6 07/18/25 10:24 2.0 Intake/Output Intake and Output 07/20/25 07:00 Intake Total 633 ml Output Total 1250 ml Balance -617 ml Intake Oral 0 ml IV Total 250 ml Tube Feeding 383 ml Output Urine Total 1250 ml Exam Gen: 74-year-old male in mild distress. Skin: Warm, dry, normal color and texture, no rash. HEENT: Normocephalic atraumatic, mucous membranes moist and pink. Neck: Cervical and supraclavicular nodes normal without enlargement, trachea is midline, thyroid gland is normal without masses. Pulmonary: Tracheostomy, diminished breath sounds Cardiac: Regular rate and rhythm. No murmur Abdomen: Soft, nontender, nondistended, bowel sounds present all 4 quadrants, no guarding, no rigidity, no organomegaly. Extremities: No cyanosis, clubbing, no edema Neuro: Grossly brainstem reflexes intact, unable to assess nerve 7 and 5, patient nonobstructive interview, reflexes present, in apparent left-sided deficits from prior stroke. Medications Current Medications Medications Dose Ordered Sig/Dayna Route Start Time Stop Time Status Last Admin Dose Admin Nitroglycerin 0.4 mg Q5MINP PRN SL 07/11/25 00:00 Ceftriaxone Sodium 50 ml @ 100 mls/hr DAILY@09 IV 07/11/25 09:00 07/19/25 08:30 100 MLS/HR Albuterol 2.5 mg Q4HR NEB 07/11/25 14:00 07/20/25 06:57 2.5 MG Ipratropium [place] 0.5 mg Q4HR NEB 07/11/25 14:00 07/20/25 06:57 0.5 MG Aspirin 81 mg DAILY PO 07/12/25 10:00 07/19/25 10:26 81 MG Doxycycline Hyclate 100 ml @ 50 mls/hr Q12H IV 07/11/25 12:45 07/20/25 01:11 50 MLS/HR Purified Water 400 ml Q8H GT 07/11/25 15:45 07/19/25 23:45 400 ML Enteral Nutritional Formula 1,000 ml 55ML/HR GT 07/14/25 14:00 07/19/25 17:40 1,000 ML Acetylcysteine 100 mg BID NEB 07/15/25 18:00 07/19/25 21:09 100 MG Laboratory Results Laboratory Tests 07/18/25 09:30 07/19/25 06:15 Urinalysis Test 07/10/25 23:48 07/11/25 04:12 Urine Color Yellow (Yellow) Urine Clarity Clear (Clear) Urine pH 6.5 (5.0-9.0) Urine Specific [place] 1.027 (1.001-1.035) Urine Protein Negative (Negative) Urine Ketones Negative (Negative) Urine Blood Negative /uL (Negative) Urine Nitrite Negative (Negative) Urine Bilirubin Negative (Negative) Urine Urobilinogen 2 mg/dL (Negative) H Urine Leukocyte Esterase Negative /uL (Negative) Urine RBC None seen /hpf (0 - 3) Urine Microscopic WBC 1 /HPF (0-3) Urine Squamous Epithelial Cells Few /hpf (<5) Urine Bacteria None seen /hpf (None Seen) Urine Hyaline Casts Few /lpf (0 - 2) Urine Glucose Normal mg/dL (Normal) Urine Osmolality 826 mOsm/kg Microbiology Microbiology Date/Time Source Procedure Growth Status 07/10/25 19:15 Blood Blood Culture - Final Staphylococcus epidermidis Complete Labs and/or images reviewed: Labs reviewed by me, Image(s) reviewed by me Assessment/Plan Assessment/Plan 74-year-old male presents for evaluation of altered mental status. Patient with a history of CVAs bed ridden and nonverbal. Patient noted by family members to be less alert over the past couple of days. so they brought him in for further evaluation. No family at bedside to provide further history. 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 Presenting with ALOC,. Patient is bedridden nonverbal. Opacities less alert. On initial eval labs showing hypernatremia, azotemia, troponins up to 400s. Urine concentrated 1.027. Thrombocytopenia 68, anemia 10.7, RDW high 18.3. Normocytic anemia. Cardiology consulted. Patient currently on Levophed, antibiotics ceftriaxone/doxycycline. Continuing aspirin 81, D5 half-normal at 85 cc,. Patient is having more productive cough through trach collar, respiratory source for infection possible. Patient does not respond to verbal or physical stimuli. Eyes open, brainstem reflexes intact,. We will start hydrocortisone 100 mg IV b.i.d. for 5 days,, patient is off Levophed, we will monitor for 12 hours in D OU before deescalating patient no other sources of infection of the respiratory, continues to be hospice criteria. Family has patient full code right now, appears that family may not understand the severity of patient's condition. 07/12: Patient looks more awake. Hypernatremia improving, creatinine improving,. Patient was severely dehydrated. We will continue to give IV antibiotics ceftriaxone doxycycline. Patient is off vasopressors, on ventilator on trach collar SIMV, can deescalate care to tele. Continue D5W for hypernatremia. Hydrocortisone to stop in 4 days. Patient remains eligible for hospice, we will have to discuss with family. 07/13: on tele now. wound care is seeing today, treating DTI that were found upon admission , will continue woundcare recs and q2h turns. . HNa improving, cont d5w and free water 300 q8h. pneumonia improving and continue suction by RT atleast bid. continue mycomyst and iv abx. restart feeds glucerna with goal 20cc (or per technical operations specialist), stop for residuals >300. will focus on completing iv abx therapy for likely source pulmonary. 07/14: Continue wound care for sacral DTI, start Mucomyst b.i.d., tracheal suctioning by trach collar b.i.d., continuing IV antibiotics. Patient is looking much improved. Hypernatremia improved. Stop D5 W, continue free water 300 cc q.8, restarting feeds Vital high-protein per dietary recommendations. 07/15: Continuing care as per yesterday plan. Patient continues to improve. Labs stable vital signs stable. Continues to be dependent on the current/home vent settings SIMV. Likely we will finish antibiotic therapy tomorrow possible discharge tomorrow. Have already discussed with family in the wants to return to hospice at discharge. Likely discharge tomorrow, we will communicate with family. 07/16: Considering to re-evaluate patient's need for ventilator on the trach collar. We will discuss with family duration of trach, duration of vent dependence, and if patient has ever been tried weaning trial/LTAC weaning trial of vent dependence. Otherwise continue present management 07/17: Pulmonology onboard RT aware CPAP trial today. Plan to hopefully wean off ventilator trach collar trial today. 07/18: Yesterday tried weaning trach collar trial, patient became tachypneic significantly,. Continues to have significant secretions from tracheal suctioned. Continuing treatment for complicated pneumonia with IV antibiotics. Pulmonology consulted and following to assess for weaning potential. 07/19: Patient comfortable, we will continue daily trach collar trials. Appreciate pulmonology follow up. 07/20: Patient is comfortable, awake and alert, following commands. Continue daily trach collar trials CPAP trials. Appreciate pulmonology. We will reassess for the need of antibiotics. Please continue b.i.d. cool-mist and as scheduled nebulizer treatments, continue b.i.d. deep tracheal suctioning per RT. Diagnosis: Sepsis with septic shock , requiring vasopressor support Pneumonia, aspiration pneumonia possible , Gram-negative/Gram-positive possible , complicated with chronic tracheostomy, ventilator dependent Acute, toxic metabolic encephalopathy Thrombocytopenia Anemia , normocytic Hypernatremia Failure to thrive Pressure ulcer, DTI, stage1-2, POA CVA left weakness January 2025, failure to thrive with PEG tube,, hypertension, AVR 2021, pacemaker 2021 Plan: Aspirin 81, D5W 75 cc hour Holding any DVT prophylaxis Continue other home medications 400 cc free water q.8h D OU status, close monitoring Levophed, maintain map more than 65 Hydrocortisone 100 IV b.i.d. for 5 days Respiratory tree trach collar suction q.4h IV antibiotics ceftriaxone/doxycycline D OU Full code Plan discussed with: Patient Date of Service: Jul 20, 2025 Billing Provider: JAVID BLACKBURN MD Common Visit Codes: [id number] INP/OBS CARE(HIGH) JAVID BLACKBURN MD Jul 20, 2025 09:32
--- NOTE | 2025-07-20 09:50 | DVHPN2 ---
Progress Note - Dictate Date Seen: Jul 20, 2025 Medical Necessity Reason Pt with a Central, PICC or Fol: Yes The following are medically ne: Navarro Catheter vital signs Vital Sign Date Time Temp Pulse Resp B/P (MAP) Pulse Ox O2 Delivery O2 Flow Rate FiO2 07/20/25 07:54 60 24 94 30 07/20/25 06:57 Mechanical Ventilator 07/20/25 05:00 97.6 97.6 07/18/25 10:24 2.0 Total Intake and Output 07/19/25 07/19/25 07/20/25 15:00 23:00 07:00 Intake Total 150 ml 383 ml 100 ml Output Total 650 ml 600 ml Balance 150 ml -267 ml -500 ml medications Current Medications Medications Dose Ordered Sig/Dayna Route Start Time Stop Time Status Last Admin Dose Admin Nitroglycerin 0.4 mg Q5MINP PRN SL 07/11/25 00:00 Ceftriaxone Sodium 50 ml @ 100 mls/hr DAILY@09 IV 07/11/25 09:00 07/19/25 08:30 100 MLS/HR Albuterol 2.5 mg Q4HR NEB 07/11/25 14:00 07/20/25 06:57 2.5 MG Ipratropium [place] 0.5 mg Q4HR NEB 07/11/25 14:00 07/20/25 06:57 0.5 MG Aspirin 81 mg DAILY PO 07/12/25 10:00 07/19/25 10:26 81 MG Doxycycline Hyclate 100 ml @ 50 mls/hr Q12H IV 07/11/25 12:45 07/20/25 01:11 50 MLS/HR Purified Water 400 ml Q8H GT 07/11/25 15:45 07/19/25 23:45 400 ML Enteral Nutritional Formula 1,000 ml 55ML/HR GT 07/14/25 14:00 07/19/25 17:40 1,000 ML Acetylcysteine 100 mg BID NEB 07/15/25 18:00 07/19/25 21:09 100 MG laboratory and microbiology Laboratory Tests 07/19/25 06:15 07/18/25 09:30 Test 07/19/25 06:15 Range/Units Serum Glucose 124 H 74-106 mg/dL Assessment/Plan Acute hypoxic respiratory failure On mechanical ventilator S/p tracheostomy Sepsis 2/2 pneumonia Pneumonia, likely GNR Hypokalemia Hx of nicotine dependence Obesity, BMI 32.1 Events: Continues on vent support via trach On SIMV mode; RR 6, VT 570, PS 10, PEEP 6, FiO2 30% pt vent-dependent apneic on CPAP trials prognosis very poor G-tube in place Tube feeds for nutritional support Wound care Labs and imaging reviewed. Rest of plan as noted below. Plan: cont vent support On mechanical ventilator. On SIMV mode; S/p tracheostomy, on trach collar On Medivent. Discussion with family on duration of vent dependence/LTAC-weaning trial off vent. Trach care Continue antibiotics. Continue bronchodilators Wound care. DVT prophylaxis - SCDs. Dietary Evaluation Review Comments: Nutrition Recommendation: 1) EN Glucerna 1.2 @ 60ml/hr x 24hr (goal). TF at goal volume provides 1728 kcal (100%), 86 gm protein (100%), and 1159 ml free water. 2) Consider TPN/PN if NPO>7 days 3) Monitor NPO status, lab values, weight trend, and I/O Expected Outcomes/Goals: Intake to meet >75% estimated needs Lab values to improve FU 2-3 days Plan discussed with: Other (rt) HEIDI MATHUR MD Jul 20, 2025 09:50
[2025-07-21] VITALS (21 sets, daily range): BP systolic 113–137; BP diastolic 50–66; PULSE 56–66; RESP 14–30; TEMP 98.1–99.5; O2SAT 95–100
[2025-07-21 05:57] LABS: Hematocrit 28.8 % (41.0-53.0); Hemoglobin 9.5 g/dL (13.5-17.5); Mean Corpuscular Hemoglobin 28.9 pg (28.0-32.0); Mean Corpuscular Volume 87.8 fL (80.0-100.0); Nucleated Red Blood Cells % 0.1 %
[2025-07-21 06:17] LABS: Alanine Aminotransferase 36 U/L (7-40); Alkaline Phosphatase 69 U/L (46-116); Anion Gap 9 (5-15); BUN/Creatinine Ratio 27.4 (10.0-20.0); Blood Urea Nitrogen 17 mg/dL (9-23); Carbon Dioxide 27 mmol/L (20-31); Chloride 105 mmol/L (98-107); Glucose 103 mg/dL (74-106); Potassium 3.8 mmol/L (3.5-5.1); Sodium 141 mmol/L (136-145)
[2025-07-21 06:18] LABS: Albumin 2.7 g/dL (3.2-4.8); Bilirubin, Total 0.3 mg/dL (0.2-1.0); Calcium 8.5 mg/dL (8.7-10.4); Total Protein 5.2 g/dL (5.7-8.2)
--- NOTE | 2025-07-21 11:55 | DVHPN2 ---
Progress Note - Dictate Date Seen: Jul 21, 2025 Medical Necessity Reason Pt with a Central, PICC or Fol: Yes The following are medically ne: Navarro Catheter vital signs Vital Sign Date Time Temp Pulse Resp B/P (MAP) Pulse Ox O2 Delivery O2 Flow Rate FiO2 07/21/25 10:30 96 Mechanical Ventilator 07/21/25 09:59 60 20 30 07/21/25 09:05 99.5 99.5 07/20/25 20:00 15 Total Intake and Output 07/20/25 07/20/25 07/21/25 15:00 23:00 07:00 Intake Total 533 ml 1050 ml Output Total 700 ml 850 ml Balance 533 ml 350 ml -850 ml medications Current Medications Medications Dose Ordered Sig/Dayna Route Start Time Stop Time Status Last Admin Dose Admin Nitroglycerin 0.4 mg Q5MINP PRN SL 07/11/25 00:00 Ceftriaxone Sodium 50 ml @ 100 mls/hr DAILY@09 IV 07/11/25 09:00 07/21/25 08:42 100 MLS/HR Albuterol 2.5 mg Q4HR NEB 07/11/25 14:00 07/21/25 09:58 2.5 MG Ipratropium [place] 0.5 mg Q4HR NEB 07/11/25 14:00 07/21/25 09:58 0.5 MG Aspirin 81 mg DAILY PO 07/12/25 10:00 07/19/25 10:26 81 MG Doxycycline Hyclate 100 ml @ 50 mls/hr Q12H IV 07/11/25 12:45 07/21/25 00:01 50 MLS/HR Purified Water 400 ml Q8H GT 07/11/25 15:45 07/21/25 08:42 400 ML Enteral Nutritional Formula 1,000 ml 55ML/HR GT 07/14/25 14:00 07/19/25 17:40 1,000 ML Acetylcysteine 100 mg BID NEB 07/15/25 18:00 07/21/25 06:07 100 MG laboratory and microbiology Laboratory Tests 07/21/25 04:40 Test 07/21/25 04:40 Range/Units Serum Glucose 103 74-106 mg/dL Assessment/Plan Acute hypoxic respiratory failure On mechanical ventilator S/p tracheostomy Sepsis 2/2 pneumonia Pneumonia, likely GNR Hypokalemia Hx of nicotine dependence Obesity, BMI 32.1 Events: Continues on vent support via trach pt vent-dependent apneic on CPAP trials prognosis very poor labs and imaging reviewed Plan: cont vent support On Medivent. Discussion with family on duration of vent dependence/LTAC-weaning trial off vent. Trach care Continue antibiotics. Continue bronchodilators Awaiting placement Wound care. DVT prophylaxis - SCDs. Dietary Evaluation Review Comments: Nutrition Recommendation: 1) EN Glucerna 1.2 @ 60ml/hr x 24hr (goal). TF at goal volume provides 1728 kcal (100%), 86 gm protein (100%), and 1159 ml free water. 2) Consider TPN/PN if NPO>7 days 3) Monitor NPO status, lab values, weight trend, and I/O Expected Outcomes/Goals: Intake to meet >75% estimated needs Lab values to improve FU 2-3 days Plan discussed with: Other (Rn) HEIDI MATHUR MD Jul 21, 2025 11:55
--- NOTE | 2025-07-21 14:32 | DVHPN2 ---
Reviewed: Care Plan, H&P Changes from previous H/P or p: No Changes General: Per HPI Objective Vitals Vital Signs Date Time Temp Pulse Resp B/P (MAP) Pulse Ox O2 Delivery O2 Flow Rate FiO2 07/21/25 14:10 60 14 96 30 07/21/25 12:40 98.8 98.8 07/21/25 10:30 Mechanical Ventilator 07/20/25 20:00 15 Intake/Output Intake and Output 07/21/25 07:00 Intake Total 1583 ml Output Total 1550 ml Balance 33 ml Intake Oral 0 ml IV Total 150 ml Tube Feeding 1433 ml Output Urine Total 1550 ml Medications Current Medications Medications Dose Ordered Sig/Dayna Route Start Time Stop Time Status Last Admin Dose Admin Nitroglycerin 0.4 mg Q5MINP PRN SL 07/11/25 00:00 Ceftriaxone Sodium 50 ml @ 100 mls/hr DAILY@09 IV 07/11/25 09:00 07/21/25 08:42 100 MLS/HR Albuterol 2.5 mg Q4HR NEB 07/11/25 14:00 07/21/25 14:10 2.5 MG Ipratropium [place] 0.5 mg Q4HR NEB 07/11/25 14:00 07/21/25 14:10 0.5 MG Aspirin 81 mg DAILY PO 07/12/25 10:00 07/19/25 10:26 81 MG Doxycycline Hyclate 100 ml @ 50 mls/hr Q12H IV 07/11/25 12:45 07/21/25 12:24 50 MLS/HR Purified Water 400 ml Q8H GT 07/11/25 15:45 07/21/25 08:42 400 ML Enteral Nutritional Formula 1,000 ml 55ML/HR GT 07/14/25 14:00 07/19/25 17:40 1,000 ML Acetylcysteine 100 mg BID NEB 07/15/25 18:00 07/21/25 06:07 100 MG Laboratory Results Laboratory Tests 07/21/25 04:40 Chemistry Test 07/21/25 04:40 Albumin 2.7 g/dL (3.2-4.8) L Calcium Level 8.5 mg/dL (8.7-10.4) L Total Protein 5.2 g/dL (5.7-8.2) L LFT Test 07/21/25 04:40 Alanine Aminotransferase (ALT) 36 U/L (7-40) Alkaline Phosphatase 69 U/L (46-116) Aspartate Amino Transferase (AST) 23 U/L (13-40) Total Bilirubin 0.3 mg/dL (0.2-1.0) Urinalysis Test 07/10/25 23:48 07/11/25 04:12 Urine Color Yellow (Yellow) Urine Clarity Clear (Clear) Urine pH 6.5 (5.0-9.0) Urine Specific [place] 1.027 (1.001-1.035) Urine Protein Negative (Negative) Urine Ketones Negative (Negative) Urine Blood Negative /uL (Negative) Urine Nitrite Negative (Negative) Urine Bilirubin Negative (Negative) Urine Urobilinogen 2 mg/dL (Negative) H Urine Leukocyte Esterase Negative /uL (Negative) Urine RBC None seen /hpf (0 - 3) Urine Microscopic WBC 1 /HPF (0-3) Urine Squamous Epithelial Cells Few /hpf (<5) Urine Bacteria None seen /hpf (None Seen) Urine Hyaline Casts Few /lpf (0 - 2) Urine Glucose Normal mg/dL (Normal) Urine Osmolality 826 mOsm/kg Microbiology Microbiology Date/Time Source Procedure Growth Status 07/10/25 19:15 Blood Blood Culture - Final Staphylococcus epidermidis Complete Assessment/Plan Assessment/Plan 74-year-old male presents for evaluation of altered mental status. Patient with a history of CVAs bed ridden and nonverbal. Patient noted by family members to be less alert over the past couple of days. so they brought him in for further evaluation. No family at bedside to provide further history. 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 Presenting with ALOC,. Patient is bedridden nonverbal. Opacities less alert. On initial eval labs showing hypernatremia, azotemia, troponins up to 400s. Urine concentrated 1.027. Thrombocytopenia 68, anemia 10.7, RDW high 18.3. Normocytic anemia. Cardiology consulted. Patient currently on Levophed, antibiotics ceftriaxone/doxycycline. Continuing aspirin 81, D5 half-normal at 85 cc,. Patient is having more productive cough through trach collar, respiratory source for infection possible. Patient does not respond to verbal or physical stimuli. Eyes open, brainstem reflexes intact,. We will start hydrocortisone 100 mg IV b.i.d. for 5 days,, patient is off Levophed, we will monitor for 12 hours in D OU before deescalating patient no other sources of infection of the respiratory, continues to be hospice criteria. Family has patient full code right now, appears that family may not understand the severity of patient's condition. 07/12: Patient looks more awake. Hypernatremia improving, creatinine improving,. Patient was severely dehydrated. We will continue to give IV antibiotics ceftriaxone doxycycline. Patient is off vasopressors, on ventilator on trach collar SIMV, can deescalate care to tele. Continue D5W for hypernatremia. Hydrocortisone to stop in 4 days. Patient remains eligible for hospice, we will have to discuss with family. 07/13: on tele now. wound care is seeing today, treating DTI that were found upon admission , will continue woundcare recs and q2h turns. . HNa improving, cont d5w and free water 300 q8h. pneumonia improving and continue suction by RT atleast bid. continue mycomyst and iv abx. restart feeds glucerna with goal 20cc (or per mobile equipment operator), stop for residuals >300. will focus on completing iv abx therapy for likely source pulmonary. 07/14: Continue wound care for sacral DTI, start Mucomyst b.i.d., tracheal suctioning by trach collar b.i.d., continuing IV antibiotics. Patient is looking much improved. Hypernatremia improved. Stop D5 W, continue free water 300 cc q.8, restarting feeds Vital high-protein per dietary recommendations. 07/15: Continuing care as per yesterday plan. Patient continues to improve. Labs stable vital signs stable. Continues to be dependent on the current/home vent settings SIMV. Likely we will finish antibiotic therapy tomorrow possible discharge tomorrow. Have already discussed with family in the wants to return to hospice at discharge. Likely discharge tomorrow, we will communicate with family. 07/16: Considering to re-evaluate patient's need for ventilator on the trach collar. We will discuss with family duration of trach, duration of vent dependence, and if patient has ever been tried weaning trial/LTAC weaning trial of vent dependence. Otherwise continue present management 07/17: Pulmonology onboard RT aware CPAP trial today. Plan to hopefully wean off ventilator trach collar trial today. 07/18: Yesterday tried weaning trach collar trial, patient became tachypneic significantly,. Continues to have significant secretions from tracheal suctioned. Continuing treatment for complicated pneumonia with IV antibiotics. Pulmonology consulted and following to assess for weaning potential. 07/19: Patient comfortable, we will continue daily trach collar trials. Appreciate pulmonology follow up. 07/20: Patient is comfortable, awake and alert, following commands. Continue daily trach collar trials CPAP trials. Appreciate pulmonology. We will reassess for the need of antibiotics. Please continue b.i.d. cool-mist and as scheduled nebulizer treatments, continue b.i.d. deep tracheal suctioning per RT. 07/21/25: per manager social work' note: '[facility] RECEIVED AN ORDER TO D/C THAT THE PATIENT IS GOING BACK ON HOSPICE. CALLED THE DAUGHTER ROBERTO WHO CONFIRMED, THAT THE PATIENT IS GOING BACK ON HOSPICE. CALLED ANNIKA WATTERS JEANA AND EXPRESS TOO HIM TO CANCEL THE ORDER FOR LTACH. 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
--- NOTE | 2025-07-21 14:39 | DVHDS2 ---
Discharge Summary Date of Admission Jul 10, 2025 at 23:58 Date of Discharge: Jul 21, 2025 Labs/Diagnostic Data: Laboratory Results Test 07/21/25 04:40 07/17/25 09:25 07/12/25 06:29 07/11/25 22:42 White Blood Count 7.5 10^3/uL (4.4-10.8) Red Blood Count 3.28 10^6/uL (4.5-5.90) Hemoglobin 9.5 g/dL (13.5-17.5) Hematocrit 28.8 % (41.0-53.0) Mean Corpuscular Volume 87.8 fL (80.0-100.0) Mean Corpuscular Hemoglobin 28.9 pg (28.0-32.0) Mean Corpuscular Hemoglobin Concent 32.9 g/dL (32.0-36.0) Red Cell Distribution Width 17.6 % (11.8-14.3) Platelet Count 170 10^3/uL (140-450) Mean Platelet Volume 8.8 fL (6.9-10.8) Neutrophils (%) (Auto) 74.0 % (37.0-80.0) Lymphocytes (%) (Auto) 14.2 % (10.0-50.0) Monocytes (%) (Auto) 7.8 % (0.0-12.0) Eosinophils (%) (Auto) 3.3 % (0.0-7.0) Basophils (%) (Auto) 0.7 % (0.0-2.0) Neutrophils # (Auto) 5.6 10 ^3/uL (1.6-8.6) Lymphocytes # (Auto) 1.1 10 ^3/uL (0.4-5.4) Monocytes # (Auto) 0.6 10 ^3/uL (0-1.3) Eosinophils # (Auto) 0.2 10 ^3/uL (0-0.8) Basophils # (Auto) 0.1 10 ^3/uL (0-0.2) Nucleated Red Blood Cells 0.1 % Sodium Level 141 mmol/L (136-145) Potassium Level 3.8 mmol/L (3.5-5.1) Chloride Level 105 mmol/L (98-107) Carbon Dioxide Level 27 mmol/L (20-31) Anion Gap 9 (5-15) Blood Urea Nitrogen 17 mg/dL (9-23) Creatinine 0.62 mg/dL (0.700-1.30) Glomerular Filtration Rate Calc 102 mL/min (>90) BUN/Creatinine Ratio 27.4 (10.0-20.0) Serum Glucose 103 mg/dL (74-106) Calcium Level 8.5 mg/dL (8.7-10.4) Total Bilirubin 0.3 mg/dL (0.2-1.0) Aspartate Amino Transferase (AST) 23 U/L (13-40) Alanine Aminotransferase (ALT) 36 U/L (7-40) Alkaline Phosphatase 69 U/L (46-116) Total Protein 5.2 g/dL (5.7-8.2) Albumin 2.7 g/dL (3.2-4.8) Magnesium Level 1.8 mg/dL (1.6-2.6) Blood Gas Specimen Type Arterial Blood Gas Sample Site Right radial Blood Gas Patient Temperature 37.0 Arterial Blood Date Drawn [id number] Arterial Blood pH 7.452 (7.350-7.450) Arterial Blood Partial Pressure CO2 39.4 mmHg (35.0-48.0) Arterial Blood Partial Pressure O2 117.3 mmHg (83.0-108.0) Arterial Blood HCO3 26.9 mmol/L (21.0-28.0) Arterial Blood Oxygen Saturation 98.3 % (94.0-98.0) Arterial Blood Base Excess 2.8 mmol/L (-2.0-3.0) Arterial Blood Oxyhemoglobin 96.8 % (94.0-98.0) Arterial Blood Carboxyhemoglobin 1.1 % (0.5-1.5) Arterial Blood Methemoglobin 0.4 % (0.0-1.5) Shawn Test Modified Blood Gas Total Hemoglobin 12.70 g/dL (13.5-17.5) Blood Gas Set Respiration Rate 6.0 Blood Gas Modality Vent - simv FiO2 % 30.0 Blood Gas Tidal Volume 570.0 Blood Gas Pressure Support 10 Blood Gas PEEP or CPAP 6.0 POC Glucose 137 mg/dl (70-106) Test 07/11/25 04:12 07/10/25 23:48 07/10/25 23:45 07/10/25 20:45 Urine Osmolality 826 mOsm/kg Hemoglobin A1c 6.1 % A1C (<5.7) Serum Osmolality 356 mOsm/kg (278-298) Creatine Kinase 97 U/L (46-171) Troponin I High Sensitivity 591 ng/L (</=54) B-Type Natriuretic Peptide 92.12 pg/mL (0-100) Triglycerides Level 108 mg/dL (< 150) Cholesterol Level 105 mg/dL (< 200) LDL Cholesterol 64 mg/dL (< 100) HDL Cholesterol 23 mg/dL (40-59) Thyroid Stimulating Hormone (TSH) 4.33 uIU/mL (0.55-4.78) Urine Color Yellow (Yellow) Urine Clarity Clear (Clear) Urine pH 6.5 (5.0-9.0) Urine Specific [place] 1.027 (1.001-1.035) Urine Protein Negative (Negative) Urine Ketones Negative (Negative) Urine Blood Negative /uL (Negative) Urine Nitrite Negative (Negative) Urine Bilirubin Negative (Negative) Urine Urobilinogen 2 mg/dL (Negative) Urine Leukocyte Esterase Negative /uL (Negative) Urine RBC None seen /hpf (0 - 3) Urine Microscopic WBC 1 /HPF (0-3) Urine Squamous Epithelial Cells Few /hpf (<5) Urine Bacteria None seen /hpf (None Seen) Urine Hyaline Casts Few /lpf (0 - 2) Urine Glucose Normal mg/dL (Normal) Urine Opiates Screen Pos (NEGATIVE) Urine Fentanyl Screen Neg (NEGATIVE) Urine Barbiturates Screen Neg (NEGATIVE) Urine Phencyclidine Screen Neg (NEGATIVE) Urine Amphetamines Screen Neg (NEGATIVE) Urine Benzodiazepines Screen Neg (NEGATIVE) Urine Cocaine Screen Neg (NEGATIVE) Urine Cannabinoids Screen Neg (NEGATIVE) Platelet Estimate Decreased Large Platelets Few Anisocytosis (manual) Slight Test 07/10/25 19:22 07/10/25 19:15 Blood Gas Spontaneous Rate 18 Blood Gas Spontaneous Tidal Volume 582 Blood Gas Inspiratory Pressure 22.0 Bl Gas Inspiratory/Expiratory Ratio 1:2 Blood Gas Critical Value Read Back Yes Blood Gas Notified Whom katty [place] Blood Gas Notified Time [id number] Blood Gas Notified By Rt, michelle morales Prothrombin Time 11.4 sec (9.3-11.8) Prothrombin Time INR 1.08 (0.9-1.15) Activated Partial Thromboplast Time 24.6 SEC (24.5-34.5) Lactic Acid Level 1.9 mmol/L (0.4-2.0) Plasma/Serum Blood Alcohol < 3.0 mg/dL (<10) Other Laboratory Tests 07/21/25 04:40 Brief Hx & Hospital Course: 74-year-old male presents for evaluation of altered mental status. Patient with a history of CVAs bed ridden and nonverbal. Patient noted by family members to be less alert over the past couple of days. so they brought him in for further evaluation. No family at bedside to provide further history. 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 Presenting with ALOC,. Patient is bedridden nonverbal. Opacities less alert. On initial eval labs showing hypernatremia, azotemia, troponins up to 400s. Urine concentrated 1.027. Thrombocytopenia 68, anemia 10.7, RDW high 18.3. Normocytic anemia. Cardiology consulted. Patient currently on Levophed, antibiotics ceftriaxone/doxycycline. Continuing aspirin 81, D5 half-normal at 85 cc,. Patient is having more productive cough through trach collar, respiratory source for infection possible. Patient does not respond to verbal or physical stimuli. Eyes open, brainstem reflexes intact,. We will start hydrocortisone 100 mg IV b.i.d. for 5 days,, patient is off Levophed, we will monitor for 12 hours in D OU before deescalating patient no other sources of infection of the respiratory, continues to be hospice criteria. Family has patient full code right now, appears that family may not understand the severity of patient's condition. 07/12: Patient looks more awake. Hypernatremia improving, creatinine improving,. Patient was severely dehydrated. We will continue to give IV antibiotics ceftriaxone doxycycline. Patient is off vasopressors, on ventilator on trach collar SIMV, can deescalate care to tele. Continue D5W for hypernatremia. Hydrocortisone to stop in 4 days. Patient remains eligible for hospice, we will have to discuss with family. 07/13: on tele now. wound care is seeing today, treating DTI that were found upon admission , will continue woundcare recs and q2h turns. . HNa improving, cont d5w and free water 300 q8h. pneumonia improving and continue suction by RT atleast bid. continue mycomyst and iv abx. restart feeds glucerna with goal 20cc (or per hat former), stop for residuals >300. will focus on completing iv abx therapy for likely source pulmonary. 07/14: Continue wound care for sacral DTI, start Mucomyst b.i.d., tracheal suctioning by trach collar b.i.d., continuing IV antibiotics. Patient is looking much improved. Hypernatremia improved. Stop D5 W, continue free water 300 cc q.8, restarting feeds Vital high-protein per dietary recommendations. 07/15: Continuing care as per yesterday plan. Patient continues to improve. Labs stable vital signs stable. Continues to be dependent on the current/home vent settings SIMV. Likely we will finish antibiotic therapy tomorrow possible discharge tomorrow. Have already discussed with family in the wants to return to hospice at discharge. Likely discharge tomorrow, we will communicate with family. 07/16: Considering to re-evaluate patient's need for ventilator on the trach collar. We will discuss with family duration of trach, duration of vent dependence, and if patient has ever been tried weaning trial/LTAC weaning trial of vent dependence. Otherwise continue present management 07/17: Pulmonology onboard RT aware CPAP trial today. Plan to hopefully wean off ventilator trach collar trial today. 07/18: Yesterday tried weaning trach collar trial, patient became tachypneic significantly,. Continues to have significant secretions from tracheal suctioned. Continuing treatment for complicated pneumonia with IV antibiotics. Pulmonology consulted and following to assess for weaning potential. 07/19: Patient comfortable, we will continue daily trach collar trials. Appreciate pulmonology follow up. 07/20: Patient is comfortable, awake and alert, following commands. Continue daily trach collar trials CPAP trials. Appreciate pulmonology. We will reassess for the need of antibiotics. Please continue b.i.d. cool-mist and as scheduled nebulizer treatments, continue b.i.d. deep tracheal suctioning per RT. 07/21/25: per aids social worker' note: 'LTGAMALIEL RECEIVED AN ORDER TO D/C THAT THE PATIENT IS GOING BACK ON HOSPICE. CALLED THE DAUGHTER ROBERTO WHO CONFIRMED, THAT THE PATIENT IS GOING BACK ON HOSPICE. CALLED ANNIKA WATTERS JEANA AND EXPRESS TOO HIM TO CANCEL THE ORDER FOR LTACH. 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 Patient was counseled about treatment plan, medications, possible side effects, patientverbalized understanding. All questions were answered to the best of my ability. This discharge took greater then 30 minutes in planning, reviewing documentation, counseling the patient, and discussing with other team members." ASSESSMENT ASSESSMENT Assessment Date of Service: Jul 21, 2025 Billing Provider: MANDEEP BENTLEY DO Common Visit Codes: [id number] DISCH DAY >30min MANDEEP BENTLEY DO Jul 21, 2025 14:39
[2025-07-22] VITALS (22 sets, daily range): BP systolic 108–126; BP diastolic 53–65; PULSE 6–81; RESP 12–32; TEMP 97.7–98.7; O2SAT 91–99
--- NOTE | 2025-07-22 17:42 | DVHPN2 ---
Progress Note - Dictate Date Seen: Jul 22, 2025 Medical Necessity Reason Pt with a Central, PICC or Fol: Yes The following are medically ne: Navarro Catheter vital signs Vital Sign Date Time Temp Pulse Resp B/P (MAP) Pulse Ox O2 Delivery O2 Flow Rate FiO2 07/22/25 16:31 97.7 60 18 112/58 (76) 98 97.7 07/22/25 15:40 30 07/22/25 10:07 Mechanical Ventilator 07/20/25 20:00 15 Total Intake and Output 07/21/25 07/21/25 07/22/25 15:00 23:00 07:00 Intake Total 533 ml 50 ml 100 ml Output Total 700 ml 550 ml Balance 533 ml -650 ml -450 ml medications Current Medications Medications Dose Ordered Sig/Dayna Route Start Time Stop Time Status Last Admin Dose Admin Nitroglycerin 0.4 mg Q5MINP PRN SL 07/11/25 00:00 Albuterol 2.5 mg Q4HR NEB 07/11/25 14:00 07/22/25 13:34 2.5 MG Ipratropium [place] 0.5 mg Q4HR NEB 07/11/25 14:00 07/22/25 13:34 0.5 MG Aspirin 81 mg DAILY PO 07/12/25 10:00 07/19/25 10:26 81 MG Purified Water 400 ml Q8H GT 07/11/25 15:45 07/22/25 15:57 400 ML Enteral Nutritional Formula 1,000 ml 55ML/HR GT 07/14/25 14:00 07/19/25 17:40 1,000 ML Acetylcysteine 100 mg BID NEB 07/15/25 18:00 07/22/25 09:35 100 MG laboratory and microbiology Laboratory Tests 07/21/25 04:40 Test 07/21/25 04:40 Range/Units Serum Glucose 103 74-106 mg/dL Assessment/Plan Acute hypoxic respiratory failure On mechanical ventilator S/p tracheostomy Sepsis 2/2 pneumonia Pneumonia, likely GNR Hypokalemia Hx of nicotine dependence Obesity, BMI 32.1 Events: Continues on vent support via trach pt vent-dependent apneic on CPAP trials prognosis very poor labs and imaging reviewed Plan: cont vent support On Medivent. Discussion with family on duration of vent dependence/LTAC-weaning trial off vent. Trach care Continue antibiotics. Continue bronchodilators Awaiting placement Wound care. DVT prophylaxis - SCDs. Dietary Evaluation Review Comments: Nutrition Recommendation: 1) EN Glucerna 1.2 @ 60ml/hr x 24hr (goal). TF at goal volume provides 1728 kcal (100%), 86 gm protein (100%), and 1159 ml free water. 2) Consider TPN/PN if NPO>7 days 3) Monitor NPO status, lab values, weight trend, and I/O Expected Outcomes/Goals: Intake to meet >75% estimated needs Lab values to improve FU 2-3 days Plan discussed with: Other (Rn) HEIDI MATHUR MD Jul 22, 2025 17:42
--- NOTE | 2025-07-22 22:17 | DVHPN2 ---
Reviewed: Care Plan, H&P Changes from previous H/P or p: No Changes General: Per HPI Objective Vitals Vital Signs Date Time Temp Pulse Resp B/P (MAP) Pulse Ox O2 Delivery O2 Flow Rate FiO2 07/22/25 22:01 81 12 97 30 07/22/25 21:00 98.4 98.4 07/22/25 20:00 Mechanical Ventilator+ 07/20/25 20:00 15 Intake/Output Intake and Output 07/22/25 07:00 Intake Total 683 ml Output Total 1250 ml Balance -567 ml Intake Oral 0 ml IV Total 250 ml Tube Feeding 433 ml Output Urine Total 1250 ml Medications Current Medications Medications Dose Ordered Sig/Dayna Route Start Time Stop Time Status Last Admin Dose Admin Nitroglycerin 0.4 mg Q5MINP PRN SL 07/11/25 00:00 Albuterol 2.5 mg Q4HR NEB 07/11/25 14:00 07/22/25 22:01 2.5 MG Ipratropium [place] 0.5 mg Q4HR NEB 07/11/25 14:00 07/22/25 22:01 0.5 MG Aspirin 81 mg DAILY PO 07/12/25 10:00 07/19/25 10:26 81 MG Purified Water 400 ml Q8H GT 07/11/25 15:45 07/22/25 15:57 400 ML Enteral Nutritional Formula 1,000 ml 55ML/HR GT 07/14/25 14:00 07/19/25 17:40 1,000 ML Acetylcysteine 100 mg BID NEB 07/15/25 18:00 07/22/25 18:14 100 MG Laboratory Results Laboratory Tests 07/21/25 04:40 Urinalysis Test 07/10/25 23:48 07/11/25 04:12 Urine Color Yellow (Yellow) Urine Clarity Clear (Clear) Urine pH 6.5 (5.0-9.0) Urine Specific [employer] 1.027 (1.001-1.035) Urine Protein Negative (Negative) Urine Ketones Negative (Negative) Urine Blood Negative /uL (Negative) Urine Nitrite Negative (Negative) Urine Bilirubin Negative (Negative) Urine Urobilinogen 2 mg/dL (Negative) H Urine Leukocyte Esterase Negative /uL (Negative) Urine RBC None seen /hpf (0 - 3) Urine Microscopic WBC 1 /HPF (0-3) Urine Squamous Epithelial Cells Few /hpf (<5) Urine Bacteria None seen /hpf (None Seen) Urine Hyaline Casts Few /lpf (0 - 2) Urine Glucose Normal mg/dL (Normal) Urine Osmolality 826 mOsm/kg Microbiology Microbiology Date/Time Source Procedure Growth Status 07/10/25 19:15 Blood Blood Culture - Final Staphylococcus epidermidis Complete Assessment/Plan Assessment/Plan 74-year-old male presents for evaluation of altered mental status. Patient with a history of CVAs bed ridden and nonverbal. Patient noted by family members to be less alert over the past couple of days. so they brought him in for further evaluation. No family at bedside to provide further history. 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 Presenting with ALOC,. Patient is bedridden nonverbal. Opacities less alert. On initial eval labs showing hypernatremia, azotemia, troponins up to 400s. Urine concentrated 1.027. Thrombocytopenia 68, anemia 10.7, RDW high 18.3. Normocytic anemia. Cardiology consulted. Patient currently on Levophed, antibiotics ceftriaxone/doxycycline. Continuing aspirin 81, D5 half-normal at 85 cc,. Patient is having more productive cough through trach collar, respiratory source for infection possible. Patient does not respond to verbal or physical stimuli. Eyes open, brainstem reflexes intact,. We will start hydrocortisone 100 mg IV b.i.d. for 5 days,, patient is off Levophed, we will monitor for 12 hours in D OU before deescalating patient no other sources of infection of the respiratory, continues to be hospice criteria. Family has patient full code right now, appears that family may not understand the severity of patient's condition. 07/12: Patient looks more awake. Hypernatremia improving, creatinine improving,. Patient was severely dehydrated. We will continue to give IV antibiotics ceftriaxone doxycycline. Patient is off vasopressors, on ventilator on trach collar SIMV, can deescalate care to tele. Continue D5W for hypernatremia. Hydrocortisone to stop in 4 days. Patient remains eligible for hospice, we will have to discuss with family. 07/13: on tele now. wound care is seeing today, treating DTI that were found upon admission , will continue woundcare recs and q2h turns. . HNa improving, cont d5w and free water 300 q8h. pneumonia improving and continue suction by RT atleast bid. continue mycomyst and iv abx. restart feeds glucerna with goal 20cc (or per jet worker), stop for residuals >300. will focus on completing iv abx therapy for likely source pulmonary. 07/14: Continue wound care for sacral DTI, start Mucomyst b.i.d., tracheal suctioning by trach collar b.i.d., continuing IV antibiotics. Patient is looking much improved. Hypernatremia improved. Stop D5 W, continue free water 300 cc q.8, restarting feeds Vital high-protein per dietary recommendations. 07/15: Continuing care as per yesterday plan. Patient continues to improve. Labs stable vital signs stable. Continues to be dependent on the current/home vent settings SIMV. Likely we will finish antibiotic therapy tomorrow possible discharge tomorrow. Have already discussed with family in the wants to return to hospice at discharge. Likely discharge tomorrow, we will communicate with family. 07/16: Considering to re-evaluate patient's need for ventilator on the trach collar. We will discuss with family duration of trach, duration of vent dependence, and if patient has ever been tried weaning trial/LTAC weaning trial of vent dependence. Otherwise continue present management 07/17: Pulmonology onboard RT aware CPAP trial today. Plan to hopefully wean off ventilator trach collar trial today. 07/18: Yesterday tried weaning trach collar trial, patient became tachypneic significantly,. Continues to have significant secretions from tracheal suctioned. Continuing treatment for complicated pneumonia with IV antibiotics. Pulmonology consulted and following to assess for weaning potential. 07/19: Patient comfortable, we will continue daily trach collar trials. Appreciate pulmonology follow up. 07/20: Patient is comfortable, awake and alert, following commands. Continue daily trach collar trials CPAP trials. Appreciate pulmonology. We will reassess for the need of antibiotics. Please continue b.i.d. cool-mist and as scheduled nebulizer treatments, continue b.i.d. deep tracheal suctioning per RT. 07/21/25: per social studies department chair' note: '[facility] RECEIVED AN ORDER TO D/C THAT THE PATIENT IS GOING BACK ON HOSPICE. CALLED THE DAUGHTER ROBEROT WHO CONFIRMED, THAT THE PATIENT IS GOING BACK ON HOSPICE. CALLED ANNIKA AT [facility] TOO HIM TO CANCEL THE ORDER FOR [facility]. THE PATIENT IS GOING BACK ON HOSPICE." discharged to hospice when feasible 07/22/2025: remains on trach, pt to be transferred d/c to hospice Diagnosis: Sepsis with septic shock , requiring vasopressor support Pneumonia, aspiration pneumonia possible , Gram-negative/Gram-positive possible , complicated with chronic tracheostomy, ventilator dependent Acute, toxic metabolic encephalopathy Thrombocytopenia Anemia , normocytic Hypernatremia Failure to thrive Pressure ulcer, DTI, stage1-2, POA CVA left weakness January 2025, failure to thrive with PEG tube,, hypertension, AVR 2021, pacemaker 2021 Plan discussed with: Patient Date of Service: Jul 22, 2025 Billing Provider: MANDEEP BENTLEY DO Common Visit Codes: [id number] INP/OBS CARE(HIGH) MANDEEP BENTLEY DO Jul 22, 2025 22:16
[2025-07-23] VITALS (23 sets, daily range): BP systolic 120–145; BP diastolic 55–71; PULSE 59–84; RESP 12–33; TEMP 97.3–98.7; O2SAT 92–99
--- NOTE | 2025-07-23 09:49 | DVHPN2 ---
Reviewed: Care Plan, H&P Changes from previous H/P or p: No Changes General: Per HPI Objective Vitals Vital Signs Date Time Temp Pulse Resp B/P (MAP) Pulse Ox O2 Delivery O2 Flow Rate FiO2 07/23/25 09:21 97.6 60 18 125/71 (89) 98 97.6 07/23/25 08:39 30 07/22/25 20:00 Mechanical Ventilator+ Intake/Output Intake and Output 07/23/25 07:00 Intake Total 245 ml Output Total 1300 ml Balance -1055 ml Intake Oral 0 ml IV Total 150 ml Tube Feeding 95 ml Output Urine Total 1300 ml Exam Gen: 74-year-old male in mild distress. Skin: Warm, dry, normal color and texture, no rash. HEENT: Normocephalic atraumatic, mucous membranes moist and pink. Neck: Cervical and supraclavicular nodes normal without enlargement, trachea is midline, thyroid gland is normal without masses. Pulmonary: Tracheostomy, diminished breath sounds Cardiac: Regular rate and rhythm. No murmur Abdomen: Soft, nontender, nondistended, bowel sounds present all 4 quadrants, no guarding, no rigidity, no organomegaly. Extremities: No cyanosis, clubbing, no edema Neuro: Grossly brainstem reflexes intact, unable to assess nerve 7 and 5, patient nonobstructive interview, reflexes present, in apparent left-sided deficits from prior stroke. Medications Current Medications Medications Dose Ordered Sig/Dayna Route Start Time Stop Time Status Last Admin Dose Admin Nitroglycerin 0.4 mg Q5MINP PRN SL 07/11/25 00:00 Albuterol 2.5 mg Q4HR NEB 07/11/25 14:00 07/23/25 09:43 2.5 MG Ipratropium [place] 0.5 mg Q4HR NEB 07/11/25 14:00 07/23/25 09:43 0.5 MG Aspirin 81 mg DAILY PO 07/12/25 10:00 07/19/25 10:26 81 MG Purified Water 400 ml Q8H GT 07/11/25 15:45 07/23/25 00:36 400 ML Enteral Nutritional Formula 1,000 ml 55ML/HR GT 07/14/25 14:00 07/19/25 17:40 1,000 ML Acetylcysteine 100 mg BID NEB 07/15/25 18:00 07/23/25 06:12 100 MG Laboratory Results Laboratory Tests 07/21/25 04:40 Urinalysis Test 07/10/25 23:48 07/11/25 04:12 Urine Color Yellow (Yellow) Urine Clarity Clear (Clear) Urine pH 6.5 (5.0-9.0) Urine Specific [place] 1.027 (1.001-1.035) Urine Protein Negative (Negative) Urine Ketones Negative (Negative) Urine Blood Negative /uL (Negative) Urine Nitrite Negative (Negative) Urine Bilirubin Negative (Negative) Urine Urobilinogen 2 mg/dL (Negative) H Urine Leukocyte Esterase Negative /uL (Negative) Urine RBC None seen /hpf (0 - 3) Urine Microscopic WBC 1 /HPF (0-3) Urine Squamous Epithelial Cells Few /hpf (<5) Urine Bacteria None seen /hpf (None Seen) Urine Hyaline Casts Few /lpf (0 - 2) Urine Glucose Normal mg/dL (Normal) Urine Osmolality 826 mOsm/kg Microbiology Microbiology Date/Time Source Procedure Growth Status 07/10/25 19:15 Blood Blood Culture - Final Staphylococcus epidermidis Complete Labs and/or images reviewed: Labs reviewed by me, Image(s) reviewed by me Assessment/Plan Assessment/Plan 74-year-old male presents for evaluation of altered mental status. Patient with a history of CVAs bed ridden and nonverbal. Patient noted by family members to be less alert over the past couple of days. so they brought him in for further evaluation. No family at bedside to provide further history. 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 Presenting with ALOC,. Patient is bedridden nonverbal. Opacities less alert. On initial eval labs showing hypernatremia, azotemia, troponins up to 400s. Urine concentrated 1.027. Thrombocytopenia 68, anemia 10.7, RDW high 18.3. Normocytic anemia. Cardiology consulted. Patient currently on Levophed, antibiotics ceftriaxone/doxycycline. Continuing aspirin 81, D5 half-normal at 85 cc,. Patient is having more productive cough through trach collar, respiratory source for infection possible. Patient does not respond to verbal or physical stimuli. Eyes open, brainstem reflexes intact,. We will start hydrocortisone 100 mg IV b.i.d. for 5 days,, patient is off Levophed, we will monitor for 12 hours in D OU before deescalating patient no other sources of infection of the respiratory, continues to be hospice criteria. Family has patient full code right now, appears that family may not understand the severity of patient's condition. 07/12: Patient looks more awake. Hypernatremia improving, creatinine improving,. Patient was severely dehydrated. We will continue to give IV antibiotics ceftriaxone doxycycline. Patient is off vasopressors, on ventilator on trach collar SIMV, can deescalate care to tele. Continue D5W for hypernatremia. Hydrocortisone to stop in 4 days. Patient remains eligible for hospice, we will have to discuss with family. 07/13: on tele now. wound care is seeing today, treating DTI that were found upon admission , will continue woundcare recs and q2h turns. . HNa improving, cont d5w and free water 300 q8h. pneumonia improving and continue suction by RT atleast bid. continue mycomyst and iv abx. restart feeds glucerna with goal 20cc (or per carbon capture power plant operator), stop for residuals >300. will focus on completing iv abx therapy for likely source pulmonary. 07/14: Continue wound care for sacral DTI, start Mucomyst b.i.d., tracheal suctioning by trach collar b.i.d., continuing IV antibiotics. Patient is looking much improved. Hypernatremia improved. Stop D5 W, continue free water 300 cc q.8, restarting feeds Vital high-protein per dietary recommendations. 07/15: Continuing care as per yesterday plan. Patient continues to improve. Labs stable vital signs stable. Continues to be dependent on the current/home vent settings SIMV. Likely we will finish antibiotic therapy tomorrow possible discharge tomorrow. Have already discussed with family in the wants to return to hospice at discharge. Likely discharge tomorrow, we will communicate with family. 07/16: Considering to re-evaluate patient's need for ventilator on the trach collar. We will discuss with family duration of trach, duration of vent dependence, and if patient has ever been tried weaning trial/LTAC weaning trial of vent dependence. Otherwise continue present management 07/17: Pulmonology onboard RT aware CPAP trial today. Plan to hopefully wean off ventilator trach collar trial today. 07/18: Yesterday tried weaning trach collar trial, patient became tachypneic significantly,. Continues to have significant secretions from tracheal suctioned. Continuing treatment for complicated pneumonia with IV antibiotics. Pulmonology consulted and following to assess for weaning potential. 07/19: Patient comfortable, we will continue daily trach collar trials. Appreciate pulmonology follow up. 07/20: Patient is comfortable, awake and alert, following commands. Continue daily trach collar trials CPAP trials. Appreciate pulmonology. We will reassess for the need of antibiotics. Please continue b.i.d. cool-mist and as scheduled nebulizer treatments, continue b.i.d. deep tracheal suctioning per RT. 07/23: Patient was apparently discharged over the weekend. Plan for hospice. Covering physician had spoken to daughter who is making decisions for patient. We will do 1 last trach collar trial today. If patient does not improve, we will likely resume discharge to hospice. With trach collar and ventilator. - waiting pulm to clear ventilator. patietn stable on trach collar now. will continue mucomyst, nebs, and suctioning daily. will continue dc plan , to hospice but can now hopefully go with trach collar oxygen 35%. Diagnosis: Sepsis with septic shock , requiring vasopressor support Pneumonia, aspiration pneumonia possible , Gram-negative/Gram-positive possible , complicated with chronic tracheostomy, ventilator dependent Acute, toxic metabolic encephalopathy Thrombocytopenia Anemia , normocytic Hypernatremia Failure to thrive Pressure ulcer, DTI, stage1-2, POA CVA left weakness January 2025, failure to thrive with PEG tube,, hypertension, AVR 2021, pacemaker 2021 Plan: Aspirin 81, D5W 75 cc hour Holding any DVT prophylaxis Continue other home medications 400 cc free water q.8h D OU status, close monitoring Levophed, maintain map more than 65 Hydrocortisone 100 IV b.i.d. for 5 days Respiratory tree trach collar suction q.4h IV antibiotics ceftriaxone/doxycycline D OU Full code Plan discussed with: Patient My Orders Orders - JAVID BLACKBURN MD Procedure Category Date Status Time Trach Collar Trial RT 07/23/25 Transmitted 09:27 Date of Service: Jul 23, 2025 Billing Provider: JAVDI BLACKBURN MD Common Visit Codes: [id number] INP/OBS CARE(HIGH) JAVID BLACKBURN MD Jul 23, 2025 09:49
[2025-07-23 14:29] LABS: Base Excess 1.8 mmol/L (-2.0-3.0)
--- NOTE | 2025-07-23 17:57 | DVHPN2 ---
Progress Note - Dictate Date Seen: Jul 23, 2025 Medical Necessity Reason Pt with a Central, PICC or Fol: Yes The following are medically ne: Navarro Catheter vital signs Vital Sign Date Time Temp Pulse Resp B/P (MAP) Pulse Ox O2 Delivery O2 Flow Rate FiO2 07/23/25 16:54 97.3 60 20 136/55 (82) 96 97.3 07/23/25 14:21 Trach Collar 07/23/25 09:43 30 07/23/25 08:00 30 Total Intake and Output 07/22/25 07/22/25 07/23/25 15:00 23:00 07:00 Intake Total 200 ml 45 ml 0 ml Output Total 650 ml 650 ml Balance 200 ml -605 ml -650 ml medications Current Medications Medications Dose Ordered Sig/[place] Route Start Time Stop Time Status Last Admin Dose Admin Nitroglycerin 0.4 mg Q5MINP PRN SL 07/11/25 00:00 Albuterol 2.5 mg Q4HR NEB 07/11/25 14:00 07/23/25 14:19 2.5 MG Ipratropium [place] 0.5 mg Q4HR NEB 07/11/25 14:00 07/23/25 14:19 0.5 MG Aspirin 81 mg DAILY PO 07/12/25 10:00 07/23/25 10:06 81 MG Purified Water 400 ml Q8H GT 07/11/25 15:45 07/23/25 07:45 400 ML Enteral Nutritional Formula 1,000 ml 55ML/HR GT 07/14/25 14:00 07/19/25 17:40 1,000 ML Acetylcysteine 100 mg BID NEB 07/15/25 18:00 07/23/25 06:12 100 MG laboratory and microbiology Laboratory Tests 07/21/25 04:40 Test 07/21/25 04:40 Range/Units Serum Glucose 103 74-106 mg/dL Assessment/Plan Acute hypoxic respiratory failure On mechanical ventilator S/p tracheostomy Sepsis 2/2 pneumonia Pneumonia, likely GNR Hypokalemia Hx of nicotine dependence Obesity, BMI 32.1 Events: S/p tracheostomy Tolerating trach collar labs and imaging reviewed Plan: vent support as needed Discussion with family on duration of vent dependence/LTAC-weaning trial off vent. Trach care Continue antibiotics. Continue bronchodilators Awaiting placement Wound care. DVT prophylaxis - SCDs. Dietary Evaluation Review Comments: Nutrition Recommendation: 1) EN Glucerna 1.2 @ 60ml/hr x 24hr (goal). TF at goal volume provides 1728 kcal (100%), 86 gm protein (100%), and 1159 ml free water. 2) Consider TPN/PN if NPO>7 days 3) Monitor NPO status, lab values, weight trend, and I/O Expected Outcomes/Goals: Intake to meet >75% estimated needs Lab values to improve FU 2-3 days Plan discussed with: Other (Rn) HEIDI MATHUR MD Jul 23, 2025 17:57
[2025-07-24] VITALS (17 sets, daily range): BP systolic 107–142; BP diastolic 42–94; PULSE 56–69; RESP 11–23; TEMP 36.1; O2SAT 95–98
--- NOTE | 2025-07-24 09:48 | DVHPN2 ---
Reviewed: Care Plan, H&P Changes from previous H/P or p: No Changes General: Per HPI Objective Vitals Vital Signs Date Time Temp Pulse Resp B/P (MAP) Pulse Ox O2 Delivery O2 Flow Rate FiO2 07/24/25 08:29 97.0 60 18 131/67 (88) 98 97.0 07/24/25 08:17 30 07/23/25 19:56 Trach Collar 10 Intake/Output Intake and Output 07/24/25 06:59 Intake Total 0 ml Output Total 1750 ml Balance -1750 ml Intake Oral 0 ml Output Urine Total 1750 ml Exam Gen: 74-year-old male in mild distress. Skin: Warm, dry, normal color and texture, no rash. HEENT: Normocephalic atraumatic, mucous membranes moist and pink. Neck: Cervical and supraclavicular nodes normal without enlargement, trachea is midline, thyroid gland is normal without masses. Pulmonary: Tracheostomy, diminished breath sounds Cardiac: Regular rate and rhythm. No murmur Abdomen: Soft, nontender, nondistended, bowel sounds present all 4 quadrants, no guarding, no rigidity, no organomegaly. Extremities: No cyanosis, clubbing, no edema Neuro: Grossly brainstem reflexes intact, unable to assess nerve 7 and 5, patient nonobstructive interview, reflexes present, in apparent left-sided deficits from prior stroke. Medications Current Medications Medications Dose Ordered Sig/[place] Route Start Time Stop Time Status Last Admin Dose Admin Nitroglycerin 0.4 mg Q5MINP PRN SL 07/11/25 00:00 Albuterol 2.5 mg Q4HR NEB 07/11/25 14:00 07/24/25 06:04 2.5 MG Ipratropium [place] 0.5 mg Q4HR NEB 07/11/25 14:00 07/24/25 06:04 0.5 MG Aspirin 81 mg DAILY PO 07/12/25 10:00 07/23/25 10:06 81 MG Purified Water 400 ml Q8H GT 07/11/25 15:45 07/24/25 00:14 400 ML Enteral Nutritional Formula 1,000 ml 55ML/HR GT 07/14/25 14:00 07/19/25 17:40 1,000 ML Acetylcysteine 100 mg BID NEB 07/15/25 18:00 07/24/25 06:04 100 MG Laboratory Results Laboratory Tests 07/21/25 04:40 Urinalysis Test 07/10/25 23:48 07/11/25 04:12 Urine Color Yellow (Yellow) Urine Clarity Clear (Clear) Urine pH 6.5 (5.0-9.0) Urine Specific [place] 1.027 (1.001-1.035) Urine Protein Negative (Negative) Urine Ketones Negative (Negative) Urine Blood Negative /uL (Negative) Urine Nitrite Negative (Negative) Urine Bilirubin Negative (Negative) Urine Urobilinogen 2 mg/dL (Negative) H Urine Leukocyte Esterase Negative /uL (Negative) Urine RBC None seen /hpf (0 - 3) Urine Microscopic WBC 1 /HPF (0-3) Urine Squamous Epithelial Cells Few /hpf (<5) Urine Bacteria None seen /hpf (None Seen) Urine Hyaline Casts Few /lpf (0 - 2) Urine Glucose Normal mg/dL (Normal) Urine Osmolality 826 mOsm/kg Blood Gas Results Test 07/23/25 14:21 Arterial Blood pH 7.497 (7.350-7.450) FiO2 % 35.0 Microbiology Microbiology Date/Time Source Procedure Growth Status 07/10/25 19:15 Blood Blood Culture - Final Staphylococcus epidermidis Complete Labs and/or images reviewed: Labs reviewed by me, Image(s) reviewed by me Assessment/Plan Assessment/Plan 74-year-old male presents for evaluation of altered mental status. Patient with a history of CVAs bed ridden and nonverbal. Patient noted by family members to be less alert over the past couple of days. so they brought him in for further evaluation. No family at bedside to provide further history. 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 Presenting with ALOC,. Patient is bedridden nonverbal. Opacities less alert. On initial eval labs showing hypernatremia, azotemia, troponins up to 400s. Urine concentrated 1.027. Thrombocytopenia 68, anemia 10.7, RDW high 18.3. Normocytic anemia. Cardiology consulted. Patient currently on Levophed, antibiotics ceftriaxone/doxycycline. Continuing aspirin 81, D5 half-normal at 85 cc,. Patient is having more productive cough through trach collar, respiratory source for infection possible. Patient does not respond to verbal or physical stimuli. Eyes open, brainstem reflexes intact,. We will start hydrocortisone 100 mg IV b.i.d. for 5 days,, patient is off Levophed, we will monitor for 12 hours in D OU before deescalating patient no other sources of infection of the respiratory, continues to be hospice criteria. Family has patient full code right now, appears that family may not understand the severity of patient's condition. 07/12: Patient looks more awake. Hypernatremia improving, creatinine improving,. Patient was severely dehydrated. We will continue to give IV antibiotics ceftriaxone doxycycline. Patient is off vasopressors, on ventilator on trach collar SIMV, can deescalate care to tele. Continue D5W for hypernatremia. Hydrocortisone to stop in 4 days. Patient remains eligible for hospice, we will have to discuss with family. 07/13: on tele now. wound care is seeing today, treating DTI that were found upon admission , will continue woundcare recs and q2h turns. . HNa improving, cont d5w and free water 300 q8h. pneumonia improving and continue suction by RT atleast bid. continue mycomyst and iv abx. restart feeds glucerna with goal 20cc (or per test carrier), stop for residuals >300. will focus on completing iv abx therapy for likely source pulmonary. 07/14: Continue wound care for sacral DTI, start Mucomyst b.i.d., tracheal suctioning by trach collar b.i.d., continuing IV antibiotics. Patient is looking much improved. Hypernatremia improved. Stop D5 W, continue free water 300 cc q.8, restarting feeds Vital high-protein per dietary recommendations. 07/15: Continuing care as per yesterday plan. Patient continues to improve. Labs stable vital signs stable. Continues to be dependent on the current/home vent settings SIMV. Likely we will finish antibiotic therapy tomorrow possible discharge tomorrow. Have already discussed with family in the wants to return to hospice at discharge. Likely discharge tomorrow, we will communicate with family. 07/16: Considering to re-evaluate patient's need for ventilator on the trach collar. We will discuss with family duration of trach, duration of vent dependence, and if patient has ever been tried weaning trial/LTAC weaning trial of vent dependence. Otherwise continue present management 07/17: Pulmonology onboard RT aware CPAP trial today. Plan to hopefully wean off ventilator trach collar trial today. 07/18: Yesterday tried weaning trach collar trial, patient became tachypneic significantly,. Continues to have significant secretions from tracheal suctioned. Continuing treatment for complicated pneumonia with IV antibiotics. Pulmonology consulted and following to assess for weaning potential. 07/19: Patient comfortable, we will continue daily trach collar trials. Appreciate pulmonology follow up. 07/20: Patient is comfortable, awake and alert, following commands. Continue daily trach collar trials CPAP trials. Appreciate pulmonology. We will reassess for the need of antibiotics. Please continue b.i.d. cool-mist and as scheduled nebulizer treatments, continue b.i.d. deep tracheal suctioning per RT. 07/23: Patient was apparently discharged over the weekend. Plan for hospice. Covering physician had spoken to daughter who is making decisions for patient. We will do 1 last trach collar trial today. If patient does not improve, we will likely resume discharge to hospice. With trach collar and ventilator. - waiting pulm to clear ventilator. patietn stable on trach collar now. will continue mucomyst, nebs, and suctioning daily. will continue dc plan , to hospice but can now hopefully go with trach collar oxygen 35%. 07/24: Patient will be continued on trach collar oxygen, off of vent. Pulmonology appears to be clearing of ventilator as well. Waiting for hospice agency to take patient back to home hospice, continue discharge plan. We will repeat labs today. Diagnosis: Sepsis with septic shock , requiring vasopressor support Pneumonia, aspiration pneumonia possible , Gram-negative/Gram-positive possible , complicated with chronic tracheostomy, ventilator dependent Acute, toxic metabolic encephalopathy Thrombocytopenia Anemia , normocytic Hypernatremia Failure to thrive Pressure ulcer, DTI, stage1-2, POA CVA left weakness January 2025, failure to thrive with PEG tube,, hypertension, AVR 2021, pacemaker 2021 Plan: Aspirin 81, D5W 75 cc hour Holding any DVT prophylaxis Continue other home medications 400 cc free water q.8h D OU status, close monitoring Levophed, maintain map more than 65 Hydrocortisone 100 IV b.i.d. for 5 days Respiratory tree trach collar suction q.4h IV antibiotics ceftriaxone/doxycycline D OU Full code Plan discussed with: Patient, Other My Orders Orders - GONZALEZ AZIZ,FARIQ MD Procedure Category Date Status Time Abg W/ Co-Ox RT 07/23/25 Logged 14:09 Date of Service: Jul 24, 2025 Billing Provider: JAVID BLACKBURN MD Common Visit Codes: [id number] INP/OBS CARE(HIGH) JAVID BLACKBURN MD Jul 24, 2025 09:48
--- NOTE | 2025-07-24 14:57 | DVHPN2 ---
Progress Note - Dictate Date Seen: Jul 24, 2025 Medical Necessity Reason Pt with a Central, PICC or Fol: Yes The following are medically ne: [place] Catheter vital signs Vital Sign Date Time Temp Pulse Resp B/P (MAP) Pulse Ox O2 Delivery O2 Flow Rate FiO2 07/24/25 14:16 95 Trach Collar 6.0 07/24/25 14:16 58 16 07/24/25 14:16 35 35 07/24/25 12:52 97.5 113/67 (82) 97.5 Total Intake and Output 07/23/25 07/23/25 07/24/25 15:00 23:00 07:00 Intake Total 0 ml 0 ml Output Total 850 ml 900 ml Balance -850 ml -900 ml medications Current Medications Medications Dose Ordered Sig/[place] Route Start Time Stop Time Status Last Admin Dose Admin Nitroglycerin 0.4 mg Q5MINP PRN SL 07/11/25 00:00 Albuterol 2.5 mg Q4HR NEB 07/11/25 14:00 07/24/25 14:16 2.5 MG Ipratropium [place] 0.5 mg Q4HR NEB 07/11/25 14:00 07/24/25 14:16 0.5 MG Aspirin 81 mg DAILY PO 07/12/25 10:00 07/24/25 10:00 81 MG Purified Water 400 ml Q8H GT 07/11/25 15:45 07/24/25 07:45 400 ML Enteral Nutritional Formula 1,000 ml 55ML/HR GT 07/14/25 14:00 07/19/25 17:40 1,000 ML Acetylcysteine 100 mg BID NEB 07/15/25 18:00 07/24/25 06:04 100 MG laboratory and microbiology Laboratory Tests 07/21/25 04:40 Test 07/21/25 04:40 Range/Units Serum Glucose 103 74-106 mg/dL Assessment/Plan Acute hypoxic respiratory failure On mechanical ventilator S/p tracheostomy Sepsis 2/2 pneumonia Pneumonia, likely GNR Hypokalemia Hx of nicotine dependence Obesity, BMI 32.1 Events: S/p tracheostomy Tolerating trach collar No new events labs and imaging reviewed Plan: vent support as needed Discussion with family on duration of vent dependence/LTAC-weaning trial off vent. Trach care Continue antibiotics. Continue bronchodilators Awaiting placement Wound care. DVT prophylaxis - SCDs. Dietary Evaluation Review Comments: Nutrition Recommendation: 1) EN Glucerna 1.2 @ 60ml/hr x 24hr (goal). TF at goal volume provides 1728 kcal (100%), 86 gm protein (100%), and 1159 ml free water. 2) Consider TPN/PN if NPO>7 days 3) Monitor NPO status, lab values, weight trend, and I/O Expected Outcomes/Goals: Intake to meet >75% estimated needs Lab values to improve FU 2-3 days Plan discussed with: Other (Rn) HEIDI MATHUR MD Jul 24, 2025 14:57
== END 2025-07-24 20:36 | disposition hospice, home (50) | DRG 870 ==
LOC: EDBD 18:20 → ER 18:20 → OVERFLOW 23:58 → TELE-CENTR 07-12 02:45
PROVIDERS: ADMIT Student in an Organized Health Care Education/Training Program; ATTEND Student in an Organized Health Care Education/Training Program
PROC: 06HY33Z Insertion of Infusion Device into Lower Vein, Percutaneous Approach (ICD-10-PCS; principal; 2025-07-10)
PROC: 5A1955Z Respiratory Ventilation, Greater than 96 Consecutive Hours (ICD-10-PCS; 2025-07-10)
DX: A41.1 Sepsis due to other specified staphylococcus (principal); G92.8 Other toxic encephalopathy; J69.0 Pneumonitis due to inhalation of food and vomit; I21.A1 Myocardial infarction type 2; R65.21 Severe sepsis with septic shock; J96.01 Acute respiratory failure with hypoxia; J15.69 Pneumonia due to other Gram-negative bacteria; J15.9 Unspecified bacterial pneumonia; Z51.5 Encounter for palliative care; Z99.11 Dependence on respirator [ventilator] status; D69.6 Thrombocytopenia, unspecified; Z93.0 Tracheostomy status; I69.354 Hemiplegia and hemiparesis following cerebral infarction affecting left non-dominant side; D64.9 Anemia, unspecified; I11.0 Hypertensive heart disease with heart failure; E66.9 Obesity, unspecified; Z95.2 Presence of prosthetic heart valve; E87.0 Hyperosmolality and hypernatremia; E87.3 Alkalosis; I48.92 Unspecified atrial flutter; I50.22 Chronic systolic (congestive) heart failure; L89.152 Pressure ulcer of sacral region, stage 2; E87.6 Hypokalemia; F17.200 Nicotine dependence, unspecified, uncomplicated; E86.0 Dehydration; I48.91 Unspecified atrial fibrillation; R62.7 Adult failure to thrive; R73.03 Prediabetes; Z74.01 Bed confinement status; Z68.32 Body mass index [BMI] 32.0-32.9, adult; Z93.1 Gastrostomy status; Z95.0 Presence of cardiac pacemaker; Z79.82 Long term (current) use of aspirin; Z79.899 Other long term (current) drug therapy
CPT/HCPCS: 36415; 36556; 36600; 70450; 71045; 80048; 80053; 80061; 80307; 80320; 81001; 82550; 82805; 82962; 83036; 83605; 83735; 83880; 83930; 83935; 84132; 84295; 84443; 84484; 85025; 85610; 85730; 87040; 87077; 87186; 93005; 93306; 94002; 94003; 94640; 96361; 96365; 99291; G0378; J2543; J3480; J7042